=== PATIENT | male | born 1945 | race Caucasian/White ===

== ENCOUNTER → 2024-04-14 08:27 | Outpatient (REF) | payer OTHER, SELFPAY | LOC: RAD 08:27 | PROVIDERS: ATTENDING PHYSICIAN Internal Medicine | DX: M25.552 Pain in left hip (principal) | CPT/HCPCS: 73502 ==

== ENCOUNTER → 2024-05-12 17:24 | Outpatient (REF) | payer OTHER, SELFPAY | LOC: MRI 17:24 | PROVIDERS: ATTENDING PHYSICIAN Orthopaedic Surgery; FAMILY PHYSICIAN Internal Medicine | DX: M16.12 Unilateral primary osteoarthritis, left hip (principal) | CPT/HCPCS: 73721 ==

== ENCOUNTER → 2024-07-07 12:59 | Outpatient (REF) | payer OTHER, SELFPAY | LOC: RCS 12:59 | PROVIDERS: ATTENDING PHYSICIAN Student in an Organized Health Care Education/Training Program; FAMILY PHYSICIAN Internal Medicine | DX: I10 Essential (primary) hypertension (principal) | CPT/HCPCS: 93306 ==

== ENCOUNTER 2024-08-15 13:13 | Outpatient (RCR) | payer OTHER, SELFPAY | END 2024-08-15 23:59 | disposition home or self-care (01) | LOC: RPT 13:13 | PROVIDERS: ATTENDING PHYSICIAN Physician Assistant; FAMILY PHYSICIAN Internal Medicine | DX: Z47.1 Aftercare following joint replacement surgery (principal); Z73.6 Limitation of activities due to disability; R26.2 Difficulty in walking, not elsewhere classified; M62.81 Muscle weakness (generalized); M25.552 Pain in left hip; Z96.642 Presence of left artificial hip joint | CPT/HCPCS: 97110; 97112; 97161 ==

== ENCOUNTER 2024-08-25 10:53 | Outpatient (RCR) | payer OTHER, SELFPAY | END 2024-08-25 23:59 | disposition home or self-care (01) | LOC: RPT 10:53 | PROVIDERS: ATTENDING PHYSICIAN Physician Assistant; FAMILY PHYSICIAN Internal Medicine | DX: Z47.1 Aftercare following joint replacement surgery (principal); R26.2 Difficulty in walking, not elsewhere classified; M62.81 Muscle weakness (generalized); Z73.6 Limitation of activities due to disability; Z96.642 Presence of left artificial hip joint | CPT/HCPCS: 97110; 97112; 97530 ==

== ENCOUNTER 2025-06-03 01:40 | Inpatient (IN) | payer OTHER, SELFPAY ==
[2025-06-02 18:37] VITALS: BP 156/84
--- NOTE | 2025-06-02 22:55 | ED.GENMED ---
History of Present Illness
General
Chief Complaint: Musculo-Skeletal Complaint
Time Seen by Provider: 06/02/25 20:33
History of Present Illness
History of Present Illness:
The patient is an 79-year-old male with history of hypertension, hyperlipidemia, impaired fasting glucose, hypothyroidism, lumbar disc disease, presenting with right arm weakness and a cramping episode. The weakness began approximately three weeks
ago and has been progressively worsening since its onset. The patient reports an inability to fully extend or control his arm. This weakness has been consistent, without associated pain, and primarily affects the right hand and wrist, leading to
difficulty in performing tasks such as grasping. Tonight, while eating dinner, the patient experienced a sudden cramp in his right hand, causing uncontrolled shaking and finger stiffness, lasting over 30 seconds. There was no loss of consciousness,
and the episode resolved spontaneously. The patient reports no neck pain and denies any issues with ambulation or balance. He is right-hand dominant.
The incident occurred during dinner, while the patient was consuming soup, which triggered sudden hand cramping. He noted it as the first such occurrence. No prior history of similar episodes was mentioned. He was evaluated by Dr. Alfonso on May 29
with concern for neuropraxia and is scheduled for EMG, nerve conduction study of right upper extremity June 08 and is scheduled for MRI cervical spine June 12. The patient has been scheduled for an EMG nerve conduction study and MRI of the neck
to further assess for possible nerve compression or other underlying issues.
Patient states he has had no difficulty ambulating, no chest pain or shortness of breath, no dizziness nor lightheadedness. He was working out in the garden today, lifting buckets etc. He has had no episodes of dropping objects but admits that he
has had progressive weakness of his right hand grasp and progressive weakness in right wrist extension over the past 3 weeks.
Past History
Past History
ED Past Medical History: HTN, Hypercholesterolemia, Hypothyroidism and Other (Lumbar disc disease, impaired fasting glucose)
ED Past Surgical History: Orthopedic (Hip replacement)
Social History
Tobacco: Non-smoker
Alcohol: None
Personal:
Living: with family
Employment: Retired
Family History
Family History: Other (Noncontributory)
Phy Exam
Physical Exam
Physical Exam:
GENERAL: 79-year-old gentleman who appears somewhat younger than stated age, bright and alert, pleasant, easily communicative and in no acute distress. and daughter are accompanying.
EYE: pupils equal and reactive. anicteric. No facial asymmetry.
NECK: Supple, nontender, no meningismus, full range of motion without difficulty nor pain, no significant adenopathy.
ENT: oral mucosa is moist. No rhinorrhea.
CARDIAC: Regular rate and rhythm. no murmur.
LUNGS: Clear breath sounds bilaterally, no acute respiratory distress, no wheezes/rales/rhonchi
ABDOMEN: Soft, nondistended, without focal tenderness
NEUROLOGICAL: Alert and oriented x3, there is mild weakness right wrist extension, very mild weakness right hand grasp. Negative drift. Shoulder shrug is equal bilaterally. Sensation grossly intact bilaterally. Gait is austin and steady.
SKIN: Warm and dry, normal color, skin intact. No rash.
MUSCULOSKELETAL: No C/C/E. peripheral pulses are full and equal b/l. No palpable tenderness.
PSYCH: Normal and appropriate interaction.
Course
Orders/Labs/Results
Orders:
Orders
06/02/25 22:30
CT Head W/o Iv Contrast Urgent
Comment:
Reason For Exam: 3 week hx R arm/hand weakness-worsening
06/02/25 23:55
Complete Blood Count/With Diff Urgent
Comprehensive Metabolic Panel Urgent
Abnormal Lab Results
06/02/25
23:55
WBC 13.3 H 10^3/uL
(4.8-10.8)
RBC 3.98 L 10^6/uL
(4.70-6.10)
Hgb 12.1 L g/dL
(13.0-18.0)
Hct 35.0 L %
(39.0-52.0)
Abs Immat Gran (auto) 0.1 H 10^3/uL
(0-0.05)
Absolute Neuts (auto) 8.1 H 10^3/uL
(1.4-6.5)
Absolute Monos (auto) 1.4 H 10^3/uL
(0.1-0.6)
Monocytes % 10.2 H %
(1.7-9.3)
06/02/25 23:55
Vital Signs
Initial and Last Documented VS:
Initial Vital Signs
Temp Pulse Resp BP Pulse Ox
98.6 F 100 16 156/84 97
06/02/25 18:37 06/02/25 18:37 06/02/25 18:37 06/02/25 18:37 06/02/25 18:37
Last Documented Vital Signs
Temp Pulse Resp BP Pulse Ox
98.6 F 100 16 156/84 97
06/02/25 18:37 06/02/25 18:37 06/02/25 18:37 06/02/25 18:37 06/02/25 22:57
MDM/Problems Addressed
Differential Diagnosis Includes:
The Differential Diagnosis includes, in no particular order and is not limited to:
1. Cervical radiculopathy
2. Peripheral neuropathy
3. Carpal tunnel syndrome
4. Brachial plexus injury
5. Stroke
6. Muscular dystrophy
7. Amyotrophic lateral sclerosis (ALS)
8. Multiple sclerosis
9. Myasthenia gravis
10. Essential tremor
MDM/Problems Addressed:
Right upper extremity weakness, progressive over the past 3 weeks. No associated pain.
Episode of right hand/forearm flexion contraction/muscle spasm/cramping tonight lasting approximately 30 seconds.
Concern for peripheral neuropathy versus cervical radiculopathy, other consideration is subacute focal stroke.
No other associated symptoms, no change in medications. No dizziness or lightheadedness. No change in medications. Nothing to suggest electrolyte abnormality. He follows regularly with PCP, cardiology, up-to-date with routine laboratory studies
thus exacerbation of thyroid disorder is unlikely.
Recommend CT of the head.
He is already scheduled for an outpatient EMG as well as MRI in the near future.
It is also reassuring that cramping episode was brief in duration and there has been overall lack of associated neurologic symptoms.
Chronic conditions affecting care: HTN
*Radiology
Radiology exam reviewed: radiology read reviewed
*Pulse Oximetry
SaO2: 97
Oxygen Mode of Delivery: Room air
Patient hypoxic: no
*Critical Care Note
Total Time (30-74mins, 75-104mins- exclusive of procedures): Not Applicable
Update Note
Update Note:
23:48
CAT scan shows moderate-sized area of vasogenic edema in the high left frontal lobe. Suggestion of a 1.2 x 0.8 cm cortical versus extra-axial lesion in this location. There is no mass effect nor midline shift. No intracranial hemorrhage.
Findings however concerning for neoplastic process. Other consideration is infection/cerebritis but overall history is not suggestive of infectious process.
Due to concern for neoplastic process as well as concern for somewhat rapidly progressing symptoms patient will require acute hospitalization for further evaluation.
ED Attending Note
-
Portions of this chart may have been created with voice recognition software.� Occasional wrong word or��sound alike� substitutions may have occurred due to the inherent limitations of voice recognition software.
Discharge Plan
Departure
Patient Disposition: Admit
Date of Disposition: 06/02/25
Time of Disposition: 23:50
Admit to: Med/Surg
Admit to doctor: Morgan
Presentation/result/management discussed w/ accepting MD/DO: Hospitalist
Condition: Serious
Discharge Problem:
Weakness of right upper extremity, vasogenic edema left frontal lobe
Referrals:
Rosa Delgado MD [Family Provider, Internal Medicine]
Interventions
Interventions:
*Risk Screen - Suicide Last Done: 06/02/25 18:37
*General Assessment Last Done: 06/02/25 22:48
*Neglect/Abuse Screening Last Done: 06/02/25 18:37
*ED- Fall Risk Assessment Last Done: 06/02/25 22:48
*ED COVID-19 Vaccine History Last Done: 06/02/25 22:48
ED-Musculoskeletal Assessment Last Done: 06/02/25 22:48
Discharge Date and Time
Print Language: CITIZEN OF [place]
[2025-06-03 00:07] LABS: Hematocrit 35.0 % (39.0-52.0); Hemoglobin 12.1 g/dL (13.0-18.0); Mean Corp Hgb Conc. 34.6 g/dL (33.0-37.0); Mean Corpuscular Volume 87.9 fL (80.0-94.0); Nucleated Red Blood Cells % 0 % (-); Platelet Count 296 10^3/uL (130-400); Red Cell Dist. Width 12.4 % (11.5-14.5)
[2025-06-03 00:28] LABS: ALT (SGPT) 15 U/L (0-50); AST (SGOT) 14 U/L (17-59); Albumin 4.3 g/dl (3.5-5.0); Alkaline Phosphatase 50 U/L (38-126); Blood Urea Nitrogen 29 mg/dl (9-20); Calcium 9.4 mg/dl (8.4-10.2); Carbon Dioxide 22 mmol/L (22-30); Chloride 106 mmol/L (98-107); Glucose 151 mg/dl (70-99); Potassium 4.4 mmol/L (3.5-5.1); Sodium 136 mmol/L (135-145); Total Protein 6.8 g/dl (6.3-8.2); eGFR > 60.00
--- NOTE | 2025-06-03 00:28 | HPS.HSE ---
Family Physician
-
Family Physician: Rosa Delgado
Chief Complaint
-
Right hand weakness
History of Present Illness
This is a 79-year-old male with past medical history significant for hypertension, hyperlipidemia, hypothyroid, GERD/acid reflux presenting to the emergency department to the hospital with 3 weeks of right upper extremity weakness.
Patient reports that about 3 weeks ago he started noticing weakness specifically in the extension of his right hand. He also notes weakness in his fingers on extension. He still able to make a fist. He denies any paresthesias. He denies any
numbness. He has not been having any tingling. He denies any swelling. He denies any injury to the elbows or shoulders or neck. He has not been having any neck stiffness or pain. He denies any headache nausea or vomiting. He denies having any
double vision or blurry vision. He denies any weakness anywhere else. He denies any prior history of CVA.
Over the last few weeks he also reports that he has been having some abdominal symptoms which included some bloating after eating with associated heartburn that radiates to his back. He has been taking famotidine premeals without much improvement.
He denies any melena. He denies having any hematochezia. Patient has no recent travels but he noted that while working in the yard a few weeks ago he had mosquito bite.
In the emergency department he was afebrile, blood pressure was 156/80 with a pulse of 100 and satting 99% on room air.
White count was 13.3 hemoglobin 12.1 plate count of 296. He is electrolytes were all normal. BUN/creatinine were normal. Glucose was normal. LFTs were all within normal limits.
CT of the head was notable for moderate size area of vasogenic edema in the high left frontal lobe with suggestion of 1.2 x 0.8 cm cortical or extra-axial lesion in this location. Concerning for neoplastic process. No significant mass effect or
midline shift. No acute intracranial hemorrhage.
Medical History
Past Medical History
Past Medical History: Reports GERD, HTN and Hypercholesterolemia
Past Surgical History: Reports Orthopedic (Left total knee arthroplasty)
Social History
Tobacco: Former Smoker
Alcohol: Occasional
Drug: None
Personal:
Living: With Family
Employment: Retired
Family History
Family History: Not pertinent
Allergies / Home Medications
Allergies reflects when Allergies were last updated in [employer].
Home Medications with original date entered in [employer]
Allergy/Medication List:
Allergies
Allergy/AdvReac Type Severity Reaction Status Date / Time
No Known Allergies Allergy Unverified 06/02/25 18:37
Home Medications
hydroCHLOROthiazide 25 MG 1 tablet in the morning Orally Once a day for 90 days Aug, Active
Spironolactone 50 MG 1 tablet Orally Once a day for 90 days Jun, Active
Synthroid 75 MCG 1 tablet on an empty stomach in the morning Orally Once a day for 90 days Active
Cardizem CD 360 MG 1 capsule Orally Once a day for 90 days Active
Famotidine 20 MG TAKE 1 TABLET BY MOUTH TWICE A DAY for 90 days Active
Crestor 10 MG take 1 tablet by oral route every day Oral Once a day for 90 days Nov, Active
Nitroglycerin 0.[address] 1 tablet by sublingual route as needed for high blood pressure Sublingual Once a Day for 90 days Active
Multi-Vitamins take 1 tablet by oral route every day with food Oral Active
Celecoxib 100 MG 1 capsule with food Orally Twice a Day for 15 days Jun, Active
Cozaar 50 MG 1 tablet Orally Twice a Day for 90 days Aug, Active
Review of Systems
-
Constitutional: Reports No Symptoms
EENT: Reports No Symptoms
Respiratory: Reports No Symptoms
Cardiac: Reports No Symptoms
Abdomen/GI: Reports Abdominal Pain; Denies Nausea, Vomiting, Diarrhea, Black Stools or Anorexia
: Reports No Symptoms
Musculoskeletal: Reports No Symptoms
Skin: Reports No Symptoms
Neurological: Reports Weakness (Weakness on extension of wrist and fingers of the right upper extremity)
Endocrine: Reports No Symptoms
Hematologic/Lymphatic: Reports No Symptoms
Psych: Reports No Symptoms
Physical Exam
Vital Signs
Vital Signs
Temp Pulse Resp BP Pulse Ox
98.6 F 100 16 156/84 97
06/02/25 18:37 06/02/25 18:37 06/02/25 18:37 06/02/25 18:37 06/02/25 22:57
Physical Exam
General: Well Developed, Well Nourished and No Apparent Distress
HEENT: NormoCephalic, Moist mucous membranes and Atraumatic
Respiratory: Clear
Cardiac: S1/S2 and Regular Rhythm; No Murmur or Rub
GI: Soft, Non Tender, Non Distended and Normal Bowel Sounds; No Organomegaly
Rectal: Deferred by Provider
Musculoskeletal: No Clubbing, No Cyanosis and No Edema
Skin: No Rash
Neuro: AO x 3, Cranial Nerves Intact, No Sensory Deficits and Other (3 out of 5 weakness on extension of the wrist and fingers of the right upper extremity); No Slurred Speech or Facial Droop
Psych: Calm
Laboratory Results
-
06/02/25 23:55
Data Reviewed
-
CT Scan: Report Reviewed by me
Lab Data: Labs Reviewed by me
Old Records: Reviewed
Impression/Plan
-
IMPRESSION:
79-year-old with past medical history of hypertension, hyperlipidemia, hypothyroid presenting with weakness in the right upper extremity especially at the wrist and fingers and found to have left frontal lobe lesion with vasogenic edema concerning
for neoplastic process. No significant mass effect or midline shift. His labs are all within normal limits. He is currently well-appearing and in no acute distress.
PLAN:
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 No prior history of malignancy. Likely explanation for his weakness.
-Admit to [facility]
-Start decadron for mild to moderate symptoms, will ommit loading dose and give 2mg bid
-MRI brain with and without contrast
-Neurology consult
-May need neurosurgery consult following imaging
-Neurochecks every shift
Dyspepsia - Normal lfts, benign abdominal exam, no melena.
- start ppi
- continue famotidine
- antiemetics
- stool occult blood testing
- consider GI consult if + occult, otherwise outpatient dyspepsia w/u
HTN - stable
- continue his cardizem, spironolactone, hctz and losartan
- continue rosuvostatin
DVT PPX - lovenox sq
Code status - Full Code
[2025-06-03] MEDS: DECADRON 2 MG PO ×3 (01:53→21:18)
[2025-06-03 02:30] VITALS: BP 136/70; BMI 26.7
[2025-06-03] MEDS: SYNTHROID 75 MCG PO (05:34)
[2025-06-03 05:52] LABS: Hematocrit 37.8 % (39.0-52.0); Hemoglobin 12.7 g/dL (13.0-18.0); Mean Corp Hgb Conc. 33.6 g/dL (33.0-37.0); Mean Corpuscular Volume 90.9 fL (80.0-94.0); Platelet Count 322 10^3/uL (130-400); Red Cell Dist. Width 12.5 % (11.5-14.5)
[2025-06-03 06:15] LABS: Blood Urea Nitrogen 27 mg/dl (9-20); Calcium 9.5 mg/dl (8.4-10.2); Carbon Dioxide 20 mmol/L (22-30); Chloride 104 mmol/L (98-107); Estimated Creatinine Clearance 50 ml/min; Glucose 167 mg/dl (70-99); Magnesium 2.1 mg/dl (1.6-2.3); Potassium 4.6 mmol/L (3.5-5.1); Sodium 135 mmol/L (135-145); eGFR > 60.00
[2025-06-03 08:29] VITALS: BP 122/59
[2025-06-03] MEDS: CARDIZEM CD 360 MG PO (08:52)
[2025-06-03] MEDS: PROTONIX 40 MG PO (08:52)
[2025-06-03] MEDS: ALDACTONE 50 MG PO (08:53)
[2025-06-03] MEDS: ORETIC 12.5 MG PO (08:54)
[2025-06-03] MEDS: COZAAR 50 MG PO ×2 (08:54→21:24)
--- NOTE | 2025-06-03 09:46 | W.PN.UPDATE ---
Addendum entered and electronically signed by Blu Rivero MD 06/03/25 12:52:
Discussed with neurology, no need for neurosurgery. MRI.
Original Note:
Update Note
Progress Note Update
Admitted past midnight. Nonbillable note
Patient is seen and examined at bedside
General: Well Developed, Well Nourished and No Apparent Distress
HEENT: NormoCephalic, Moist mucous membranes and Atraumatic
Respiratory: Clear
Cardiac: S1/S2 and Regular Rhythm; No Murmur or Rub
GI: Soft, Non Tender, Non Distended and Normal Bowel Sounds
Musculoskeletal: No Edema
Skin: No Rash
Neuro: AO x 3, Cranial Nerves Intact, No Sensory Deficits and Other (4 out of 5 weakness on extension of the wrist and fingers of the right upper extremity); No Slurred Speech or Facial Droop
Psych: Calm
Right upper extremity weakness
CT scan with moderate area of probable vasogenic edema in left frontal lobe due to extra-axial/cortical lesion
MRI pending
Continue with Decadron for now
Neurology evaluation
-Neurology consult
-May need neurosurgery consult following imaging
-cw Neurochecks
Dyspepsia - Normal lfts, benign abdominal exam, no melena.
- start ppi
- continue famotidine
- antiemetics
- consider GI consult if + occult, otherwise outpatient dyspepsia w/u
HTN - stable
- continue his cardizem, spironolactone, hctz and losartan
- continue rosuvostatin
asked RN for med rec; these meds arent listed in his chart
DVT PPX - lovenox sq
Code status - Full Code
[2025-06-03] MEDS: OMNIPAQUE 50 ML PO (12:27)
--- NOTE | 2025-06-03 14:28 | CON.NEURO ---
Neuro Assessment/Plan
Assessment
Head CT imgs rev'd, area of vasogenic edema high left frontal
MRI brain imgs rev'd with patient and family showing multiple ~5 enhancing masses bilateral hemispheres with the vasogenic edema
79 year old man, brain metastasis until proven otherwise
CT chest/abd/pel with IV/PO contrast looking for primary
all questions answered except that we will determine if LP is needed after the CT torso
Consultation
Order
Date of Consultation: 06/03/25
Requesting Provider: Blu Rivero
Reason for Consult: vasogenic edema
Subjective/Objective
Subjective Data
Date of Service: June 03, 2025
from h&p:
This is a 79-year-old male with past medical history significant for hypertension, hyperlipidemia, hypothyroid, GERD/acid reflux presenting to the emergency department to the hospital with 3 weeks of right upper extremity weakness.
Patient reports that about 3 weeks ago he started noticing weakness specifically in the extension of his right hand. He also notes weakness in his fingers on extension. He still able to make a fist. He denies any paresthesias. He denies any
numbness. He has not been having any tingling. He denies any swelling. He denies any injury to the elbows or shoulders or neck. He has not been having any neck stiffness or pain. He denies any headache nausea or vomiting. He denies having any
double vision or blurry vision. He denies any weakness anywhere else. He denies any prior history of CVA.
Objective Data
Vital Signs
Temp Pulse Resp BP Pulse Ox
36.3 C 77 21 122/59 96
06/03/25 08:29 06/03/25 08:29 06/03/25 08:29 06/03/25 08:29 06/03/25 08:29
Lab Results
06/03/25 05:30
06/03/25 05:30
Sodium 135 mmol/L (135-145) 06/03/25 05:30
Potassium 4.6 mmol/L (3.5-5.1) 06/03/25 05:30
BUN 27 mg/dl (9-20) H 06/03/25 05:30
Glucose 167 mg/dl (70-99) H 06/03/25 05:30
Calcium 9.5 mg/dl (8.4-10.2) 06/03/25 05:30
Patient Allergies
No Known Allergies Allergy (Unverified 06/02/25 18:37)
Physical Exam
-
AAOx3, speech clear, language intact
VFF, EOMI, right facial droop
RUE 4/5, LUE and bilat LE 5/5
sensation intact to touch
Medications
-
Active Medications
Generic Name Dose Route Start Last Admin
Trade Name Freq PRN Reason Stop Dose Admin
Acetaminophen 650 mg 06/03/25 03:02
Acetaminophen 325 Mg Tablet PO 07/01/25 03:01
Q4HPRN PRN
mild pain/QUACH/temp> 100.4F
Al Hydrox/Mg Hydrox/Simethicone 30 ml 06/03/25 03:02
Mag/Al/Simethicone Suspension 30 Ml Cup PO 07/01/25 03:01
Q6HPRN PRN
Heartburn
Bisacodyl 10 mg 06/03/25 03:02
Bisacodyl 10 Mg Rectal Suppository RECTAL 07/01/25 03:01
[id number] PRN
constipation
Dexamethasone 2 mg 06/03/25 08:00 06/03/25 08:52
Dexamethasone 2 Mg Tablet PO 07/01/25 07:59 2 mg
Q12 DAVID Administration
Diltiazem HCl 360 mg 06/03/25 08:00 06/03/25 08:52
Diltiazem 180 Mg Extended Release (24 H) Capsule PO 07/01/25 07:59 360 mg
DAILY DAVID Administration
Enoxaparin Sodium 40 mg 06/03/25 18:00
Enoxaparin Sodium 40 Mg/0.4 Ml Syringe SC 07/01/25 17:59
QPM DAVID
Famotidine 20 mg 06/04/25 08:00
Famotidine 20 Mg Tablet PO 07/02/25 07:59
DAILY DAVID
Hydrochlorothiazide 12.5 mg 06/03/25 08:00 06/03/25 08:54
Hydrochlorothiazide 12.5 Mg Tablet PO 07/01/25 07:59 12.5 mg
DAILY DAVID Administration
Levothyroxine Sodium 75 mcg 06/03/25 06:00 06/03/25 05:34
Levothyroxine 75 Mcg Tablet PO 07/01/25 05:59 75 mcg
DAILY @ 0600 DAVID Administration
Losartan Potassium 50 mg 06/03/25 08:00 06/03/25 08:54
Losartan 50 Mg Tablet PO 07/01/25 07:59 50 mg
BID DAVID Administration
Ondansetron HCl 4 mg 06/03/25 03:02
Ondansetron 4 Mg/2 Ml Vial IV 07/01/25 03:01
Q6HPRN PRN
nausea and vomiting
Pantoprazole Sodium 40 mg 06/03/25 08:00 06/03/25 08:52
Pantoprazole 40 Mg Delayed Release Tablet PO 07/01/25 07:59 40 mg
DAILY DAVID Administration
Polyethylene Glycol 17 grams 06/03/25 03:02
Polyethylene Glycol Powder 17 Grams Packet PO 07/01/25 03:01
DAILYPRN PRN
constipation
Rosuvastatin Calcium 10 mg 06/03/25 18:00
Rosuvastatin (Crestor) 10 Mg Tablet PO 07/01/25 17:59
QPM DAVID
Senna/Docusate Sodium 1 tablet 06/03/25 03:02
Docusate W/Senna (Aziza-Colace) Tablet PO 07/01/25 03:01
BIDPRN PRN
constipation
Sodium Chloride 0 flush 06/03/25 04:00
Sodium Chloride 0.9% (Flush) Syringe IV 07/01/25 03:59
PER PROTOCOL DAVID
Spironolactone 50 mg 06/03/25 08:00 06/03/25 08:53
Spironolactone 50 Mg Tablet PO 07/01/25 07:59 50 mg
DAILY DAVID Administration
Home Medications
�Medication �Instructions �Recorded
diltiazem HCl 360 mg 360 mg PO DAILY 06/03/25
capsule,extended release 24 hr
famotidine 20 mg tablet 20 mg DAILY 06/03/25
hydrochlorothiazide 25 mg PO DAILY 06/03/25
levothyroxine 75 mcg PO DAILY 06/03/25
losartan 50 mg tablet 50 mg PO BID 06/03/25
rosuvastatin 10 mg PO HS 06/03/25
spironolactone 50 mg PO DAILY 06/03/25
[2025-06-03 16:14] VITALS: BP 118/61
[2025-06-03] MEDS: CRESTOR 10 MG PO (18:35)
[2025-06-03] MEDS: LOVENOX 40 MG SC (18:35)
[2025-06-03 23:49] VITALS: BP 109/64
[2025-06-04] MEDS: SYNTHROID 75 MCG PO (06:13)
[2025-06-04 07:00] VITALS: BP 133/69
[2025-06-04 07:23] LABS: Hematocrit 36.6 % (39.0-52.0); Hemoglobin 12.4 g/dL (13.0-18.0); Mean Corp Hgb Conc. 33.9 g/dL (33.0-37.0); Mean Corpuscular Volume 89.3 fL (80.0-94.0); Nucleated Red Blood Cells % 0 % (-); Platelet Count 335 10^3/uL (130-400); Red Cell Dist. Width 12.5 % (11.5-14.5)
[2025-06-04 07:47] LABS: Blood Urea Nitrogen 31 mg/dl (9-20); Calcium 9.4 mg/dl (8.4-10.2); Carbon Dioxide 19 mmol/L (22-30); Chloride 104 mmol/L (98-107); Estimated Creatinine Clearance 50 ml/min; Glucose 201 mg/dl (70-99); Potassium 4.9 mmol/L (3.5-5.1); Sodium 135 mmol/L (135-145); eGFR > 60.00
--- NOTE | 2025-06-04 08:58 | CON.ONC ---
Addendum entered and electronically signed by Oumou Nolan MD 06/04/25 17:47:
Consult requested by Dr. Blu Rivero 06/03/25 at 11:41.
Consult performed by Dr. Oumou Beatty on 06/04/25 at 11:30 am.
Reason for consult: lung and brain masses
Original Note:
Impression
Impression
79yoM PMH HTN, HLD, hypothyroidism, GERD presenting with abdominal symptoms 2 months, 3 weeks RUE weakness with an onset of arm spasming. FH cancer. Hx 30 pack years.
Exam positive for mild RUE weakness compared to LUE. Lung sounds clear bilaterally. Neuro exam grossly intact. Imaging positive for multiple lung and brain masses with possibility of small colon mass vs stool. WBC elevated 14.8. Mild normocytic
anemia 12.4. Afebrile vitals stable.
CT C/A/P: Extensive diffuse bilateral pulmonary metastatic disease. There is a dominant mass in the right upper lobe measuring 4.1 cm. Conceivably, this could represent primary neoplasm.
Hilar and mediastinal adenopathy.
2.5 cm mass versus focal stool at the junction of the distal descending colon and proximal sigmoid colon. Recommend correlation with colonoscopy.
Incidental findings include moderately prominent gynecomastia. Renal cysts.
Brain MRI: Several (approximately 4) enhancing intracranial brain masses at the ríos-white matter junctions with associated vasogenic edema, highly suspicious for metastases. No MR evidence for acute infarct or hemorrhage
Sudden arm spasm is concerning for partial seizure with correlated brain masses. Symptoms improved on dexamethasone.
Plan
Plan
#Brain masses
Continue dexamethasone. Monitor neuro symptoms.
[facility] consult for brain mets SRS vs WBT.
#Lung masses
Recommend consult to pulmonology for possible bronchoscopic biopsy. Rule out fungal origin vs malignancy. Improvement of neuro symptoms on dexamethasone points towards malignant origin. Confirm with bx.
Patient History
History of Present Illness
79yoM PMH HTN, HLD, hypothyroidism, GERD presenting with 3 weeks RUE weakness with an onset of arm spasming that prompted presentation. Pt reports abdominal pain and reflux since april with change in taste, reduced appetite, and 10lb weight
loss. Denies blood in stool, change in BM, or emesis. No change in stool caliber. Denies dizziness, blurry vision, headaches. Daughter in room describes complaints of bloating and distention as well.
Today, pt is feeling well with improved r arm weakness and no spasms.
He reports his last colonoscopy was when he was 71 years old. No personal hx cancer. SH positive for remote smoking hx for 30 pack years quit 35 years ago. 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 in room reports possible
exposure to moldy house when helping son on construction project.
FH: Father and brothers of unknown type of cancer. One brother had lung cancer.
Past-Medical/Surgical History
PSH:L hip replacement
Patient Medication
�Medication �Instructions �Recorded �Confirmed �Last Taken �Type
diltiazem HCl 360 mg 360 mg PO DAILY Heart Disease/BP 06/03/25 06/03/25 06/02/25 08:00 History
capsule,extended release 24 hr
famotidine 20 mg tablet 20 mg DAILY Gastrointestinal Issue 06/03/25 06/03/25 06/02/25 08:00 History
hydrochlorothiazide 25 mg PO DAILY Blood Pressure 06/03/25 06/03/25 06/03/25 08:00 History
levothyroxine 75 mcg PO DAILY Thyroid 06/03/25 06/03/25 06/03/25 06:00 History
losartan 50 mg tablet 50 mg PO BID Blood Pressure 06/03/25 06/03/25 06/03/25 08:00 History
rosuvastatin 10 mg PO HS cholesterol 06/03/25 06/03/25 06/01/25 18:00 History
spironolactone 50 mg PO DAILY Fluid Retention/BP 06/03/25 06/03/25 06/02/25 08:00 History
Active Medications
Generic Name Dose Route Start Last Admin
Trade Name Freq PRN Reason Stop Dose Admin
Acetaminophen 650 mg 06/03/25 03:02
Acetaminophen 325 Mg Tablet PO 07/01/25 03:01
Q4HPRN PRN
mild pain/QUACH/temp> 100.4F
Al Hydrox/Mg Hydrox/Simethicone 30 ml 06/03/25 03:02
Mag/Al/Simethicone Suspension 30 Ml Cup PO 07/01/25 03:01
Q6HPRN PRN
Heartburn
Bisacodyl 10 mg 06/03/25 03:02
Bisacodyl 10 Mg Rectal Suppository RECTAL 07/01/25 03:01
[id number] PRN
constipation
Dexamethasone 2 mg 06/03/25 08:00 06/03/25 21:18
Dexamethasone 2 Mg Tablet PO 07/01/25 07:59 2 mg
Q12 DAVID Administration
Diltiazem HCl 360 mg 06/03/25 08:00 06/03/25 08:52
Diltiazem 180 Mg Extended Release (24 H) Capsule PO 07/01/25 07:59 360 mg
DAILY DAVID Administration
Enoxaparin Sodium 40 mg 06/03/25 18:00 06/03/25 18:35
Enoxaparin Sodium 40 Mg/0.4 Ml Syringe SC 07/01/25 17:59 40 mg
QPM DAVID Administration
Famotidine 20 mg 06/04/25 08:00
Famotidine 20 Mg Tablet PO 07/02/25 07:59
DAILY DAVID
Hydrochlorothiazide 12.5 mg 06/03/25 08:00 06/03/25 08:54
Hydrochlorothiazide 12.5 Mg Tablet PO 07/01/25 07:59 12.5 mg
DAILY DAVID Administration
Levothyroxine Sodium 75 mcg 06/03/25 06:00 06/04/25 06:13
Levothyroxine 75 Mcg Tablet PO 07/01/25 05:59 75 mcg
DAILY @ 0600 DAVID Administration
Losartan Potassium 50 mg 06/03/25 08:00 06/03/25 21:24
Losartan 50 Mg Tablet PO 07/01/25 07:59 50 mg
BID DAVID Administration
Ondansetron HCl 4 mg 06/03/25 03:02
Ondansetron 4 Mg/2 Ml Vial IV 07/01/25 03:01
Q6HPRN PRN
nausea and vomiting
Pantoprazole Sodium 40 mg 06/03/25 08:00 06/03/25 08:52
Pantoprazole 40 Mg Delayed Release Tablet PO 07/01/25 07:59 40 mg
DAILY DAVID Administration
Polyethylene Glycol 17 grams 06/03/25 03:02
Polyethylene Glycol Powder 17 Grams Packet PO 07/01/25 03:01
DAILYPRN PRN
constipation
Rosuvastatin Calcium 10 mg 06/03/25 18:00 06/03/25 18:35
Rosuvastatin (Crestor) 10 Mg Tablet PO 07/01/25 17:59 10 mg
QPM DAVID Administration
Senna/Docusate Sodium 1 tablet 06/03/25 03:02
Docusate W/Senna (Aziza-Colace) Tablet PO 07/01/25 03:01
BIDPRN PRN
constipation
Sodium Chloride 0 flush 06/03/25 04:00
Sodium Chloride 0.9% (Flush) Syringe IV 07/01/25 03:59
PER PROTOCOL DAVID
Spironolactone 50 mg 06/03/25 08:00 06/03/25 08:53
Spironolactone 50 Mg Tablet PO 07/01/25 07:59 50 mg
DAILY DAVID Administration
Review of Systems
-
All Other Systems: Reviewed and Negative
Physical Exam
-
General: Well Developed, No Apparent Distress and Comfortable
HEENT: Moist Mucous Membranes
Cardiology: Normal Sinus Rhythm
Pulmonary: Clear
GI: Soft
Musculoskeletal: No Edema
Neurology: Other (R hand strength 4+, equal strength bilateral extremities, romberg negative, PERRL, extraocular movements intact)
Skin: Warm and Dry
Labs
Lab Results
WBC 14.8 10^3/uL (4.8-10.8) H 06/04/25 06:33
RBC 4.10 10^6/uL (4.70-6.10) L 06/04/25 06:33
Hgb 12.4 g/dL (13.0-18.0) L 06/04/25 06:33
Hct 36.6 % (39.0-52.0) L 06/04/25 06:33
MCV 89.3 fL (80.0-94.0) 06/04/25 06:33
MCH 30.2 pg (27.0-31.0) 06/04/25 06:33
MCHC 33.9 g/dL (33.0-37.0) 06/04/25 06:33
RDW 12.5 % (11.5-14.5) 06/04/25 06:33
Plt Count 335 10^3/uL (130-400) 06/04/25 06:33
MPV 10.7 fL (7.4-10.4) H 06/04/25 06:33
Abs Immat Gran (auto) 0.1 10^3/uL (0-0.05) H 06/04/25 06:33
Absolute Neuts (auto) 12.1 10^3/uL (1.4-6.5) H 06/04/25 06:33
Absolute Lymphs (auto) 2.3 10^3/uL (1.2-3.4) 06/04/25 06:33
Absolute Monos (auto) 0.3 10^3/uL (0.1-0.6) 06/04/25 06:33
Absolute Eos (auto) 0.0 10^3/uL (0-0.7) 06/04/25 06:33
Absolute Basos (auto) 0.0 10^3/uL (0-0.2) 06/04/25 06:33
Immature Gran % 0.9 % (0-0.5) H 06/04/25 06:33
Neutrophils % 81.6 % (42.2-75.2) H 06/04/25 06:33
Lymphocytes % 15.3 % (20.5-51.1) L 06/04/25 06:33
Monocytes % 2.1 % (1.7-9.3) 06/04/25 06:33
Eosinophils % 0.0 % (0-6) 06/04/25 06:33
Basophils % 0.1 % (0-2) 06/04/25 06:33
Creatinine 1.1 mg/dL (0.7-1.3) 06/04/25 06:33
Vital Signs
Vital Signs
Temp Pulse Resp BP Pulse Ox
98.1 F 76 19 133/69 98
06/04/25 07:00 06/04/25 07:00 06/04/25 07:00 06/04/25 07:00 06/04/25 07:00
[2025-06-04] MEDS: PEPCID 20 MG PO (09:28)
[2025-06-04] MEDS: CARDIZEM CD 360 MG PO (09:28)
[2025-06-04] MEDS: ALDACTONE 50 MG PO (09:28)
[2025-06-04] MEDS: DECADRON 2 MG PO ×2 (09:29→22:31)
[2025-06-04] MEDS: PROTONIX 40 MG PO (09:29)
[2025-06-04] MEDS: ORETIC 12.5 MG PO (09:29)
[2025-06-04] MEDS: COZAAR 50 MG PO ×2 (09:29→22:31)
--- NOTE | 2025-06-04 11:35 | W.PN.HOSP.TC ---
Today's Communication/Plan
-
see PN
Assessment / Plan
Assessment / Plan
79yo M with PMHX of hypothyroidism,HTN, HLD came with weakness and spasm of R hand, found Several (approximately 4) enhancing intracranial brain masses at the ríos-white matter junctions with associated vasogenic edema, highly suspicious for
metastases and Extensive diffuse bilateral pulmonary metastatic disease and 2.5 cm mass versus focal stool at the junction of the distal descending colon and proximal sigmoid
A/P:
#Brain mets
#Lung mets
#distal descending colonic mass
Oncologist: get pulm for biopsy
Neurologist and NEuroSx: cont KEppra, dexamethasone, get radiation oncology cosnult
Neurochecks
#Leukocytosis
most liekly 2/2 steroids
#essential HTN
#Hypothyroidism
cont home meds
DVT ppx lovenox
Full code
I have spent at least 59min reviewing chart, test results, communication with consultants, family and providing direct patient care
Anticipated Discharge: 24 - 48 hours
Subjective/Interval History
-
Date of Service: June 04, 2025
Objective Data
-
Labs:
Laboratory Results
06/04/25
06:33
WBC 14.8 H
Hgb 12.4 L
Hct 36.6 L
Plt Count 335
Sodium 135
Potassium 4.9
Chloride 104
Carbon Dioxide 19 L
BUN 31 H
Creatinine 1.1
Glucose 201 H
Calcium 9.4
Vital Signs:
Vital Signs
Temp Pulse Resp BP Pulse Ox
98.1 F 67 19 130/72 98
06/04/25 07:00 06/04/25 09:28 06/04/25 07:00 06/04/25 09:28 06/04/25 07:00
Review of Systems
-
History Source: Patient
All other systems: Reviewed and negative
Physical Exam
-
General: Comfortable
HEENT: Normocephalic
Neuro: Awake, Alert, Oriented, AO x 3 and No Motor Deficits
Psych: Calm
--- NOTE | 2025-06-04 11:40 | CON.PUL ---
Consultation
Consultation Request
Date/Time Consultation Requested: 06/04/2025-11 45 AM
Date/Time Consultation Performed: 06/04/2020 5-11 45 AM
Requesting Provider: Hospitalist
Performing Provider: Dr. Espinosa
Reason for Consultation: Lung mass
Medical History
-
Chief Complaint: Lung masses
History of Present Illness:
79-year-old former smoking male with a history of hypertension, hyperlipidemia, GERD presented with right upper extremity weakness and found to have suspected metastatic malignancy-pulmonary consulted for lung biopsy-bronchoscopic versus needle
biopsy 06/04/2025.. The patient denies any shortness of breath at rest, chest pain, chest tightness, productive cough, chest congestion, abdominal pain, nausea, leg swelling or increased weakness.
Past Medical History
Past Medical History: None (Hypertension. Hyperlipidemia. GERD. Left knee arthroplasty.)
Social History
Tobacco: Former Smoker
Alcohol: Occasional
Drug: None
Personal:
Living: With Family
Occupational Exposures: No known asbestos exposure
Environmental Exposures: No known tuberculosis exposure
Family History
Family History: Reviewed & Not Pertinent ( brother with lung cancer)
Allergies / Home Medications
Allergies
Allergy/AdvReac Type Severity Reaction Status Date / Time
No Known Allergies Allergy Unverified 06/02/25 18:37
Home Medications
�Medication �Instructions �Recorded �Confirmed �Last Taken �Type
diltiazem HCl 360 mg 360 mg PO DAILY Heart Disease/BP 06/03/25 06/03/25 06/02/25 08:00 History
capsule,extended release 24 hr
famotidine 20 mg tablet 20 mg DAILY Gastrointestinal Issue 06/03/25 06/03/25 06/02/25 08:00 History
hydrochlorothiazide 25 mg PO DAILY Blood Pressure 06/03/25 06/03/25 06/03/25 08:00 History
levothyroxine 75 mcg PO DAILY Thyroid 06/03/25 06/03/25 06/03/25 06:00 History
losartan 50 mg tablet 50 mg PO BID Blood Pressure 06/03/25 06/03/25 06/03/25 08:00 History
rosuvastatin 10 mg PO HS cholesterol 06/03/25 06/03/25 06/01/25 18:00 History
spironolactone 50 mg PO DAILY Fluid Retention/BP 06/03/25 06/03/25 06/02/25 08:00 History
Review of Systems
-
Unable to Obtain full review of systems at this time due to: Other ( per HPI)
Vitals / Labs / Diagnostic Testing
Vital Signs
Temp Pulse Resp BP Pulse Ox
98.1 F 67 19 130/72 98
06/04/25 07:00 06/04/25 09:28 06/04/25 07:00 06/04/25 09:28 06/04/25 07:00
Lab Data
06/04/25 06:33
06/04/25 06:33
Diagnostic Testing:
Physical Exam
-
Exam:
well-nourished and well-developed in no apparent distress
HEENT-atraumatic, normocephalic
Neck-supple, no JVD, no bruit
Heart-regular rate and rhythm-no murmurs, rubs or gallops
Chest-clear to auscultation, no wheezes, crackles
Back-no tenderness
Abdomen-soft, nontender, nondistended, no hepatosplenomegaly
Extremities-no cyanosis, clubbing, edema and good peripheral pulses
Integument-intact, no rashes, lesions or ecchymosis
Neurology-alert and oriented, nonfocal motor and sensory exam
Assessment
-
79-year-old former smoking male with a history of hypertension, hyperlipidemia, GERD presented with right upper extremity weakness and found to have suspected metastatic malignancy-pulmonary consulted for lung biopsy-bronchoscopic versus needle
biopsy 06/04/2025.
Suspected metastatic cancer-brain mets, lung mets, distal descending colonic mass
Leukocytosis
Mild normocytic anemia-hemoglobin 12.4
Hyperglycemia
Conditions present prior to admission:
Hypertension.
Hyperlipidemia.
Hypothyroid
GERD.
Former smoker
Left knee arthroplasty.
Plan
Respiratory status is currently stable-based on symptoms and radiographic review he likely has metastatic cancer
CT chest personally reviewed-numerous probable metastatic lesions-bronchoscopically likely amenable, however, multiple peripheral lesions that could be needle biopsied with probable more rapid diagnosis.
Supplemental oxygen if needed.
Nebulizers if needed-currently not bronchospastic.
Multiple peripheral lesions there likely CT needle amenable and would recommend IR biopsy for sputum diagnosis and subsequent treatment
Benefits and risks of bronchoscopic as well as CT needle biopsy were reviewed with patient, , and [id number] at length.
Interventional radiology Consulted by Dr. Espinosa 06/04/25
Dr. Espinosa, reviewed with Dr. Beatty from oncology
DVT prophylaxis recommended.
Nutrition
Early mobilization
Diagnostic data:
Chest x-ray 09/13/2008-NAD
CT abdomen and pelvis/05/26-2 mm obstructing proximal left ureteral calculus, scattered hepatic calcifications suggesting granulomatous disease, 3 mm basilar right middle lobe nodule
CT head 06/02/2025-moderate area of probable vasogenic edema in the left frontal lobe due to cortical lesion
CT chest abdomen and pelvis 06/03/2025-numerous bilateral upper and lower lobe pulmonary nodules consistent with metastatic disease the largest measuring 4 cm, bilateral hilar adenopathy, right paratracheal adenopathy, 2.5 cm mass versus focal stool
junction distal descending colon and proximal sigmoid colon
MRI brain 06/03/25-1.6 cm homogeneous enhancing mass high left frontal lobe ríos-white matter junction surrounding vasogenic edema, no hemorrhage, additional 9 mm enhancing mass high posterior left parietal lobe, additional 8 mm rim-enhancing mass in
the right occipital lobe as well as a 5 mm rim-enhancing right temporoparietal lobe mass
Data Reviewed
-
EKG: Report reviewed by me
Radiology: Report reviewed by me
CT Scan: Image personally visualized and interpreted and Report reviewed by me
MRI: Image personally visualized and interpreted and Report reviewed by me
Medical Tests (Nuc Med, Echo etc): Report reviewed by me
Labs: Labs reviewed by me
Old Records: Reviewed
Total Time Spent with Patient (in minutes): 75
--- NOTE | 2025-06-04 12:10 | CM ---
Patient with physician. Initial assessment completed with and Giovana. Patient lives with , son, Giovana and 2 grandchildren (16-19 y/o) in a 2 story home plus partial basement, B/B on 1st, 5 steps to enter. [employer] patient was independent in
ambulation and ADL's, drives. No DME. No in-home services. No HC-POA. PCP is Dr. Rosa Delgado and Pharmacy is [facility] in [place]. Discharge POC: Anticipate home with no needs vs home with HH.
[2025-06-04 15:00] VITALS: BP 103/50
[2025-06-04] MEDS: LOVENOX 40 MG SC (17:43)
[2025-06-04] MEDS: CRESTOR 10 MG PO (17:43)
[2025-06-04 23:00] VITALS: BP 113/56
[2025-06-05] MEDS: SYNTHROID 75 MCG PO (05:34)
[2025-06-05 07:00] VITALS: BP 113/52
[2025-06-05] MEDS: PEPCID 20 MG PO (08:19)
[2025-06-05] MEDS: ALDACTONE 50 MG PO (08:19)
[2025-06-05] MEDS: PROTONIX 40 MG PO (08:20)
[2025-06-05] MEDS: DECADRON 2 MG PO ×2 (08:20→20:41)
[2025-06-05] MEDS: CARDIZEM CD 360 MG PO (08:20)
[2025-06-05] MEDS: COZAAR 50 MG PO ×2 (08:20→20:41)
[2025-06-05] MEDS: ORETIC 12.5 MG PO (08:20)
--- NOTE | 2025-06-05 08:39 | W.PN.ONC ---
Today's Communication / Plan
-
Plan reviewed with attending.
Impression
Impression
79yoM PMH HTN, HLD, hypothyroidism, GERD presenting with abdominal symptoms 2 months, 3 weeks RUE weakness with an onset of arm spasming. FH cancer. Hx 30 pack years.
Exam positive for mild RUE weakness compared to LUE. Lung sounds clear bilaterally. Neuro exam grossly intact. Imaging positive for multiple lung and brain masses with possibility of small colon mass vs stool. WBC elevated 14.8. Mild normocytic
anemia 12.4. Afebrile vitals stable.
CT C/A/P: Extensive diffuse bilateral pulmonary metastatic disease. There is a dominant mass in the right upper lobe measuring 4.1 cm. Conceivably, this could represent primary neoplasm.
Hilar and mediastinal adenopathy.
2.5 cm mass versus focal stool at the junction of the distal descending colon and proximal sigmoid colon. Recommend correlation with colonoscopy.
Incidental findings include moderately prominent gynecomastia. Renal cysts.
Brain MRI: Several (approximately 4) enhancing intracranial brain masses at the ríos-white matter junctions with associated vasogenic edema, highly suspicious for metastases. No MR evidence for acute infarct or hemorrhage
Sudden arm spasm is concerning for partial seizure with correlated brain masses. Symptoms improved on dexamethasone.
Plan
Plan
#Brain masses
Continue dexamethasone. Monitor neuro symptoms. Keppra per neuro recs.
RadOnc aware
#Lung masses
Biopsy planned for tomorrow with IR. Improvement of neuro symptoms on dexamethasone points towards malignant origin. Confirm with bx.
Follow up heme/onc outpt.
Subjective/Objective
Subjective/Objective
No acute overnight events. Pt reports resolving arm weakness.
PE:
Pulm: clear bilaterally
Cardiac: RRR
Extremities: no edema, strength R<L UE, ambulating
Vital Signs:
Vital Signs
Temp Pulse Resp BP Pulse Ox
97.8 F 62 16 113/52 96
06/05/25 07:00 06/05/25 07:00 06/05/25 07:00 06/05/25 07:00 06/05/25 07:00
Lab Results:
Laboratory Data
WBC 14.8 10^3/uL (4.8-10.8) H 06/04/25 06:33
Hgb 12.4 g/dL (13.0-18.0) L 06/04/25 06:33
Plt Count 335 10^3/uL (130-400) 06/04/25 06:33
eGFR > 60.00 06/04/25 06:33
--- NOTE | 2025-06-05 10:26 | W.PN.HOSP.TC ---
Addendum entered and electronically signed by Gallito Snyder MD 06/05/25 11:44:
No Keppra for ppx as no seizures reported and its no indicated as per Up-To-Date and no AED mentioned in the neurology note
Original Note:
Today's Communication/Plan
-
biopsy and D/C for outpatiewnt mgmt
Assessment / Plan
Assessment / Plan
79yo M with PMHX of hypothyroidism,HTN, HLD came with weakness and spasm of R hand, found Several (approximately 4) enhancing intracranial brain masses at the ríos-white matter junctions with associated vasogenic edema, highly suspicious for
metastases and Extensive diffuse bilateral pulmonary metastatic disease and 2.5 cm mass versus focal stool at the junction of the distal descending colon and proximal sigmoid
A/P:
#Brain mets
#Lung mets
#distal descending colonic mass
Oncologist follows
Pulm consult advised [facility] for biopsy - scheduled for 06/06/25
Neurologist and NEuroSx: cont KEppra, dexamethasone, radiation oncology will plan on management upon tissue diagnosis
Neurochecks
#Leukocytosis
most likely 2/2 steroids
#essential HTN
#Hypothyroidism
cont home meds
DVT ppx lovenox
Full code
I have spent at least 35min reviewing chart, test results, communication with consultants, family and providing direct patient care
Anticipated Discharge: Within 24 hours
Subjective/Interval History
-
Date of Service: June 05, 2025
Objective Data
-
Vital Signs:
Vital Signs
Temp Pulse Resp BP Pulse Ox
97.8 F 62 16 113/52 96
06/05/25 07:00 06/05/25 07:00 06/05/25 07:00 06/05/25 07:00 06/05/25 07:00
I&O
06/04/25 06/05/25 06/06/25
06:59 06:59 06:59
Intake Total 1919
Balance 1919
Review of Systems
-
History Source: Patient
All other systems: Reviewed and negative
Physical Exam
-
General: No Apparent Distress
Neuro: Awake, Alert, Oriented and AO x 3
Psych: Calm
--- NOTE | 2025-06-05 10:39 | W.PN.PUL.V3 ---
Today's Communication / Plan
-
biopsy 06/06/25-hold Lovenox tonight and resume after procedure.
Nothing by mouth after midnight
Assessment
-
79-year-old former smoking male with a history of hypertension, hyperlipidemia, GERD presented with right upper extremity weakness and found to have suspected metastatic malignancy-pulmonary consulted for lung biopsy-bronchoscopic versus needle
biopsy 06/04/2025.
Suspected metastatic cancer-brain mets, lung mets, distal descending colonic mass
Leukocytosis
Mild normocytic anemia-hemoglobin 12.4
Hyperglycemia
Conditions present prior to admission:
Hypertension.
Hyperlipidemia.
Hypothyroid
GERD.
Former smoker
Left knee arthroplasty.
Plan
Respiratory status is currently stable-based on symptoms and radiographic review he likely has metastatic cancer
CT chest personally reviewed-numerous probable metastatic lesions-bronchoscopically likely amenable, however, multiple peripheral lesions that could be needle biopsied with probable more rapid diagnosis.
Supplemental oxygen if needed-currently on room air
Nebulizers if needed-currently not bronchospastic.
Multiple peripheral lesions there likely CT needle amenable and would recommend IR biopsy for more rapid diagnosis and subsequent treatment
Benefits and risks of bronchoscopic as well as CT needle biopsy were reviewed with patient, , and [id number] at length.
Interventional radiology consulted by Dr. Espinosa 06/04/25-biopsy tentatively scheduled for 06/06/25.
Patient will be NPO after midnight and Lovenox will be held
Dr. Espinosa, reviewed with Dr. Beatty from oncology On 06/04/25
DVT prophylaxis recommended.
Nutrition
Early mobilization
Diagnostic data:
Chest x-ray 09/13/2008-NAD
CT abdomen and pelvis/05/26-2 mm obstructing proximal left ureteral calculus, scattered hepatic calcifications suggesting granulomatous disease, 3 mm basilar right middle lobe nodule
CT head 06/02/2025-moderate area of probable vasogenic edema in the left frontal lobe due to cortical lesion
CT chest abdomen and pelvis 06/03/2025-numerous bilateral upper and lower lobe pulmonary nodules consistent with metastatic disease the largest measuring 4 cm, bilateral hilar adenopathy, right paratracheal adenopathy, 2.5 cm mass versus focal stool
junction distal descending colon and proximal sigmoid colon
MRI brain 06/03/25-1.6 cm homogeneous enhancing mass high left frontal lobe ríos-white matter junction surrounding vasogenic edema, no hemorrhage, additional 9 mm enhancing mass high posterior left parietal lobe, additional 8 mm rim-enhancing mass in
the right occipital lobe as well as a 5 mm rim-enhancing right temporoparietal lobe mass
Subjective Data
-
Date of Service:
Date of Service: June 05, 2025
Chief Complaint: Pulmonary Follow Up and Dyspnea Follow Up
Subjective:
Right arm strength improved, no complaints shortness of breath at rest, chest pain, pleurisy
Review of Systems
General: Other (per HPI)
Objective Data
Data Reviewed
Vital Signs / I&O:
Vital Signs
Temp Pulse Resp BP Pulse Ox
97.8 F 62 16 113/52 96
06/05/25 07:00 06/05/25 07:00 06/05/25 07:00 06/05/25 07:00 06/05/25 07:00
Intake and Output
06/04/25 06/05/25 06/06/25
06:59 06:59 06:59
Intake Total 1919
Balance 1919
SaO2: 96
Physical Exam
General: Respiratory Distress (n) and Comfortable
HEENT: Normocephalic, Anicteric and Moist Mucous Membranes
Cardiovascular: Regular Rhythm and Murmur
Respiratory: Wheeze (n), Crackles (n), Rhonchi (n), Non-Labored Respirations and Accessory Resp Muscle Use (n)
GI: Soft, Non Distended and Non Tender
Neurology: Awake, Alert and No Motor Deficits
Skin: Warm, Good Color, Cyanosis, Jaundice (n) and Rash (n)
Labs/Micro/Reports
Lab Data
06/04/25 06:33
06/04/25 06:33
[2025-06-05 15:00] VITALS: BP 121/61
[2025-06-05] MEDS: CRESTOR 10 MG PO (17:50)
[2025-06-05] MEDS: NON-FORMULARY ITEM 1 DROP OPHTH (20:41)
[2025-06-05 23:57] VITALS: BP 102/50
[2025-06-06] VITALS (7 sets, daily range): BP systolic 62–129; BP diastolic 52–65
--- NOTE | 2025-06-06 03:13 | DOWNTIME ---
There was a [employer] Downtime on 06/06/2025 from 0100 to 06/06/2025 at 0235. Downtime documentation of patient's care, including medication administrations, has been reconciled in the electronic record per guidelines. Refer to the
patient's paper chart under the miscellaneous tab to see printed paper medication records and downtime forms.
--- NOTE | 2025-06-06 04:53 | PTCARENOTE ---
Pt OOB --> BR. Maintained NPO for biopsy. Assesment unchanged from previous. Offers no complaints. Call blanca w/in reach, able to make needs known.
[2025-06-06] MEDS: SYNTHROID 75 MCG PO (06:39)
[2025-06-06] MEDS: CARDIZEM CD 360 MG PO (08:01)
[2025-06-06] MEDS: COZAAR 50 MG PO (08:03)
[2025-06-06] MEDS: DECADRON 2 MG PO (08:03)
[2025-06-06] MEDS: PEPCID 20 MG PO (08:03)
[2025-06-06] MEDS: ORETIC 12.5 MG PO (08:03)
[2025-06-06] MEDS: PROTONIX 40 MG PO (08:03)
[2025-06-06] MEDS: ALDACTONE 50 MG PO (08:04)
[2025-06-06 08:20] LABS: INR 1.09; PT 14.6 Sec (11.4-14.6)
--- NOTE | 2025-06-06 08:47 | W.PN.HOSP.TC ---
Today's Communication/Plan
-
for biopsy and later -DC
Assessment / Plan
Assessment / Plan
79yo M with PMHX of hypothyroidism,HTN, HLD came with weakness and spasm of R hand, found Several (approximately 4) enhancing intracranial brain masses at the ríos-white matter junctions with associated vasogenic edema, highly suspicious for
metastases and Extensive diffuse bilateral pulmonary metastatic disease and 2.5 cm mass versus focal stool at the junction of the distal descending colon and proximal sigmoid. Planned for biopsy by [facility] on 06/06/25 after which can be d/c as Oncology
arranged radiation oncology in 1 week and outpatient follow up.
A/P:
#Brain mets
#Lung mets
#distal descending colonic mass
Oncologist follows
Pulm consult advised [facility] for biopsy - scheduled for 06/06/25
Neurologist and NEuroSx: cont KEppra, dexamethasone, radiation oncology will plan on management upon tissue diagnosis
Neurochecks
#Leukocytosis
most likely 2/2 steroids
#essential HTN
#Hypothyroidism
cont home meds
DVT ppx lovenox
Full code
I have spent at least 35min reviewing chart, test results, communication with consultants, family and providing direct patient care
Anticipated Discharge: Within 24 hours
Subjective/Interval History
-
Date of Service: June 06, 2025
Objective Data
-
Labs:
Laboratory Results
06/06/25
07:49
PT 14.6
INR 1.09
Vital Signs:
Vital Signs
Temp Pulse Resp BP Pulse Ox
97.6 F 58 18 120/65 95
06/06/25 07:00 06/06/25 07:00 06/06/25 07:00 06/06/25 07:00 06/06/25 07:00
I&O
06/05/25 06/06/25 06/07/25
06:59 06:59 06:59
Intake Total 1919 700 / 700
Balance 1919 700
Review of Systems
-
History Source: Patient
All other systems: Reviewed and negative
Physical Exam
-
General: No Apparent Distress
Skin: Warm
Neuro: Awake, Alert, Oriented and No Motor Deficits
Psych: Calm
--- NOTE | 2025-06-06 10:25 | W.PN.PUL.V3 ---
Today's Communication / Plan
-
stable for biopsy.
Reviewed with at length
Assessment
-
79-year-old former smoking male with a history of hypertension, hyperlipidemia, GERD presented with right upper extremity weakness and found to have suspected metastatic malignancy-pulmonary consulted for lung biopsy-bronchoscopic versus needle
biopsy 06/04/2025.
Suspected metastatic cancer-brain mets, lung mets, distal descending colonic mass
Status post CT needle biopsy right upper lobe mass 06/06/25-results pending
Leukocytosis
Mild normocytic anemia-hemoglobin 12.4
Hyperglycemia
Conditions present prior to admission:
Hypertension.
Hyperlipidemia.
Hypothyroid
GERD.
Former smoker
Left knee arthroplasty.
Plan
Respiratory status is currently stable-based on symptoms and radiographic review he likely has metastatic cancer
CT chest personally reviewed-numerous probable metastatic lesions-bronchoscopically likely amenable, however, multiple peripheral lesions that could be needle biopsied with probable more rapid diagnosis.
Supplemental oxygen if needed-currently on room air
Nebulizers if needed-currently not bronchospastic.
Multiple peripheral lesions there likely CT needle amenable and Recommended IR biopsy for more rapid diagnosis and subsequent treatment
Benefits and risks of bronchoscopic as well as CT needle biopsy were reviewed with patient, , and [id number] at length.
Interventional radiology consulted by Dr. Espinosa 06/04/25-biopsy- scheduled for 06/06/25.
Dr. Espinosa, reviewed with Dr. Beatty from oncology On 06/04/25
DVT prophylaxis recommended.
Nutrition
Early mobilization
Diagnostic data:
Chest x-ray 09/13/2008-NAD
CT abdomen and pelvis/05/26-2 mm obstructing proximal left ureteral calculus, scattered hepatic calcifications suggesting granulomatous disease, 3 mm basilar right middle lobe nodule
CT head 06/02/2025-moderate area of probable vasogenic edema in the left frontal lobe due to cortical lesion
CT chest abdomen and pelvis 06/03/2025-numerous bilateral upper and lower lobe pulmonary nodules consistent with metastatic disease the largest measuring 4 cm, bilateral hilar adenopathy, right paratracheal adenopathy, 2.5 cm mass versus focal stool
junction distal descending colon and proximal sigmoid colon
MRI brain 06/03/25-1.6 cm homogeneous enhancing mass high left frontal lobe ríos-white matter junction surrounding vasogenic edema, no hemorrhage, additional 9 mm enhancing mass high posterior left parietal lobe, additional 8 mm rim-enhancing mass in
the right occipital lobe as well as a 5 mm rim-enhancing right temporoparietal lobe mass
Subjective Data
-
Date of Service:
Date of Service: June 06, 2025
Chief Complaint: Pulmonary Follow Up and Dyspnea Follow Up
Subjective:
Strength improved in the right hand, no complaints shortness of breath, chest pain, chest tightness, productive cough, or abdominal pain
Review of Systems
General: Other (per HPI)
Objective Data
Data Reviewed
Vital Signs / I&O:
Vital Signs
Temp Pulse Resp BP Pulse Ox
97.6 F 58 18 120/65 95
06/06/25 07:00 06/06/25 07:00 06/06/25 07:00 06/06/25 07:00 06/06/25 07:00
Intake and Output
06/05/25 06/06/25 06/07/25
06:59 06:59 06:59
Intake Total 1919 700 / 700
Balance 1919 700 / 700
SaO2: 95
Physical Exam
General: Respiratory Distress (n) and Comfortable
HEENT: Normocephalic, Anicteric and Moist Mucous Membranes
Cardiovascular: Regular Rhythm and Murmur
Respiratory: Wheeze (n), Crackles (n), Rhonchi (n), Non-Labored Respirations and Accessory Resp Muscle Use (n)
GI: Soft, Non Distended and Non Tender
Neurology: Awake, Alert and No Motor Deficits
Skin: Warm, Good Color, Cyanosis, Jaundice (n) and Rash (n)
Labs/Micro/Reports
Lab Data
06/04/25 06:33
06/04/25 06:33
Laboratory Results
06/06/25
07:49
PT 14.6
INR 1.09
--- NOTE | 2025-06-06 13:19 | W.DCSUMMARY ---
Discharge Summary
Discharge Data
Date of Admission: 06/03/25
Date of Discharge: 06/06/25
-
Pending Results: No
Hospital Course
79yo M with PMHX of hypothyroidism,HTN, HLD came with weakness and spasm of R hand, found Several (approximately 4) enhancing intracranial brain masses at the ríos-white matter junctions with associated vasogenic edema, highly suspicious for
metastases and Extensive diffuse bilateral pulmonary metastatic disease and 2.5 cm mass versus focal stool at the junction of the distal descending colon and proximal sigmoid. Planned for biopsy by [facility] on 06/06/25 after which can be d/c as Oncology
arranged radiation oncology in 1 week and outpatient follow up. Serial chest XR showed no post-procedural complications such as pneumothorax/hemothorax
Neurological symptoms completely resolved on the day of discharge, probably 2/2 steroids, that patient will continue on. Keppra not indicated and was not recommended by Neurologist with no Hx of seizures
I have spent at least 36min reviewing chart, test results, communication with consultants, family and providing direct patient care
Patient was managed for:
#Brain mets
#Lung mets
#distal descending colonic mass
#Leukocytosis
#essential HTN
#Hypothyroidism
Discharge Plan
-
Patient Disposition: Home (Routine Discharge)
Discharge Diagnosis/Procedures: metastatic cancer
Diet: Regular
Activity: As tolerated
Driving Restrictions: No driving
Referrals:
Allan Diana DO [Active, Hematology / Oncology] - in one to two weeks
Rosa Delgado MD [Family Provider, Internal Medicine]
Prescriptions:
New
dexamethasone 2 mg Tablet
2 mg PO Q12 Qty: 30 0RF
pantoprazole 40 mg Tablet,Delayed Release (Dr/Ec)
40 mg PO DAILY Qty: 30 0RF
Continued
diltiazem HCl 360 mg capsule,extended release 24hr
360 mg PO DAILY
famotidine 20 mg tablet
20 mg DAILY
losartan 50 mg Tablet
50 mg PO BID
hydrochlorothiazide
25 mg PO DAILY
rosuvastatin
10 mg PO HS
spironolactone
50 mg PO DAILY
levothyroxine
75 mcg PO DAILY
travoprost 0.004 % Drops
1 drp RIGHT EYE Q48H
Discharge Orders:
Discharge Patient (As Directed); Ordered 06/06/25
Ordered By: Gallito Snyder
Discharge Date and Time
Print Language: HONDURAN
[2025-06-06 13:28] LABS: Glucose - Point of Care 211 mg/dl (70-99)
--- NOTE | 2025-06-06 15:27 | CM ---
Spoke with patient and family in room post Biopsy RLL.
Family said they are waiting to speak with MD.
Offered VN he declined need.
Family will drive him home at discharge.
IMM reviewed signed on chart.
PLAN Home no needs
== END 2025-06-06 16:45 | disposition home or self-care (01) | DRG 54 ==
LOC: 3 WEST ACU 01:40
PROVIDERS: Internal Medicine; Radiology Vascular & Interventional Radiology; ADMITTING PHYSICIAN Internal Medicine; ATTENDING PHYSICIAN Internal Medicine; CONSULT PHYSICIAN Internal Medicine Critical Care Medicine; CONSULT PHYSICIAN Psychiatry & Neurology Clinical Neurophysiology; EMERGENCY PHYSICIAN Emergency Medicine; FAMILY PHYSICIAN Internal Medicine; OTHER PHYSICIAN Internal Medicine Hematology & Oncology
PROC: 0BBC3ZX Excision of Right Upper Lung Lobe, Percutaneous Approach, Diagnostic (ICD-10-PCS; 2025-06-06)
DX: C79.31 Secondary malignant neoplasm of brain (principal); G93.6 Cerebral edema; C78.01 Secondary malignant neoplasm of right lung; E78.00 Pure hypercholesterolemia, unspecified; E03.9 Hypothyroidism, unspecified; I10 Essential (primary) hypertension; K63.89 Other specified diseases of intestine; K21.9 Gastro-esophageal reflux disease without esophagitis; R10.13 Epigastric pain; R91.1 Solitary pulmonary nodule; D63.0 Anemia in neoplastic disease; R73.9 Hyperglycemia, unspecified; C80.1 Malignant (primary) neoplasm, unspecified; Z79.899 Other long term (current) drug therapy; Z87.891 Personal history of nicotine dependence
CPT/HCPCS: 32408; 70450; 70553; 71045; 71046; 71260; 74177; 80048; 80053; 81459; 82962; 83735; 85025; 85027; 85610; 88305; 88333; 88341; 88342; 99152; 99153; 99285; A9575; C2613; Q9967

== ENCOUNTER → 2025-06-08 08:51 | Outpatient (REF) | payer OTHER, SELFPAY | LOC: RCS 08:51 | PROVIDERS: ATTENDING PHYSICIAN Nurse Practitioner; FAMILY PHYSICIAN Internal Medicine | DX: I77.810 Thoracic aortic ectasia (principal); R06.02 Shortness of breath | CPT/HCPCS: 93306 ==

== ENCOUNTER 2025-06-13 16:58 | Emergency (ER) | payer OTHER, SELFPAY ==
[2025-06-13 17:10] VITALS: BP 130/65
[2025-06-13 17:25] LABS: Glucose - Point of Care 319 mg/dl (70-99)
[2025-06-13 18:10] LABS: ALT (SGPT) 24 U/L (0-50); AST (SGOT) 14 U/L (17-59); Albumin 4.1 g/dl (3.5-5.0); Alkaline Phosphatase 78 U/L (38-126); Blood Urea Nitrogen 59 mg/dl (9-20); Calcium 9.5 mg/dl (8.4-10.2); Carbon Dioxide 17 mmol/L (22-30); Chloride 98 mmol/L (98-107); Glucose 307 mg/dl (70-99); Potassium 5.9 mmol/L (3.5-5.1); Sodium 125 mmol/L (135-145); Total Protein 6.7 g/dl (6.3-8.2); eGFR 55.53
[2025-06-13 18:18] LABS: Hematocrit 38.7 % (39.0-52.0); Hemoglobin 13.4 g/dL (13.0-18.0); Mean Corp Hgb Conc. 34.6 g/dL (33.0-37.0); Mean Corpuscular Volume 87.0 fL (80.0-94.0); Platelet Count 341 10^3/uL (130-400); Red Cell Dist. Width 12.3 % (11.5-14.5)
[2025-06-13 18:54] LABS: Nucleated Red Blood Cells % 0 % (-)
--- NOTE | 2025-06-13 19:42 | ED.GENMED ---
History of Present Illness
General
Chief Complaint: Abnormal Lab Value
Time Seen by Provider: 06/13/25 19:19
History of Present Illness
History of Present Illness:
79-year-old male with history of brain metastasis, hypertension and hyperlipidemia presents to the emergency department for evaluation of abnormal labs and a reportedly abnormal EKG. He was at a neurosurgical office visit today where he was noted
to have elevated glucose and low sodium. Of note he is on steroids currently due to recent diagnosed brain metastases and is scheduled for gamma knife surgery on June 19. He also notes that he has been constipated and eating large amounts of
dried prunes recently. He does report polyuria and polydipsia but denies any abdominal pain, nausea, or vomiting. No prior history of diabetes but does note he has had a history of steroid-induced hyperglycemia in the past. Currently on 2mg BID
decadron
Past History
Past History
ED Past Medical History: HTN, Hypercholesterolemia, Hypothyroidism and Other (Lumbar disc disease, impaired fasting glucose)
ED Past Surgical History: Orthopedic (Hip replacement)
Social History
Tobacco: Non-smoker
Alcohol: None
Personal:
Living: with family
Employment: Retired
Family History
Family History: Other (Noncontributory)
Review of Systems
Review of Systems
Allergies reviewed?: Yes
All Other Systems: ROS reviewed and negative except as documented in HPI and ROS
Phy Exam
Physical Exam
Physical Exam:
GEN: Well appearing, NAD, WDWN
HEENT: Oral mucosa moist, no scleral icterus
Cardiac: Regular rate
Lung: No respiratory distress, no tachypnea
MSK: No gross deformity or injuries
Skin: Good color, no pallor or jaundice, no rashes
Neuro: AO x3, moves all extremities freely
Psych: Calm, cooperative
Course
Orders/Labs/Results
Orders:
Orders
06/13/25 17:16
Electrocardiogram (*1) Urgent
Reason for Study: Abnormal EKG
EKG- Treatment ONCE
06/13/25 17:22
Complete Blood Count/With Diff Urgent
Comprehensive Metabolic Panel Urgent
Magnesium Urgent
Comment: ADD ON
Serum Osmolality Urgent
Comment: ADD ON
06/13/25 19:29
Add On- LAB Urgent
Tests Added?: serum osmolality, magnesium
06/13/25 19:39
0.9% Sodium Chloride 1000 ml [Nss] 1,000 ml IV BOLUS
06/13/25 19:54
Acetone [B-Hydroxybutyrate] Urgent
Venous Blood Gas Urgent
%Oxygen/Room Air: 97
06/13/25 21:10
Urinalysis Reflex To Culture Urgent
Date Specimen was Collected: 06/13/25
Time Specimen was Collected: 20:16
06/13/25 21:39
Bedside Glucose- Treatment ONCE
0.9% Sodium Chloride 1000 ml [Nss] 1,000 ml IV BOLUS
Insulin Aspart [NOVOLOG vial] 5 units SC NOW STA
Sodium Zirconium Cyclosilicate [Lokelma] 10 gram PO NOW STA
Abnormal Lab Results
06/13/25 06/13/25 06/13/25
17:22 17:24 19:54
WBC 29.3 H 10^3/uL
(4.8-10.8)
RBC 4.45 L 10^6/uL
(4.70-6.10)
Hct 38.7 L %
(39.0-52.0)
MPV 11.3 H fL
(7.4-10.4)
Abs Immat Gran (auto) 1.3 H 10^3/uL
(0-0.05)
Absolute Neuts (auto) 23.1 H 10^3/uL
(1.4-6.5)
Absolute Monos (auto) 2.0 H 10^3/uL
(0.1-0.6)
Immature Gran % 4.4 H %
(0-0.5)
Neutrophils % 78.8 H %
(42.2-75.2)
Lymphocytes % 9.5 L %
(20.5-51.1)
VBG pCO2 29 L mmHg
(35-48)
VBG pO2 93 H mmHg
(30-50)
VBG HCO3 16.0 L mmol/L
(22-27)
Sodium 125 L mmol/L
(135-145)
Potassium 5.9 H mmol/L
(3.5-5.1)
Carbon Dioxide 17 L mmol/L
(22-30)
BUN 59 H mg/dl
(-20)
Glucose 307 H mg/dl
(-99)
AST 14 L U/L
(17-59)
Urine Glucose
POC Glucose 319 H mg/dl
(70-99)
06/13/25 06/13/25 06/13/25
21:10 21:50 22:58
WBC
RBC
Hct
MPV
Abs Immat Gran (auto)
Absolute Neuts (auto)
Absolute Monos (auto)
Immature Gran %
Neutrophils %
Lymphocytes %
VBG pCO2
VBG pO2
VBG HCO3
Sodium
Potassium
Carbon Dioxide
BUN
Glucose
AST
Urine Glucose 2+ A
(Negative)
POC Glucose 249 H mg/dl 234 H mg/dl
(70-99) (70-99)
06/13/25 17:22
06/13/25 17:22
Vital Signs
Initial and Last Documented VS:
Initial Vital Signs
Temp Pulse Resp BP Pulse Ox
97.5 F 72 18 130/65 97
06/13/25 17:10 06/13/25 17:10 06/13/25 17:10 06/13/25 17:10 06/13/25 17:10
Last Documented Vital Signs
Temp Pulse Resp BP Pulse Ox
97.5 F 60 17 127/65 98
06/13/25 17:10 06/13/25 22:30 06/13/25 22:30 06/13/25 22:00 06/13/25 22:30
MDM/Problems Addressed
MDM/Problems Addressed:
Patient is hyperglycemic with mild pseudohyponatremia however no evidence for DKA. He is clinically well-appearing and does not desire to be admitted to the hospital. Treated with IV fluids, initially plan to give insulin however fluids caused a
significant improvement in his blood sugar alone. He was given Lokelma for his elevated potassium but I suspect hydration will improve this as well. Will hold his losartan to avoid further hyperkalemia. Outpatient BMP order written for Wednesday, he
will follow-up with his primary care physician tomorrow as well as oncology on Wednesday
*Pulse Oximetry
SaO2: 97
Oxygen Mode of Delivery: Room air
Patient hypoxic: no
*Critical Care Note
Total Time (30-74mins, 75-104mins- exclusive of procedures): Not Applicable
ED Attending Note
-
Portions of this chart may have been created with voice recognition software.� Occasional wrong word or��sound alike� substitutions may have occurred due to the inherent limitations of voice recognition software.
Discharge Plan
Departure
Patient Disposition: Home (Routine Discharge)
Date of Disposition: 06/13/25
Time of Disposition: 22:46
Patient with high blood pressure during this ER visit?: No
Discharge Problem:
Steroid-induced hyperglycemia, Acute hyperkalemia
Instructions: Hyperkalemia (DC)
Prescriptions:
No Action
diltiazem HCl 360 mg capsule,extended release 24hr
360 mg PO DAILY
famotidine 20 mg tablet
20 mg DAILY
losartan 50 mg Tablet
50 mg PO BID
hydrochlorothiazide
25 mg PO DAILY
rosuvastatin
10 mg PO HS
spironolactone
50 mg PO DAILY
levothyroxine
75 mcg PO DAILY
travoprost 0.004 % Drops
1 drp RIGHT EYE Q48H
dexamethasone 2 mg Tablet
2 mg PO Q12 Qty: 30 0RF
pantoprazole 40 mg Tablet,Delayed Release (Dr/Ec)
40 mg PO DAILY Qty: 30 0RF
Referrals:
Rosa Delgado MD [Family Provider, Internal Medicine]
Activity Restrictions/Additional Instructions:
Decrease your steroid dosage to 1 mg twice daily for 2 mg once daily
Do not take your losartan tonight or tomorrow morning, you may resume tomorrow night
Have your blood work rechecked on Wednesday to reassess your potassium level and sugar
Ask your primary care physician to check your sugar by fingerstick in the office tomorrow
Follow-up with your primary care physician and oncologist as planned
If you are feeling warm neurologic symptoms such as extremity weakness getting worse with the reduced steroids contact your neurosurgeon as soon as possible
Interventions
Interventions:
*Risk Screen - Suicide Last Done: 06/13/25 17:16
*General Assessment Last Done: 06/13/25 17:16
*Neglect/Abuse Screening Last Done: 06/13/25 17:16
*ED- Fall Risk Assessment Last Done: 06/13/25 20:03
*ED COVID-19 Vaccine History Last Done: 06/13/25 17:16
Discharge Date and Time
Print Language: GREENLANDIC
[2025-06-13 19:56] VITALS: BP 127/104
[2025-06-13] MEDS: NSS 1000 IV ×2 (19:57→21:55)
[2025-06-13 20:00] VITALS: BP 134/68
[2025-06-13 20:04] LABS: Venous Blood Gas B.E. -8.2 mmol/L (-4 to +4); Venous Blood Gas O2 Sat % 98.6 %
[2025-06-13 20:07] LABS: Magnesium 2.0 mg/dl (1.6-2.3)
[2025-06-13 21:10] VITALS: BP 124/60
[2025-06-13 21:23] LABS: Urine Character Clear (Clear)
[2025-06-13 21:51] LABS: Glucose - Point of Care 249 mg/dl (70-99)
[2025-06-13] MEDS: LOKELMA 10 GRAM PO (21:55)
[2025-06-13 22:00] VITALS: BP 127/65
[2025-06-13 23:00] LABS: Glucose - Point of Care 234 mg/dl (70-99)
== END 2025-06-13 23:15 | disposition home or self-care (01) ==
LOC: EMR 16:58
PROVIDERS: Emergency Medicine; Physician Assistant; EMERGENCY PHYSICIAN Student in an Organized Health Care Education/Training Program; FAMILY PHYSICIAN Internal Medicine
DX: R73.9 Hyperglycemia, unspecified (principal); T38.0X5A Adverse effect of glucocorticoids and synthetic analogues, initial encounter; E87.5 Hyperkalemia; C79.31 Secondary malignant neoplasm of brain; I10 Essential (primary) hypertension; E78.00 Pure hypercholesterolemia, unspecified; E03.9 Hypothyroidism, unspecified; M51.369 Other intervertebral disc degeneration, lumbar region without mention of lumbar back pain or lower extremity pain; Z96.649 Presence of unspecified artificial hip joint
CPT/HCPCS: 99284; 96360; 96361; 80053; 81003; 82010; 82805; 82962; 83735; 83930; 85025; 93005

== ENCOUNTER → 2025-06-15 09:08 | Outpatient (REF) | payer OTHER, SELFPAY ==
[2025-06-15 09:57] LABS: Hematocrit 41.9 % (39.0-52.0); Hemoglobin 14.1 g/dL (13.0-18.0); Mean Corp Hgb Conc. 33.7 g/dL (33.0-37.0); Mean Corpuscular Volume 88.6 fL (80.0-94.0); Nucleated Red Blood Cells % 0 % (-); Platelet Count 304 10^3/uL (130-400); Red Cell Dist. Width 12.5 % (11.5-14.5)
[2025-06-15 10:29] LABS: ALT (SGPT) 29 U/L (0-50); AST (SGOT) 15 U/L (17-59); Albumin 4.3 g/dl (3.5-5.0); Alkaline Phosphatase 54 U/L (38-126); Blood Urea Nitrogen 42 mg/dl (9-20); Calcium 9.6 mg/dl (8.4-10.2); Carbon Dioxide 23 mmol/L (22-30); Chloride 98 mmol/L (98-107); Glucose 184 mg/dl (70-99); Potassium 5.5 mmol/L (3.5-5.1); Sodium 130 mmol/L (135-145); Total Protein 6.8 g/dl (6.3-8.2); eGFR > 60.00
[2025-06-15 11:01] LABS: TSH 3.28 uIU/ml (0.47-4.68)
== END ==
LOC: REG 09:08
PROVIDERS: FAMILY PHYSICIAN Internal Medicine; OTHER PHYSICIAN Internal Medicine Hematology & Oncology
DX: D72.820 Lymphocytosis (symptomatic) (principal); D72.829 Elevated white blood cell count, unspecified; C79.31 Secondary malignant neoplasm of brain; C34.11 Malignant neoplasm of upper lobe, right bronchus or lung
CPT/HCPCS: 36415; 80053; 84443; 85025

== ENCOUNTER 2025-07-03 17:03 | Emergency (ER) | payer OTHER, SELFPAY ==
[2025-07-03 17:17] VITALS: BP 113/65
[2025-07-03 17:46] LABS: Hematocrit 34.7 % (39.0-52.0); Hemoglobin 12.1 g/dL (13.0-18.0); Mean Corp Hgb Conc. 34.9 g/dL (33.0-37.0); Mean Corpuscular Volume 85.3 fL (80.0-94.0); Nucleated Red Blood Cells % 0 % (-); Platelet Count 201 10^3/uL (130-400); Red Cell Dist. Width 13.7 % (11.5-14.5)
[2025-07-03 17:55] LABS: ALT (SGPT) 26 U/L (0-50); AST (SGOT) 16 U/L (17-59); Albumin 3.7 g/dl (3.5-5.0); Alkaline Phosphatase 60 U/L (38-126); Blood Urea Nitrogen 40 mg/dl (9-20); Calcium 9.3 mg/dl (8.4-10.2); Carbon Dioxide 16 mmol/L (22-30); Glucose 232 mg/dl (70-99); Total Protein 6.1 g/dl (6.3-8.2); eGFR > 60.00
[2025-07-03 18:11] LABS: Chloride 101 mmol/L (98-107); Potassium 4.5 mmol/L (3.5-5.1); Sodium 127 mmol/L (135-145)
[2025-07-03 19:08] VITALS: BP 115/69
--- NOTE | 2025-07-03 19:14 | ED.GENMED ---
History of Present Illness
General
Chief Complaint: Fever
Source: patient and family
Exam Limitations: none
Time Seen by Provider: 07/03/25 19:03
Nursing documentation reviewed up to this point in time: agreed with
History of Present Illness
History of Present Illness:
Note:
CHIEF COMPLAINT(S)
Fever and cough.
HISTORY OF PRESENT ILLNESS
The patient is an 80-year-old male with a history of lung cancer, presenting with a fever and cough. The fever onset was at 3 PM, with a temperature reaching 102�F. The patient is not currently undergoing chemotherapy but was recently on steroids as
part of a treatment regimen started last . The patient reported a significant history of lung cancer diagnosed in May after experiencing weakness in the right arm over a three-week period. Crackles were noted on auscultation of the left
lung, raising concerns about possible pneumonia. The patient is awaiting further diagnostic imaging to determine the cause of the symptoms.
PAST MEDICAL AND SURGICAL HISTORY
The patient has a known history of lung cancer.
CHRONIC MEDICAL CONDITIONS SIGNIFICANTLY AFFECTING CARE
Lung cancer, currently managed with a recent steroid regimen.
REVIEW OF SYSTEMS
- Respiratory: Cough, crackles observed on the left side of the chest.
- General: Fever with a temperature recorded at 102�F.
PHYSICAL EXAM
General: Alert, no acute distress.
Skin: Warm, dry.
Head: Normocephalic, atraumatic.
Neck: Supple, trachea midline.
Eye, Ears, Nose, Mouth, and Throat: Oral mucosa moist.
Cardiovascular: Normal peripheral perfusion, no edema.
Respiratory: Crackles observed on the left side.
Gastrointestinal: Abdomen nondistended.
Back: Normal range of motion, normal alignment.
Musculoskeletal: Normal range of motion, normal strength.
Neurological: Alert and oriented to person, place, time, and situation, no focal neurological deficit observed.
Psychiatric: Cooperative, appropriate mood & affect.
PLAN
- Perform a chest X-ray to assess possible pneumonia.
- Swabs for COVID-19 and influenza due to their commonality with such symptoms.
- Monitor the patient�s temperature and continue to assess comfort.
DIFFERENTIAL DIAGNOSIS
The Differential Diagnosis includes, in no particular order and is not limited to:
1. Pneumonia
2. Chronic Obstructive Pulmonary Disease exacerbation
3. Acute bronchitis
4. Pulmonary embolism
5. COVID-19 infection
6. Influenza
7. Acute respiratory distress syndrome
8. Lung cancer progression or metastasis
9. Foreign body aspiration
10. Congestive heart failure
SUMMARY OF ENCOUNTER
The patient, an 80-year-old male with a history of lung cancer, presented to the emergency department with complaints of fever and cough. The patient exhibited crackles on the left lung during auscultation, and a chest X-ray was performed to rule
out pneumonia. Swabs for COVID-19 and influenza were considered. The patient was assessed to ensure no presence of pneumonia, and symptoms confirmed bronchitis. Given the stable condition and self-administering of medication, the patient was deemed
stable for discharge.
DISPOSITION
Discharge
PLAN
- Discharge with family court counsellor to follow up with oncology and primary care for ongoing care and management.
- Return precautions were provided to the patient.
- No antibiotics were indicated due to the current presentation and assessment.
INDEPENDENT REVIEW OF LABS AND INTERPRETATION OF TESTS
- My independent interpretation of the chest x-ray shows no signs of pneumonia, consistent with the patients clinical presentation.
PATIENT EDUCATION AND COUNSELING
- The patient was educated on managing symptoms and advised regarding the significance of follow-ups with his primary care physician and oncology. Emphasis was placed on understanding return precautions.
FOLLOW-UP INSTRUCTIONS
- The patient was advised to follow up with oncology and primary care for continued management of his lung cancer and associated symptoms.
MEDICAL DECISION MAKING
- Complexity of Data Reviewed: Chronic conditions affecting care, including lung cancer.
- Differential Diagnosis: Pneumonia, Chronic Obstructive Pulmonary Disease exacerbation, Acute bronchitis, Pulmonary embolism, COVID-19 infection, Influenza, Acute respiratory distress syndrome, Lung cancer progression or metastasis, Foreign body
aspiration, Congestive heart failure.
- Data:
- Category 1: Testing indicated that the chest X-ray was performed and returned no signs of pneumonia.
- Category 3: Discussion with the patient regarding discharge and need for follow-up care.
- Risk:
- Prescription medication was not prescribed as no antibiotics were deemed necessary.
- Consideration of Admission/Observation: Escalation of care, including admission/observation, was considered given the complexity and risk of the patients presenting complaint, exam findings, and their underlying comorbidities. However, ultimately,
I felt the patient was safe for outpatient management with close follow-up. Reasoning: Work-up was reassuring and did not reveal any acute life/organ-threatening processes, symptoms well-controlled upon reevaluation, and the patient was agreeable
with discharge and reliable for follow-up.
DIAGNOSIS
- Bronchitis (ICD-10 J20.9)
- Fever (ICD-10 R50.9)
- Cough (ICD-10 R05)
- Lung Cancer (ICD-10 C34.90)
Past History
Past History
ED Past Medical History: HTN, Hypercholesterolemia, Hypothyroidism and Other (Lumbar disc disease, impaired fasting glucose)
ED Past Surgical History: Orthopedic (Hip replacement)
Social History
Tobacco: Non-smoker
Alcohol: None
Personal:
Living: with family
Employment: Retired
Family History
Family History: Other (Noncontributory)
Phy Exam
Physical Exam
Physical Exam:
.
Sepsis
Sepsis Screening
Sepsis Assessment: Sepsis Ruled Out
Sepsis Screen
Sepsis Screen: Sepsis Ruled Out
Date: 07/04/25
Time: 03:17
Course
Orders/Labs/Results
Orders:
Orders
07/03/25 17:23
Electrocardiogram (*1) Urgent
Reason for Study: Tachycardia
EKG- Treatment ONCE
07/03/25 17:25
CMP [Comprehensive Metabolic Panel] Urgent
Complete Blood Count/With Diff Urgent
07/03/25 19:13
CR Chest - 2 Views Urgent
Comment:
Reason For Exam: fever, cough
Abnormal Lab Results
07/03/25
17:25
WBC 12.8 H 10^3/uL
(4.8-10.8)
RBC 4.07 L 10^6/uL
(4.70-6.10)
Hgb 12.1 L g/dL
(13.0-18.0)
Hct 34.7 L %
(39.0-52.0)
Abs Immat Gran (auto) 0.1 H 10^3/uL
(0-0.05)
Absolute Neuts (auto) 9.1 H 10^3/uL
(1.4-6.5)
Absolute Monos (auto) 0.9 H 10^3/uL
(0.1-0.6)
Immature Gran % 1.1 H %
(0-0.5)
Lymphocytes % 17.8 L %
(20.5-51.1)
Sodium 127 L mmol/L
(135-145)
Carbon Dioxide 16 L mmol/L
(22-30)
BUN 40 H mg/dl
(9-20)
Glucose 232 H mg/dl
(70-99)
AST 16 L U/L
(17-59)
Total Protein 6.1 L g/dl
(6.3-8.2)
07/03/25 17:25
07/03/25 17:25
Vital Signs
Initial and Last Documented VS:
Initial Vital Signs
Temp Pulse Resp BP Pulse Ox
98.7 F 115 20 113/65 96
07/03/25 17:17 07/03/25 17:17 07/03/25 17:17 07/03/25 17:17 07/03/25 17:17
Last Documented Vital Signs
Temp Pulse Resp BP Pulse Ox
98.5 F 77 28 115/65 93
07/03/25 21:52 07/03/25 21:52 07/03/25 21:52 07/03/25 21:52 07/03/25 21:52
*Pulse Oximetry
SaO2: 96
Oxygen Mode of Delivery: Room air
Patient hypoxic: no
*Critical Care Note
Total Time (30-74mins, 75-104mins- exclusive of procedures): Not Applicable
ED Attending Note
-
Portions of this chart may have been created with voice recognition software.� Occasional wrong word or��sound alike� substitutions may have occurred due to the inherent limitations of voice recognition software.
Discharge Plan
Departure
Patient Disposition: Home (Routine Discharge)
Date of Disposition: 07/03/25
Time of Disposition: 21:34
Patient with high blood pressure during this ER visit?: Yes
Condition: Good
Discharge Problem:
Acute bronchitis, Fever
Instructions: Fever, Adult (DC), Bronchitis in adults - ED (DC), BLOOD PRESSURE
Prescriptions:
No Action
diltiazem HCl 360 mg capsule,extended release 24hr
360 mg PO DAILY
famotidine 20 mg tablet
20 mg DAILY
losartan 50 mg Tablet
50 mg PO BID
hydrochlorothiazide
25 mg PO DAILY
rosuvastatin
10 mg PO HS
spironolactone
50 mg PO DAILY
levothyroxine
75 mcg PO DAILY
travoprost 0.004 % Drops
1 drp RIGHT EYE Q48H
dexamethasone 2 mg Tablet
2 mg PO Q12 Qty: 30 0RF
pantoprazole 40 mg Tablet,Delayed Release (Dr/Ec)
40 mg PO DAILY Qty: 30 0RF
Referrals:
Rosa Delgado MD [Family Provider, Internal Medicine]
Interventions
Interventions:
*Risk Screen - Suicide Last Done: 07/03/25 20:51
*General Assessment Last Done: 07/03/25 20:52
*Neglect/Abuse Screening Last Done: 07/03/25 20:51
*ED- Fall Risk Assessment Last Done: 07/03/25 20:51
*ED COVID-19 Vaccine History Last Done: 07/03/25 20:51
*Nursing Disposition Last Done: 07/03/25 21:52
ED- Neurological Assessment Last Done: 07/03/25 20:02
ED-Skin Assessment Last Done: 07/03/25 20:02
Discharge Date and Time
Discharge Date/Time: 07/03/25 21:53
Print Language: PASHTO
[2025-07-03 21:51] VITALS: BP 115/65
[2025-07-03 21:52] VITALS: BP 115/65
== END 2025-07-03 21:53 | disposition home or self-care (01) ==
LOC: EMR 17:03
PROVIDERS: Physician Assistant Medical; EMERGENCY PHYSICIAN Emergency Medicine; FAMILY PHYSICIAN Internal Medicine
DX: J20.9 Acute bronchitis, unspecified (principal); C34.90 Malignant neoplasm of unspecified part of unspecified bronchus or lung; E78.00 Pure hypercholesterolemia, unspecified; I10 Essential (primary) hypertension; E03.9 Hypothyroidism, unspecified
CPT/HCPCS: 99285; 71046; 80053; 85025; 93005

== ENCOUNTER → 2025-07-05 08:50 | Outpatient (REF) | payer OTHER, SELFPAY ==
[2025-07-05 08:41] LABS: Glucose 151 mg/dl (70-99)
[2025-07-05 20:52] LABS: ALT (SGPT) 26 U/L (0-50); AST (SGOT) 19 U/L (17-59); Albumin 3.5 g/dl (3.5-5.0); Alkaline Phosphatase 49 U/L (38-126); Blood Urea Nitrogen 35 mg/dl (9-20); Calcium 8.9 mg/dl (8.4-10.2); Carbon Dioxide 17 mmol/L (22-30); Chloride 102 mmol/L (98-107); Glucose 153 mg/dl (70-99); Potassium 4.3 mmol/L (3.5-5.1); Sodium 128 mmol/L (135-145); Total Protein 5.9 g/dl (6.3-8.2); eGFR > 60.00
[2025-07-05 21:09] LABS: Free T3 2.64 pg/ml (2.77-5.27)
[2025-07-05 21:23] LABS: TSH 4.96 uIU/ml (0.47-4.68)
== END ==
LOC: PET 08:50
PROVIDERS: ATTENDING PHYSICIAN Internal Medicine Hematology & Oncology; FAMILY PHYSICIAN Internal Medicine
DX: C34.11 Malignant neoplasm of upper lobe, right bronchus or lung (principal); D72.820 Lymphocytosis (symptomatic); D72.829 Elevated white blood cell count, unspecified; C79.31 Secondary malignant neoplasm of brain
CPT/HCPCS: 36415; 78815; 80053; 82947; 84439; 84443; 84481; 85025; A9552

== ENCOUNTER 2025-07-05 21:17 | Inpatient (IN) | payer OTHER, SELFPAY ==
[2025-07-05] VITALS (9 sets, daily range): BP systolic 94–124; BP diastolic 54–62; BMI 27.2; BMI 27.1
--- NOTE | 2025-07-05 16:31 | PTCARENOTE ---
patients daughter reports [employer], patient had an episode where he stopped responding and his eyes rolled backwards, his daughter and then threw water on him and he returned back to normal mentation. daughter then called 911. daughter states today
patient has been 'sleepier' than usual.
[2025-07-05 16:49] LABS: Hematocrit 32.8 % (39.0-52.0); Hemoglobin 11.3 g/dL (13.0-18.0); Mean Corp Hgb Conc. 34.5 g/dL (33.0-37.0); Mean Corpuscular Volume 86.5 fL (80.0-94.0); Nucleated Red Blood Cells % 0 % (-); Platelet Count 203 10^3/uL (130-400); Red Cell Dist. Width 14.1 % (11.5-14.5)
[2025-07-05 17:02] LABS: ALT (SGPT) 27 U/L (0-50); AST (SGOT) 22 U/L (17-59); Albumin 3.2 g/dl (3.5-5.0); Alkaline Phosphatase 46 U/L (38-126); Blood Urea Nitrogen 41 mg/dl (9-20); Calcium 8.5 mg/dl (8.4-10.2); Carbon Dioxide 18 mmol/L (22-30); Chloride 103 mmol/L (98-107); Estimated Creatinine Clearance 40 ml/min; Glucose 162 mg/dl (70-99); Potassium 4.3 mmol/L (3.5-5.1); Sodium 129 mmol/L (135-145); Total Protein 5.6 g/dl (6.3-8.2); eGFR 55.19
[2025-07-05 17:29] LABS: COVID-19 Antigen Negative (Negative)
[2025-07-05 17:41] LABS: Troponin I 0.036 ng/ml
--- NOTE | 2025-07-05 18:57 | ED.GENMED ---
History of Present Illness
General
Chief Complaint: Breathing Problem
Source: patient and family
Time Seen by Provider: 07/05/25 16:24
History of Present Illness
History of Present Illness:
Note:
CHIEF COMPLAINT(S)
- Shortness of breath and chills.
HISTORY OF PRESENT ILLNESS
The patient is an 80-year-old male with a history of lung cancer metastatic to the brain, who presented for a Positron Emission Tomography (PET) scan. His symptoms began in the morning with feelings of weakness, and he has been experiencing ongoing
general weakness due to lung cancer and related treatments. The patient recently underwent Gamma Knife radiosurgery on June 19 for brain metastases and had discontinued steroid therapy post-treatment.
Upon returning home post-PET scan, family members observed that the patient appeared disoriented and weak. He exhibited episodes of oxygen desaturation, initially dropping as low as 82%, and improving to low 90s% with incentive spirometry and
ambulation but subsequently dropping again. Blood pressure readings were low, reported in the 80s/50s mmHg range, managed transiently by consumption of salty fluids. The patient also reported chills and an elevated temperature prior to the visit;
management at home included a heating pad and warm clothing. Cough has persisted since discontinuation of steroids and is observed to be gradually worsening.
A chest X-ray was performed during an emergency visit two days prior due to similar symptoms, excluding acute processes like pneumonia then, but noted crackles were present upon auscultation. Despite recent interventions, the patient continues to
report tiredness and weakness and family reports hearing wheezing sounds at night while he is asleep. The patient is scheduled for immunotherapy on the upcoming Wednesday.
Additional historians
and daughter at bedside. Daughter states that he did not seem well this morning and oxygen dropped even more significantly later. states that she was up most of the night listening to him breathe heavily.
REVIEW OF SYSTEMS
- Respiratory: Shortness of breath, cough, wheezing, crackles heard by family.
- Cardiovascular: Low blood pressure as described.
- Constitutional: Generalized weakness, chills, feeling hot, and episodic desaturation.
- Neurological: Post-brain metastases, recent gamma knife procedure.
PHYSICAL EXAM
General: Alert but fatigued, no acute distress.
Skin: Warm, no diaphoresis noted at the time.
Head: Normocephalic, atraumatic.
Neck: Supple, trachea midline.
Eye, Ears, Nose, Mouth, and Throat: Oral mucosa moist.
Cardiovascular: Heart regular. No edema in lower extremities.
Respiratory: Crackles present bilaterally, mild tachypnea noted. Oxygen saturation 93% on 4 liters of oxygen, decreases to 87% on room air.
Gastrointestinal: Abdomen non-distended.
Back: Normal range of motion, Normal alignment.
Musculoskeletal: Normal ROM, normal strength.
Neurological: Alert and oriented to person, place, time, and situation.
Psychiatric: Cooperative, appropriate mood & affect.
PROBLEM LIST
- Lung cancer with brain metastasis.
- Dyspnea with oxygen desaturation.
- Low blood pressure.
- Persistent cough with crackles.
PLAN
1. Admit for overnight observation to stabilize oxygen levels and evaluate contributing factors before proceeding with scheduled immunotherapy.
2. Order chest imaging to assess for pneumonia, infection, and other possible thoracic complications.
3. Obtain laboratory studies to evaluate for signs of infection or other metabolic derangements.
4. Consider possible administration of fluids and additional oxygen support as needed.
5. Follow up on potential immunotherapy plan based on stabilization outcomes.
6. Immediate consultation with oncology team post-imaging results and lab reports.
DIFFERENTIAL DIAGNOSIS
The Differential Diagnosis includes, in no particular order and is not limited to:
- Pneumonia
- Pulmonary embolism
- Heart failure exacerbation
- Advanced cancer-related symptoms
- Chronic obstructive pulmonary disease exacerbation
- Anxiety-induced dyspnea
- Metabolic imbalance
- Dehydration-related hypotension
- Infection of unknown etiology
- Medication side effects
EKG
My independent EKG interpretation is:
- Time of EKG: Not specified
- Rhythm: Normal sinus rhythm
- Heart Rate: Not specified
- MI Interval: First-degree AV block
- QRS Duration: Not specified
- QT Interval: Not specified
- [place]: Normal axis
- Abnormalities: No significant ST segment or T wave changes observed
- Other: None specified other than first-degree AV block
Disposition:
SUMMARY OF ENCOUNTER
The patient is an 80-year-old male with a known history of lung cancer metastatic to the brain, who presented to the emergency department with hypoxia and was noted to be significantly desaturated with oxygen levels dropping to around 80% on room
air. Upon arrival, he required supplemental oxygen at 4 liters per minute. A CT pulmonary angiogram was performed and excluded pulmonary embolism, but showed ground-glass opacities and septal thickening, raising concerns about lymphangitic
carcinomatosis and the possibility of atypical pneumonia. His clinical presentation, along with elevated oxygen requirements, was considered concerning enough to warrant hospitalization for further monitoring and management. Laboratory tests showed
a white blood cell count of 11,000/�L, hemoglobin of 11.3 g/dL, BUN and creatinine at 41 mg/dL and 1.3 mg/dL respectively, mild hyponatremia at 129 mmol/L, and a mildly elevated troponin level at 0.036 ng/mL, likely due to hypoxia-induced demand
rather than an acute coronary event.
DISPOSITION
Admit.
ASSESSMENT
The patient is likely experiencing severe respiratory compromise related to either metastatic disease progression or possible atypical pneumonia, necessitating close inpatient observation and management.
PLAN
1. Admit to hospital for further evaluation and monitoring, particularly of respiratory status and potential infectious processes.
2. Initiate empirical antibiotic therapy given the potential for atypical pneumonia.
3. Monitor and support oxygenation, adjusting supplemental oxygen as necessary.
4. Consider further oncologic evaluation and management in the context of suspected lymphangitic carcinomatosis.
5. Continue to evaluate lab findings and manage electrolyte imbalances, including addressing hyponatremia and ensuring adequate renal function.
INDEPENDENT REVIEW OF LABS AND INTERPRETATION OF TESTS
- My independent review of the CBC indicates leukocytosis with a white blood cell count of 11,000/�L and mild anemia with hemoglobin of 11.3 g/dL.
- My independent review of the metabolic panel reveals mild hyponatremia at 129 mmol/L and potential renal insufficiency with BUN and creatinine levels at 41 mg/dL and 1.3 mg/dL, respectively.
- My independent review of troponin shows a mild elevation at 0.036 ng/mL, suggesting demand ischemia due to hypoxia rather than an acute coronary syndrome.
MEDICATION RECONCILIATION
Empirical antibiotic therapy initiated (specific medications not listed, please verify). Supplemental oxygen therapy continued at 4 liters per minute.
MEDICAL DECISION MAKING
- Number and Complexity of Problems Addressed: Chronic conditions affecting care include lung cancer with brain metastasis, and complex presentation likely related to lymphangitic carcinomatosis or atypical pneumonia.
- Data:
- Category 1:
- My independent interpretation of the CT pulmonary angiogram excluded pulmonary embolism but suggested findings consistent with lymphangitic carcinomatosis.
- Category 3:
- Discussion of management occurred with the oncology and internal medicine teams regarding further evaluation and treatment options.
- Risk: Admission required due to high risk of complications related to respiratory compromise and potential underlying metastatic disease progression.
DIAGNOSIS
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
- Atypical pneumonia, possible (ICD-10: J18.9)
- Respiratory failure due to hypoxia (ICD-10: J96.01)
Past History
Past History
ED Past Medical History: HTN, Hypercholesterolemia, Hypothyroidism and Other (Lumbar disc disease, impaired fasting glucose)
ED Past Surgical History: Orthopedic (Hip replacement)
Social History
Tobacco: Non-smoker
Alcohol: None
Personal:
Living: with family
Employment: Retired
Family History
Family History: Other (Noncontributory)
Phy Exam
Physical Exam
Physical Exam:
.
Scores
Heart Failure Risk
Heart Failure Risk Score: Not Applicable
Course
Orders/Labs/Results
Orders:
Orders
07/05/25 16:34
EKG [Electrocardiogram (*1)] Urgent
Reason for Study: Syncope
07/05/25 16:35
EKG- Treatment ONCE
07/05/25 16:36
Complete Blood Count/With Diff Urgent
Comprehensive Metabolic Panel Urgent
07/05/25 16:44
Urinalysis Reflex To Culture Urgent
07/05/25 16:47
CR Chest - 2 Views Urgent
Comment:
Reason For Exam: sob, weakness
07/05/25 16:59
COVID-19 Antigen Urgent
Source: Nasal Swab
Troponin I Urgent
Blood Culture Q30M
JOE Source: Blood/Venous
Specimen Description:
Blood Culture Q30M
JOE Source: Blood/Venous
Specimen Description:
Influenza A+B Rapid Molecular Urgent
JOE Source: Nasal Swab
Specimen Description:
07/05/25 17:51
CT Chest PE Study Urgent
Comment:
Reason For Exam: sob, hypoxia
07/05/25 18:57
Dexamethasone Sod Phosphate [Decadron] 10 mg IV NOW STA
Piperacillin/Tazo 3.375 Gram [Zosyn] 3.375 gram in 50 ml IV NOW
07/05/25 19:26
Lactic Acid Q4H
Comment: CANCEL 2nd LACTIC ACID IF 1st LACTIC ACID IS LESS THAN 2
Abnormal Lab Results
07/05/25 07/05/25
16:36 16:59
WBC 11.1 H 10^3/uL
(4.8-10.8)
RBC 3.79 L 10^6/uL
(4.70-6.10)
Hgb 11.3 L g/dL
(13.0-18.0)
Hct 32.8 L %
(39.0-52.0)
Abs Immat Gran (auto) 0.2 H 10^3/uL
(0-0.05)
Absolute Neuts (auto) 8.8 H 10^3/uL
(1.4-6.5)
Immature Gran % 1.5 H %
(0-0.5)
Neutrophils % 79.3 H %
(42.2-75.2)
Lymphocytes % 11.4 L %
(20.5-51.1)
Sodium 129 L mmol/L
(135-145)
Carbon Dioxide 18 L mmol/L
(22-30)
BUN 41 H mg/dl
(9-20)
Glucose 162 H mg/dl
(70-99)
Troponin I 0.036 H* ng/ml
Total Protein 5.6 L g/dl
(6.3-8.2)
Albumin 3.2 L g/dl
(3.5-5.0)
07/05/25 16:36
07/05/25 16:36
Vital Signs
Initial and Last Documented VS:
Initial Vital Signs
Temp Pulse Resp BP Pulse Ox
98.6 F 77 25 94/62 93
07/05/25 16:19 07/05/25 16:19 07/05/25 16:19 07/05/25 16:19 07/05/25 16:19
Last Documented Vital Signs
Temp Pulse Resp BP Pulse Ox
97.8 F 76 28 98/54 94
07/05/25 19:27 07/05/25 19:27 07/05/25 19:27 07/05/25 19:27 07/05/25 19:27
*Pulse Oximetry
SaO2: 92
Nasal Cannula flow liters per minute: 4
Patient hypoxic: yes
*Critical Care Note
Total Time (30-74mins, 75-104mins- exclusive of procedures): 35 minutes
ED Attending Note
-
Portions of this chart may have been created with voice recognition software.� Occasional wrong word or��sound alike� substitutions may have occurred due to the inherent limitations of voice recognition software.
Discharge Plan
Departure
Patient Disposition: Admit
Date of Disposition: 07/05/25
Time of Disposition: 19:00
Admit to: Telemetry
Presentation/result/management discussed w/ accepting MD/DO: Hospitalist
Discharge Problem:
Hypoxia, Lung cancer, Hyponatremia, pulmonary metastatic disease
Prescriptions:
No Action
diltiazem HCl 360 mg capsule,extended release 24hr
360 mg PO DAILY
losartan 50 mg Tablet
50 mg PO BID
hydrochlorothiazide 25 mg Tablet
25 mg PO DAILY Qty: 0
spironolactone 50 mg Tablet
50 mg PO DAILY Qty: 0
rosuvastatin [Crestor] 10 mg Tablet
10 mg PO QPM Qty: 0
levothyroxine [Synthroid] 75 mcg Tablet
75 mcg PO DAILY Qty: 0
travoprost 0.004 % Drops
1 drp RIGHT EYE Q48H@1900
pantoprazole 40 mg Tablet,Delayed Release (Dr/Ec)
40 mg PO DAILY Qty: 30 0RF
azithromycin 250 mg Tablet
0 mg PO .COMPLEX
Rx Instructions:
For 250 mg dose pack: take 500 mg today (day 1), then 250 mg for 4 days (days 2-5)
cyanocobalamin (vitamin B-12) 1,000 mcg Tablet
1,000 mcg PO DAILY
acetaminophen [Tylenol Extra Strength] 500 mg Tablet
1,000 mg PO Q6HPRN PRN (Reason: mild pain)
cholecalciferol (vitamin D3) [Vitamin D3] 25 mcg (1,000 unit) Tablet
25 mcg PO DAILY
insulin glargine [Lantus Solostar U-100 Insulin] 100 unit/mL (3 mL) Insulin Pen
10 unit SC HS
omega 2-zse-ivh-fish oil [Fish Oil] 1,000 (120-180) mg Capsule
1 cap PO DAILY
Referrals:
Rosa Delgado MD [Family Provider, Internal Medicine]
Interventions
Interventions:
*Risk Screen - Suicide Last Done: 07/05/25 16:25
*General Assessment Last Done: 07/05/25 16:24
*Neglect/Abuse Screening Last Done: 07/05/25 16:24
ED- Cardiac Assessment Last Done: 07/05/25 17:12
ED- Pulmonary Assessment Last Done: 07/05/25 16:26
Discharge Date and Time
Print Language: MALDIVIAN
[2025-07-05] MEDS: ZOSYN 50 IV (19:20)
[2025-07-05 20:16] LABS: Urine Character Clear (Clear)
--- NOTE | 2025-07-05 20:37 | HPS.HSE ---
Addendum entered and electronically signed by Steve Urban MD 07/05/25 20:40:
Blood pressure 98/54. Blood cultures pending. Hold all antihypertensive medications.
Original Note:
Family Physician
-
Family Physician: Rosa Delgado
Chief Complaint
-
hypoxemia
History of Present Illness
80-year-old male past medical history of metastatic lung cancer, brain mets status post gamma knife radiation, likely distal ascending colonic metastasis, hypothyroidism, diabetes, hypertension, hyperlipidemia, GERD, presenting with shortness of
breath and chills. He began feeling weak in the morning with ongoing weakness after PET scan. He exhibited episodes of oxygen desaturation dropping as low as 82% improving to low 90s with incentive spirometry and ambulation. He had a syncopal
episode when he had to put his head down for a few seconds and his splashed water on his face and he became awake. Blood pressure was 80s over 50s. He also had chills and worsening cough without phlegm.
He complains of some chest pressure.
He recently underwent gamma knife radiation and steroids for brain metastases.
Medical History
Past Medical History
Past Medical History: Reports Other (metastatic lung cancer, brain mets status post gamma knife radiation, likely distal ascending colonic metastasis, hypothyroidism, diabetes, hypertension, hyperlipidemia, GERD,)
Past Surgical History: Reports Other (Left total knee arthroplasty))
Social History
Tobacco: Former Smoker
Alcohol: None
Drug: None
Family History
Family History: Not pertinent
Allergies / Home Medications
Allergies reflects when Allergies were last updated in [facility].
Home Medications with original date entered in [facility]
Allergy/Medication List:
Allergies
Allergy/AdvReac Type Severity Reaction Status Date / Time
No Known Allergies Allergy Verified 07/05/25 16:23
Home Medications
diltiazem HCl 360 mg capsule,extended release 24 hr 360 mg PO DAILY Heart Disease/BP 06/03/25
hydrochlorothiazide 25 mg tablet 25 mg PO DAILY Blood Pressure ##0 06/03/25
levothyroxine 75 mcg tablet (Synthroid) 75 mcg PO DAILY Thyroid ##0 06/03/25
losartan 50 mg tablet 50 mg PO BID Blood Pressure 06/03/25
rosuvastatin 10 mg tablet (Crestor) 10 mg PO QPM cholesterol ##0 06/03/25
spironolactone 50 mg tablet 50 mg PO DAILY Fluid Retention/BP ##0 06/03/25
travoprost 0.004 % eye drops 1 drp RIGHT EYE Q48H@1900 06/05/25
pantoprazole 40 mg tablet,delayed release 40 mg PO DAILY #30 tabs 06/06/25
acetaminophen 500 mg tablet (Tylenol Extra Strength) 1,000 mg PO Q6HPRN PRN mild pain 07/05/25
azithromycin 250 mg tablet 0 mg PO .COMPLEX 07/05/25
cholecalciferol (vitamin D3) 25 mcg (1,000 unit) tablet (Vitamin D3) 25 mcg PO DAILY 07/05/25
cyanocobalamin (vitamin B-12) 1,000 mcg tablet 1,000 mcg PO DAILY 07/05/25
insulin glargine 100 unit/mL (3 mL) subcutaneous pen (Lantus Solostar U-100 Insulin) 10 unit SC HS 07/05/25
omega 1-mvc-zqj-fish oil 1,000 mg (120 mg-180 mg) capsule (Fish Oil) 1 cap PO DAILY 07/05/25
Review of Systems
-
History Source: Patient
A 12 point ROS was completed and negative except as noted: Yes
Constitutional: Reports No Symptoms
EENT: Reports No Symptoms
Respiratory: Reports No Symptoms
Cardiac: Reports No Symptoms
Abdomen/GI: Reports No Symptoms
: Reports No Symptoms
Musculoskeletal: Reports No Symptoms
Skin: Reports No Symptoms
Neurological: Reports No Symptoms
Endocrine: Reports No Symptoms
Hematologic/Lymphatic: Reports No Symptoms
Psych: Reports No Symptoms
Physical Exam
Vital Signs
Vital Signs
Temp Pulse Resp BP Pulse Ox
97.8 F 76 28 98/54 94
07/05/25 19:27 07/05/25 19:27 07/05/25 19:27 07/05/25 19:27 07/05/25 19:27
Physical Exam
General: Well Developed, Well Nourished and No Apparent Distress
HEENT: NormoCephalic, Moist mucous membranes and Atraumatic
Respiratory: Clear
Cardiac: S1/S2 and Regular Rhythm; No Murmur or Rub
GI: Soft, Non Tender, Non Distended and Normal Bowel Sounds; No Organomegaly
Rectal: Deferred by Provider
Musculoskeletal: No Clubbing, No Cyanosis and No Edema
Skin: No Rash
Neuro: Nonfocal/grossly intact
Laboratory Results
-
07/05/25 16:36
07/05/25 16:36
Laboratory Results
Lactic Acid 0.9 mmol/L (0.7-2.0) 07/05/25 19:26
Total Bilirubin 0.5 mg/dl (0.2-1.3) 07/05/25 16:36
AST 22 U/L (17-59) 07/05/25 16:36
ALT 27 U/L (0-50) 07/05/25 16:36
Alkaline Phosphatase 46 U/L (38-126) 07/05/25 16:36
Troponin I 0.036 ng/ml H* 07/05/25 16:59
Data Reviewed
-
Lab Data: Labs Reviewed by me
Old Records: Reviewed
Impression/Plan
-
IMPRESSION:
PLAN:
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
# History of metastatic lung cancer
- CT shows extensive pulmonary metastatic disease, ground glass opacities and septal thickening in the mid to lower aspect of both lungs, left greater than right raising concern for lymphangitic carcinomatosis, pulm edema or atypical pneumonia would
be alternative considerations
- Stable leukocytosis of 11
- Given Zosyn, continue for now
- Family does not want to start steroids at this time because it would prevent him from starting immunotherapy on Wednesday
- Will likely need home oxygen
- Pulmonary consulted
# Presyncopal/syncopal episode secondary to hypoxemia
- Telemetry monitoring
# Nonischemic myocardial injury
- Troponin of 0.036, continue to trend
- EKG shows sinus rhythm with first-degree AV block
Metastatic lung cancer
- Supposed to start immunotherapy on Wednesday
Brain metastasis post gamma knife radiation
Mild hyponatremia secondary to malignancy
- Stable
Distal ascending colonic mass likely metastasis
- Has not been biopsied
Chronic anemia
- Hemoglobin stable 11.3
Hypothyroidism
- Continue levothyroxine
Essential hypertension
- Continue spironolactone, losartan, hydrochlorothiazide, diltiazem
Hyperlipidemia
- Continue statin
GERD
- Continue Protonix
Type 2 diabetes
- Continue Lantus 10 units
- Insulin sliding scale
Former smoker
Full code
DVT prophylaxis�heparin
Regular diet
[2025-07-05 20:51] LABS: Urine Red Blood Cell 0-2 /HPF (0-2); Urine Squamous Cell 0-2 /LPF (Few); Urine White Cell 0-2 /HPF (0-5)
[2025-07-05] MEDS: LANTUS 0.1 UNITS SC (22:11)
[2025-07-05 22:12] LABS: Glucose - Point of Care 231 mg/dl (70-99)
[2025-07-05] MEDS: TYLENOL 650 MG PO (22:24)
[2025-07-05 23:33] LABS: Troponin I 0.031 ng/ml
[2025-07-06] VITALS (8 sets, daily range): BP systolic 108–125; BP diastolic 61–73; PULSE 107–123; O2SAT 90–95; BMI 27.1
[2025-07-06] MEDS: ZOSYN 50 IV ×2 (02:19→08:20)
[2025-07-06] MEDS: TYLENOL 650 MG PO ×4 (02:25→23:21)
[2025-07-06] MEDS: DUONEB 3 ML INH (03:42)
--- NOTE | 2025-07-06 03:54 | PTCARENOTE ---
pt admitted to 322 and walked from stretcher to bed. Small amount of [place] but pt stated he did not feel SOB. 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 Pulse ox taken on
R ear, 99% on 4L.
around 0230, pt walked to bathroom w/ this RN. Pt very [place] w/ ambulation and HR in 130s. Temp 100.5, PRN tylenol given. Pt 91% on 6L NC. After resting, pt placed back on 4L NC, saturation 96%. Pt still having SOB around 0300. SHOEMAKING CUTTER notified and neb
ordered. pt stated his SOB is 'going down'. Plan of care ongoing and call rios within reach.
[2025-07-06] MEDS: SYNTHROID 75 MCG PO (04:13)
[2025-07-06 05:23] LABS: Hematocrit 31.6 % (39.0-52.0); Hemoglobin 11.1 g/dL (13.0-18.0); Mean Corp Hgb Conc. 35.1 g/dL (33.0-37.0); Mean Corpuscular Volume 86.3 fL (80.0-94.0); Nucleated Red Blood Cells % 0 % (-); Platelet Count 209 10^3/uL (130-400); Red Cell Dist. Width 13.9 % (11.5-14.5)
[2025-07-06 06:01] LABS: Troponin I 0.034 ng/ml
[2025-07-06 07:39] LABS: Glucose - Point of Care 173 mg/dl (70-99)
[2025-07-06 07:40] LABS: ALT (SGPT) 33 U/L (0-50); AST (SGOT) 25 U/L (17-59); Albumin 3.1 g/dl (3.5-5.0); Alkaline Phosphatase 51 U/L (38-126); Blood Urea Nitrogen 33 mg/dl (9-20); Calcium 8.4 mg/dl (8.4-10.2); Carbon Dioxide 17 mmol/L (22-30); Chloride 106 mmol/L (98-107); Estimated Creatinine Clearance 52 ml/min; Glucose 202 mg/dl (70-99); Potassium 4.1 mmol/L (3.5-5.1); Sodium 130 mmol/L (135-145); Total Protein 5.4 g/dl (6.3-8.2); eGFR > 60.00
[2025-07-06 08:18] LABS: Glycohemoglobin (HgbA1c) 8.9 % (4.0-5.6)
[2025-07-06] MEDS: VITAMIN D3 (cholecalciferol) 25 MCG PO (08:21)
[2025-07-06] MEDS: HEPARIN 5000 UNITS SC ×2 (08:21→19:55)
[2025-07-06] MEDS: VITAMIN B-12 1000 MCG PO (08:21)
[2025-07-06] MEDS: PROTONIX 40 MG PO (08:21)
--- NOTE | 2025-07-06 09:24 | W.PN.HOSP.TC ---
Today's Communication/Plan
-
IV fluids
Antibiotics
PT/OT
Oncology consult
Assessment / Plan
Assessment / Plan
Gen-AAOx3, NAD
HEENT-NC, AT, anicteric, clear oral mm
Neck-supple
CV-reg, no M, +S1/S2
Lungs-bilateral rales
Abd-soft, NT, ND
Ext-no edema
Musculoskeletal-no cyanosis, clubbing
Skin-warm and dry
Neuro-grossly non-focal
Psych-calm, cooperative
Acute hypoxic respiratory failure -suspect multifactorial etiology including advanced lung cancer, cannot rule out underlying community-acquired pneumonia. Stable on 4 L nasal cannula oxygen, wean down as able. Not on home oxygen.
CT chest on admission negative for pulmonary embolism. Does show extensive pulmonary metastatic disease, possible lymphangitic carcinomatosis.
Sepsis -possibly due to community-acquired pneumonia. Presentation with fever, leukocytosis, tachycardia. Will change antibiotics to ceftriaxone, azithromycin.
Blood cultures sent. COVID and influenza negative.
Generalized weakness -progressing over the past few weeks. Likely multifactorial etiology including metastatic lung cancer, possible pneumonia, volume depletion with hypotension.
Hydrate with IV fluids, hold antihypertensives. Continue supportive care. PT/OT.
Near syncopal episode at home noted by family.
I would not put any clinical weight into mild troponin elevation noted on admission. Subsequent troponins have been negative. Clinically doubt ACS.
Hyponatremia -suspect hypovolemic given presentation with hypotension, prerenal azotemia, near syncope. Sodium 130 today, normal saline IV ordered.
Permanently discontinue hydrochlorothiazide.
Metastatic pulmonary adenocarcinoma -under the care of [facility], Dr. Martin. Scheduled for immunotherapy to start on Wednesday. Had gamma knife radiation to the brain recently, completed a course of steroids this week.
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 Hypermetabolic pancreatic mass consistent with neoplasm. Sigmoid mass consistent with neoplasm.
Oncology consulted.
DM2 with hyperglycemia -hemoglobin A1c 8.9%. Glucose 202 this morning.
At home he is on Lantus 10 units at bedtime.
In the hospital he remains on Lantus 10 units at bedtime, aspart low resistance scale.
Essential hypertension -hold meds for hypotension.
Hypothyroidism -continue levothyroxine. TSH 4.9, free T4 1.4.
Chronic anemia -hemoglobin at baseline.
Hyperlipidemia -rosuvastatin.
Full code
and daughter updated at the bedside.
Anticipated Discharge: 24 - 48 hours
Subjective/Interval History
-
Date of Service: July 06, 2025
Patient seen and examined, complaining of weakness.
Objective Data
-
Labs:
Laboratory Results
07/06/25
05:13
WBC 9.7
Hgb 11.1 L
Hct 31.6 L
Plt Count 209
Sodium 130 L
Potassium 4.1
Chloride 106
Carbon Dioxide 17 L
BUN 33 H
Creatinine 1.0
Glucose 202 H
Calcium 8.4
Total Bilirubin 0.4
AST 25
ALT 33
Alkaline Phosphatase 51
Vital Signs:
Vital Signs
Temp Pulse Resp BP Pulse Ox
98.9 F 81 18 108/61 98
07/06/25 07:00 07/06/25 07:00 07/06/25 07:00 07/06/25 07:00 07/06/25 07:00
Review of Systems
-
History Source: Patient
All other systems: Reviewed and negative
[2025-07-06] MEDS: NOVOLOG FLEXPEN-LOW RESISTANCE 1 UNITS SC ×2 (09:48→13:09)
[2025-07-06] MEDS: NSS 1000 IV ×2 (10:48→20:20)
[2025-07-06] MEDS: ZITHROMAX 500 MG PO (10:48)
[2025-07-06] MEDS: ROCEPHIN 2000 MG IV (10:50)
[2025-07-06] MEDS: STERILE WATER FOR INJECTION 20 ML IV (10:50)
[2025-07-06 11:06] LABS: Troponin I 0.023 ng/ml
[2025-07-06 12:20] LABS: Glucose - Point of Care 195 mg/dl (70-99)
--- NOTE | 2025-07-06 12:39 | CON.ONC ---
Documented by User: ANNA Gao 07/06/25 13:07
Consultation
-
Date Consultation Requested: 07/06/25
Date Consultation Performed: 07/06/25
Requesting Provider: Dr. Apollo Liu
Performing Provider: Dr. Xavier Verde
Reason for Consultation: Metastatic lung cancer
Impression
Impression
metastatic lung adenocarcinoma
brain mets s/p gamma knife
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
uncontrolled DM
Plan
Plan
Abx per primary service, follow cultures
dexamethasone taper per radiation oncology
Goals restorative to start single agent Keytruda for palliative treatment of his metastatic lung cancer -optimize performance status and nutritional status
If pt requires SNF at discharge then we will start treatment once his performance status allows for return home
Patient History
History of Present Illness
80yo M who presented with SOB and chills. He reports a cough, hypoxia, and hypotension at home that did not improve with starting a Zpack 07/04/2025 and pushing oral fluids which prompted him to seek further evaluation in the ER. He reports
progressive weakness and syncopal symptoms at home. His initial evaluation was notable for WBC 11.1, Hgb 11.3, MCV 86, platelet count 203,000, Na 130, BUN 33, creatinine 1, normal LFTs, A1C 8.9. He was influenza negative. His CT chest showed no
pulmonary emboli, however, did show known malignancy and groundglass opacities and septal thickening in the mid to lower aspects of both lungs, left greater than right. He has been admitted, started on IV steroids, and IV abx.
In brief, he was seen by Dr. Martin in consult last May 2025 for his newly diagnosed lung cancer. He presented to mid May 2025 with arm weakness. Imaging showed multiple brain mets with edema, and multiple lug masses, including a dominant
4.1cm mass in the RUL. He was started on dexamethasone with improvement of his neurological symptoms. He underwent RUL nodule bx that was diagnostic for poorly differentiated adenocarcinoma. A lung prognostic panel showed no cattle driver mutation,
however, did show a high expression of PDL1, with a TPS of 95% and intensity of 2+. He was scheduled with Dr. Coburn for gamma knife 06/19/2025 with steroid taper to follow. His PET CT on 07/05/2025 showed numerous bilateral hypermetabolic metastatic
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
FDG avid a sigmoid mass.
Tmax 100.7f, 3-4L NC, hypotension improved
Past-Medical/Surgical History
PMH HTN, LVH, HLD, aortic aneurysm, osteoarthritis, DM2, hypothyroid, GERD
PSH L hip replacement 2023
Family father lung cancer, sibling lung cancer
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 Lives with .
Patient Medication
�Medication �Instructions �Recorded �Confirmed �Last Taken �Type
diltiazem HCl 360 mg 360 mg PO DAILY Heart Disease/BP 06/03/25 07/05/25 07/05/25 History
capsule,extended release 24 hr
hydrochlorothiazide 25 mg tablet 25 mg PO DAILY Blood Pressure ##0 06/03/25 07/05/25 07/05/25 History
levothyroxine 75 mcg tablet 75 mcg PO DAILY Thyroid ##0 06/03/25 07/05/25 07/05/25 History
(Synthroid)
losartan 50 mg tablet 50 mg PO BID Blood Pressure 06/03/25 07/05/25 07/05/25 History
rosuvastatin 10 mg tablet (Crestor) 10 mg PO QPM cholesterol ##0 06/03/25 07/05/25 07/04/25 History
spironolactone 50 mg tablet 50 mg PO DAILY Fluid Retention/BP 06/03/25 07/05/25 07/05/25 History
##0
travoprost 0.004 % eye drops 1 drp RIGHT EYE Q48H@1900 06/05/25 07/05/25 07/04/25 History
pantoprazole 40 mg tablet,delayed 40 mg PO DAILY #30 tabs 06/06/25 07/05/25 07/05/25 Rx
release
acetaminophen 500 mg tablet 1,000 mg PO Q6HPRN PRN mild pain 07/05/25 07/05/25 07/05/25 History
(Tylenol Extra Strength)
azithromycin 250 mg tablet 0 mg PO .COMPLEX 07/05/25 07/05/25 07/04/25 History
cholecalciferol (vitamin D3) 25 25 mcg PO DAILY 07/05/25 07/05/25 07/05/25 History
mcg (1,000 unit) tablet (Vitamin
D3)
cyanocobalamin (vitamin B-12) 1,000 mcg PO DAILY 07/05/25 07/05/25 07/05/25 History
1,000 mcg tablet
insulin glargine 100 unit/mL (3 10 unit SC HS 07/05/25 07/05/25 07/04/25 History
mL) subcutaneous pen (Lantus
Solostar U-100 Insulin)
omega 0-qae-hgw-fish oil 1,000 mg 1 cap PO DAILY 07/05/25 07/05/25 07/05/25 History
(120 mg-180 mg) capsule (Fish Oil)
Active Medications
Generic Name Dose Route Start Last Admin
Trade Name Freq PRN Reason Stop Dose Admin
Acetaminophen 650 mg 07/05/25 21:40 07/06/25 11:03
Acetaminophen 325 Mg Tablet PO 08/02/25 21:39 650 mg
Q4HPRN PRN Administration
mild pain/QUACH/temp> 100.4F
Albuterol/Ipratropium 3 ml 07/06/25 03:23 07/06/25 03:42
Ipratropium 0.5/Albuterol 3 Mg (3 Ml Ampul) INH 3 ml
R Q4HPRN PRN Administration
sob/wheeze
Protocol
Azithromycin 500 mg 07/06/25 10:00 07/06/25 10:48
Azithromycin 250 Mg Tablet PO 500 mg
DAILY DAVID Administration
Ceftriaxone Sodium 2,000 mg 07/06/25 10:00 07/06/25 10:50
Ceftriaxone 2,000 Mg/20 Ml Vial IV 2,000 mg
Q24H DAVID Administration
Cholecalciferol 25 mcg 07/06/25 08:00 07/06/25 08:21
Cholecalciferol (Vitamin D3) 25 Mcg Tablet (1,000 Units) PO 08/03/25 07:59 25 mcg
DAILY DAVID Administration
Cyanocobalamin 1,000 mcg 07/06/25 08:00 07/06/25 08:21
Cyanocobalamin (Vitamin B-12) 500 Mcg Tablet PO 08/03/25 07:59 1,000 mcg
DAILY DAVID Administration
Dextrose 12.5 grams 07/05/25 21:40
Dextrose 50% (0.5 Grams/Ml) 50 Ml Syringe IV 08/02/25 21:39
[id number] PRN
hypoglycemia
Protocol
Glucagon 1 mg 07/05/25 21:40
Glucagon 1 Mg Vial IM 08/02/25 21:39
PRN PRN
hypoglycemia
Protocol
Heparin Sodium 5,000 units 07/06/25 08:00 07/06/25 08:21
Heparin 5,000 Units/Ml 1 Ml Vial SC 08/03/25 07:59 5,000 units
Q12 DAVID Administration
Insulin Glargine 10 units/ 0.1 mls @ 0 mls/hr 07/05/25 22:00 07/05/25 22:11
Device SC 08/02/25 21:59 0.1 mls
HS DAVID Administration
As Directed
Sodium Chloride 1,000 mls @ 100 mls/hr 07/06/25 09:45 07/06/25 10:48
Nss IV 07/07/25 05:44 1,000 mls
.Q10H DAVID Administration
Insulin Aspart 0 units 07/06/25 07:30 07/06/25 09:48
Insulin Aspart Low Resistance 300 Units/3 Ml Pen.Injctr SC 08/03/25 07:29 1 units
AC DAVID Administration
Protocol
Latanoprost 0 drop 07/06/25 19:00
Latanoprost 0.005% (Ophthalmic Solution) 2.5 Ml Bottle RIGHT EYE 08/03/25 18:59
Q48H DAVID
Levothyroxine Sodium 75 mcg 07/06/25 06:00 07/06/25 04:13
Levothyroxine 75 Mcg Tablet PO 08/03/25 05:59 75 mcg
DAILY @ 0600 DAVID Administration
Pantoprazole Sodium 40 mg 07/06/25 08:00 07/06/25 08:21
Pantoprazole 40 Mg Delayed Release Tablet PO 08/03/25 07:59 40 mg
DAILY DAVID Administration
Rosuvastatin Calcium 10 mg 07/06/25 18:00
Rosuvastatin (Crestor) 10 Mg Tablet PO 08/03/25 17:59
QPM DAVID
Sodium Chloride 0 flush 07/05/25 22:00
Sodium Chloride 0.9% (Flush) Syringe IV 08/02/25 21:59
PER PROTOCOL DAVID
Sterile Water 20 ml 07/06/25 10:45 07/06/25 10:50
Sterile Water For Injection 20 Ml Vial IV 08/03/25 10:44 20 ml
Q24H DAVID Administration
Review of Systems
-
ROS is notable for HPI, otherwise negative
Physical Exam
Labs
Lab Results
WBC 9.7 10^3/uL (4.8-10.8) 07/06/25 05:13
RBC 3.66 10^6/uL (4.70-6.10) L 07/06/25 05:13
Hgb 11.1 g/dL (13.0-18.0) L 07/06/25 05:13
Hct 31.6 % (39.0-52.0) L 07/06/25 05:13
MCV 86.3 fL (80.0-94.0) 07/06/25 05:13
MCH 30.3 pg (27.0-31.0) 07/06/25 05:13
MCHC 35.1 g/dL (33.0-37.0) 07/06/25 05:13
RDW 13.9 % (11.5-14.5) 07/06/25 05:13
Plt Count 209 10^3/uL (130-400) 07/06/25 05:13
MPV 9.9 fL (7.4-10.4) 07/06/25 05:13
Abs Immat Gran (auto) 0.2 10^3/uL (0-0.05) H 07/06/25 05:13
Absolute Neuts (auto) 7.8 10^3/uL (1.4-6.5) H 07/06/25 05:13
Absolute Lymphs (auto) 1.2 10^3/uL (1.2-3.4) 07/06/25 05:13
Absolute Monos (auto) 0.4 10^3/uL (0.1-0.6) 07/06/25 05:13
Absolute Eos (auto) 0.1 10^3/uL (0-0.7) 07/06/25 05:13
Absolute Basos (auto) 0.0 10^3/uL (0-0.2) 07/06/25 05:13
Immature Gran % 1.6 % (0-0.5) H 07/06/25 05:13
Neutrophils % 80.5 % (42.2-75.2) H 07/06/25 05:13
Lymphocytes % 12.1 % (20.5-51.1) L 07/06/25 05:13
Monocytes % 4.5 % (1.7-9.3) 07/06/25 05:13
Eosinophils % 1.1 % (0-6) 07/06/25 05:13
Basophils % 0.2 % (0-2) 07/06/25 05:13
Creatinine 1.0 mg/dL (0.7-1.3) 07/06/25 05:13
Vital Signs
Vital Signs
Temp Pulse Resp BP Pulse Ox
100.7 F H 112 18 120/73 95
07/06/25 11:00 07/06/25 11:00 07/06/25 11:00 07/06/25 11:00 07/06/25 11:00

Documented by User: Xavier Verde MD 07/06/25 14:09
Plan
Plan
Abx per primary service, follow cultures
dexamethasone taper per radiation oncology
Goals restorative to start single agent Keytruda for palliative treatment of his metastatic lung cancer -optimize performance status and nutritional status
If pt requires SNF at discharge then we will start treatment once his performance status allows for return home
Oncology Addendum:
Patient seen and evaluated and agree w/ SINTERING PL[employer] SUPERVISOR note and plan as outlined
-stage IV NSCLC - known to Dr. Martin
-to start palliative immunotherapy this coming week
Will continue to follow with you.
--- NOTE | 2025-07-06 14:46 | CM ---
Patient seen at bedside
IA completed
Dx: lung cancer
Metastatic pulmonary adenocarcinoma - Scheduled for immunotherapy to start on Wednesday. Had gamma knife radiation to the brain recently, completed a course of steroids this week
patient on 3L oxygen currently - Not on home oxygen-watch for home needs
Patient resides with his , son, dil & 2 grandchildren in 2 story home, 1st floor set up with bed/bathroom, 3 NOLAN
PLOF: states independent
DME: Walker, cane, shower chair
Denies VN/reports in past [facility]
PT/OT eval - Home PT vs. SNF
patient states would like to go home & start treatment
PCP: Rosa Delgado
Pharmacy: [facility]
PLAN: Home with VN vs. SNF, follow hospital progression, CM continue to follow for needs
[2025-07-06 16:21] LABS: Glucose - Point of Care 140 mg/dl (70-99)
[2025-07-06] MEDS: NOVOLOG FLEXPEN-LOW RESISTANCE SC (16:22)
--- NOTE | 2025-07-06 16:25 | PTCARENOTE ---
Assumed care of patient at 1500. Nursing assessment completed and as documented. Patient on 3L NC sat 93%. Lunch at bedside, patient refusing to eat. Dinnertime accucheck 140, patient states family bringing in dinner tonight. Denies needs at this
time. VSS, call rios within reach, care ongoing.
[2025-07-06] MEDS: CRESTOR 10 MG PO (17:12)
[2025-07-06] MEDS: XALATAN OPHTHALMIC SOLUTION 1 DROP RIGHT EYE (18:32)
[2025-07-06] MEDS: ANESTHETIC LOZENGE 1 LOZENGE PO (19:55)
[2025-07-06 21:09] LABS: Glucose - Point of Care 181 mg/dl (70-99)
[2025-07-06] MEDS: LANTUS 0.1 UNITS SC (21:09)
[2025-07-07] VITALS (9 sets, daily range): BP systolic 105–140; BP diastolic 58–84; BMI 25.9
[2025-07-07] MEDS: SYNTHROID 75 MCG PO (05:47)
[2025-07-07] MEDS: TYLENOL 650 MG PO ×2 (05:51→11:31)
[2025-07-07 08:27] LABS: Glucose - Point of Care 238 mg/dl (70-99)
[2025-07-07] MEDS: PROTONIX 40 MG PO (09:07)
[2025-07-07] MEDS: ZITHROMAX 500 MG PO (09:07)
[2025-07-07] MEDS: VITAMIN B-12 1000 MCG PO (09:07)
[2025-07-07] MEDS: HEPARIN 5000 UNITS SC (09:07)
[2025-07-07] MEDS: VITAMIN D3 (cholecalciferol) 25 MCG PO (09:07)
[2025-07-07] MEDS: NOVOLOG FLEXPEN-LOW RESISTANCE 2 UNITS SC (09:09)
[2025-07-07 09:13] LABS: Blood Urea Nitrogen 27 mg/dl (9-20); Calcium 8.3 mg/dl (8.4-10.2); Carbon Dioxide 17 mmol/L (22-30); Chloride 108 mmol/L (98-107); Estimated Creatinine Clearance 58 ml/min; Glucose 108 mg/dl (70-99); Potassium 3.9 mmol/L (3.5-5.1); Sodium 133 mmol/L (135-145); eGFR > 60.00
--- NOTE | 2025-07-07 10:05 | W.PN.HOSP.TC ---
Addendum entered and electronically signed by Apollo Liu DO 07/07/25 14:29:
Called by RN to assess patient for worsening respiratory failure, increased work of breathing.
I was immediately available at bedside for assessment. Family at bedside as well.
Patient visibly tachypneic on exam.
Does demonstrate Rales and mild wheezes bilaterally.
He just finished a nebulizer treatment.
Does not examine in obvious fluid overload, does not have lower extremity edema.
Stat portable chest x-ray obtained showing no significant change compared to previous. Stable mild bilateral airspace disease.
N-terminal BNP resulted, 626, indeterminate range.
Lasix IV 40 mg administered x 1 in case we are dealing with a component of pulmonary edema.
Patient and family deny history of heart failure.
Transfer patient to IMU.
Language line diplomatic interpreter used, as patient primarily speaks Chilean. Discussed goals of care including potential mechanical ventilation, intubation as a last resort if his respiratory status significantly worsens. Patient would want to try
ventilation if needed. He understands it would be a last resort.
Would try high flow oxygen prior to intubation if needed.
Discussed above in detail with patient, , daughter.
Updated nursing.
Original Note:
Today's Communication/Plan
-
Continue antibiotics
Oral sodium bicarbonate
Continue PT
Assessment / Plan
Assessment / Plan
Gen-AAOx3, NAD
HEENT-NC, AT, anicteric, clear oral mm
Neck-supple
CV-reg, no M, +S1/S2
Lungs-bilateral rales
Abd-soft, NT, ND
Ext-no edema
Musculoskeletal-no cyanosis, clubbing
Skin-warm and dry
Neuro-grossly non-focal
Psych-calm, cooperative
Acute hypoxic respiratory failure -suspect multifactorial etiology including advanced lung cancer, cannot rule out underlying community-acquired pneumonia. Stable on 4 L nasal cannula oxygen, wean down as able. Not on home oxygen.
CT chest on admission negative for pulmonary embolism. Does show extensive pulmonary metastatic disease, possible lymphangitic carcinomatosis.
Sepsis -possibly due to community-acquired pneumonia. Presentation with fever, leukocytosis, tachycardia. Will change antibiotics to ceftriaxone, azithromycin.
Blood cultures sent. COVID and influenza negative.
Given that he has had no improvement with antibiotics, I suspect malignancy is the primary driving factor for his presentation with respiratory failure.
Generalized weakness -progressing over the past few weeks. Likely multifactorial etiology including metastatic lung cancer, possible pneumonia, volume depletion with hypotension.
Hydrate with IV fluids, hold antihypertensives. Continue supportive care. PT/OT.
Near syncopal episode at home noted by family.
I would not put any clinical weight into mild troponin elevation noted on admission. Subsequent troponins have been negative. Clinically doubt ACS.
Hyponatremia -suspect hypovolemic given presentation with hypotension, prerenal azotemia, near syncope. Sodium improving, 133. Discontinue further IV fluids.
Permanently discontinue hydrochlorothiazide.
Normal anion gap metabolic acidosis noted. Serum bicarbonate 17. Start oral sodium bicarbonate.
Metastatic pulmonary adenocarcinoma -under the care of [facility], Dr. Martin. Scheduled for immunotherapy to start on Wednesday. Had gamma knife radiation to the brain recently, completed a course of steroids this week.
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 Hypermetabolic pancreatic mass consistent with neoplasm. Sigmoid mass consistent with neoplasm.
Family asking about starting immunotherapy in the hospital but oncology recommending outpatient therapy only.
DM2 with hyperglycemia -hemoglobin A1c 8.9%. Glucose 108 this morning.
At home he is on Lantus 10 units at bedtime.
In the hospital he remains on Lantus 10 units at bedtime, aspart low resistance scale.
Essential hypertension -hold meds for hypotension.
Hypothyroidism -continue levothyroxine. TSH 4.9, free T4 1.4.
Chronic anemia -hemoglobin at baseline.
Hyperlipidemia -rosuvastatin.
Full code
and daughter updated at the bedside.
Anticipated Discharge: Within 24 hours
Subjective/Interval History
-
Date of Service: July 07, 2025
Patient seen and examined, complaining of weakness, shortness of breath. Feels that he is not improving.
Objective Data
-
Labs:
Laboratory Results
07/07/25
07:20
Sodium 133 L
Potassium 3.9
Chloride 108 H
Carbon Dioxide 17 L
BUN 27 H
Creatinine 0.9
Glucose 108 H
Calcium 8.3 L
Vital Signs:
Vital Signs
Temp Pulse Resp BP Pulse Ox
98.4 F 97 22 132/70 92
07/07/25 07:00 07/07/25 07:00 07/07/25 07:00 07/07/25 07:00 07/07/25 07:00
I&O
07/06/25 07/07/25 07/08/25
06:59 06:59 06:59
Intake Total 740 / 740
Output Total 625 / 625
Balance 115 / 115
Review of Systems
-
History Source: Patient
All other systems: Reviewed and negative
--- NOTE | 2025-07-07 10:46 | W.PN.ONC ---
Today's Communication / Plan
-
short course of steroids started, d/w family at bedside
Impression
Impression
metastatic lung adenocarcinoma
brain mets s/p gamma knife
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
uncontrolled DM
Plan
Plan
He completed steroid taper on 07/02
Will give a couple days of Prednisone (20mg/d) in hopes of some clinical improvement
Cannot give Keytruda in hospital - will give as outpatient as soon as able
Continue abx, follow cultures
Subjective/Objective
Subjective/Objective
feels weak, coughing, poor appetite
Vital Signs:
Vital Signs
Temp Pulse Resp BP Pulse Ox
98.4 F 97 22 132/70 92
07/07/25 07:00 07/07/25 07:00 07/07/25 07:00 07/07/25 07:00 07/07/25 07:00
Lab Results:
Laboratory Data
WBC 9.7 10^3/uL (4.8-10.8) 07/06/25 05:13
Hgb 11.1 g/dL (13.0-18.0) L 07/06/25 05:13
Plt Count 209 10^3/uL (130-400) 07/06/25 05:13
eGFR > 60.00 07/07/25 07:20
Orders
Orders
Orders From Last 24 Hours
07/07/25 11:00
Prednisone [Deltasone] 20 mg PO DAILY
[2025-07-07] MEDS: DELTASONE 20 MG PO (11:03)
[2025-07-07] MEDS: SODIUM BICARBONATE 650 MG PO ×2 (11:03→15:49)
[2025-07-07] MEDS: ROCEPHIN 2000 MG IV (11:03)
[2025-07-07] MEDS: STERILE WATER FOR INJECTION 20 ML IV (11:04)
[2025-07-07] MEDS: FLUSH (NSS) 2 FLUSH IV (11:07)
[2025-07-07 12:16] LABS: Glucose - Point of Care 104 mg/dl (70-99)
[2025-07-07] MEDS: NOVOLOG FLEXPEN-LOW RESISTANCE SC (12:34)
[2025-07-07] MEDS: DUONEB 3 ML INH ×2 (13:38→19:54)
[2025-07-07] MEDS: LASIX 40 MG IV (14:16)
--- NOTE | 2025-07-07 16:32 | PTCARENOTE ---
Pt transferred to IMU room 3353, report given to MIS Grayson, O2 hooked to wall suction at 12L from the cansiter, telemetry pack from 3west removed from pt and brought back
[2025-07-07 16:36] LABS: Glucose - Point of Care 195 mg/dl (70-99)
--- NOTE | 2025-07-07 16:45 | PTCARENOTE ---
Received patient by bed from 3W. Patient visibly SOB, RR 35. Placed on 12L midflow, increased to 15L midflow d/t sats at 87%. Respiratory and MD at bedside and patient placed on hiflow, currently tolerating. All other VSS. Patient with wheezes and
rales bilaterally. and DIL at bedside. Patient with no complaints. Data Operations Manager to see patient. Patient and family oriented to room. Will continue to closely monitor.
[2025-07-07 16:51] LABS: B.E. -4.5 mmol/L; HCO3 17.8 mmol/L (21-28); O2 Saturation % 98.1 % (94-98); PCO2 25 mmHg (35-48); PO2 99 mmHg (83-108)
--- NOTE | 2025-07-07 16:52 | CON.PUL ---
Consultation
Consultation Request
Date/Time Consultation Requested: 07/07/2025
Date/Time Consultation Performed: 07/07/2025
Medical History
-
Chief Complaint: Shortness of breath
History of Present Illness:
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 S/p brain radiation, who presented to the hospital with shortness of breath and chills. Patient was noted to be
hypoxic in the emergency room in 80s and was placed on supplemental oxygen. Imaging was negative for any pulmonary embolism per was suggestive of interseptal thickening in the mid to lower lobes concerning for lymphangitic spread versus atypical
pneumonia versus pulmonary edema. Patient was admitted to the hospital and was started on supplemental oxygen, he also received diuretics as well as steroids along with ceftriaxone and Zithromax. Patient progressively has increasing oxygen
requirement and today became more hypoxic despite being on 15 L supplemental oxygen. Patient is being transferred to high flow nasal cannula and pulmonary consultation was requested for further input.
With his recent diagnosis of lung cancer, patient had brain MRI which was positive for metastatic lesions. PET CT scan also positive for metastatic lesion in colon, adrenal glands and osseous metastasis. [employer] ration sequencing negative for any
identifiable mutation and PD-L1 expression was positive at 95%. Oncology service has been on case and patient is scheduled to initiate palliative immunotherapy on 07/09/2025.
Past Medical History
Past Medical History: Reports Other (metastatic lung cancer, brain mets status post gamma knife radiation, likely distal ascending colonic metastasis, hypothyroidism, diabetes, hypertension, hyperlipidemia, GERD,)
Past Surgical History: Reports Other (Left total knee arthroplasty))
Social History
Tobacco: Former Smoker
Alcohol: None
Drug: None
Family History
Family History: Not pertinent
Allergies / Home Medications
Allergies
Allergy/AdvReac Type Severity Reaction Status Date / Time
No Known Allergies Allergy Verified 07/05/25 16:23
Home Medications
�Medication �Instructions �Recorded �Confirmed �Last Taken �Type
diltiazem HCl 360 mg 360 mg PO DAILY Heart Disease/BP 06/03/25 07/05/25 07/05/25 History
capsule,extended release 24 hr
hydrochlorothiazide 25 mg tablet 25 mg PO DAILY Blood Pressure ##0 06/03/25 07/05/25 07/05/25 History
levothyroxine 75 mcg tablet 75 mcg PO DAILY Thyroid ##0 06/03/25 07/05/25 07/05/25 History
(Synthroid)
losartan 50 mg tablet 50 mg PO BID Blood Pressure 06/03/25 07/05/25 07/05/25 History
rosuvastatin 10 mg tablet (Crestor) 10 mg PO QPM cholesterol ##0 06/03/25 07/05/25 07/04/25 History
spironolactone 50 mg tablet 50 mg PO DAILY Fluid Retention/BP 06/03/25 07/05/25 07/05/25 History
##0
travoprost 0.004 % eye drops 1 drp RIGHT EYE Q48H@1900 06/05/25 07/05/25 07/04/25 History
pantoprazole 40 mg tablet,delayed 40 mg PO DAILY #30 tabs 06/06/25 07/05/25 07/05/25 Rx
release
acetaminophen 500 mg tablet 1,000 mg PO Q6HPRN PRN mild pain 07/05/25 07/05/25 07/05/25 History
(Tylenol Extra Strength)
azithromycin 250 mg tablet 0 mg PO .COMPLEX 07/05/25 07/05/25 07/04/25 History
cholecalciferol (vitamin D3) 25 25 mcg PO DAILY 07/05/25 07/05/25 07/05/25 History
mcg (1,000 unit) tablet (Vitamin
D3)
cyanocobalamin (vitamin B-12) 1,000 mcg PO DAILY 07/05/25 07/05/25 07/05/25 History
1,000 mcg tablet
insulin glargine 100 unit/mL (3 10 unit SC HS 07/05/25 07/05/25 07/04/25 History
mL) subcutaneous pen (Lantus
Solostar U-100 Insulin)
omega 3-zmm-gxv-fish oil 1,000 mg 1 cap PO DAILY 07/05/25 07/05/25 07/05/25 History
(120 mg-180 mg) capsule (Fish Oil)
Review of Systems
-
Hematologic/Lymphatic: Other (All 14 systems reviewed and negative except as stated above in the history of present illness.)
Vitals / Labs / Diagnostic Testing
Vital Signs
Temp Pulse Resp BP Pulse Ox
98.0 F 108 36 140/81 91
07/07/25 15:00 07/07/25 16:30 07/07/25 16:30 07/07/25 16:23 07/07/25 16:30
Lab Data
07/06/25 05:13
07/07/25 07:20
Microbiology
07/06/25 18:28 Urine Legionella Urinary Antigen - Final
Negative for Legionella pneumophila Serogroup 1 antigen.
A negative result does not rule out the possiblity of
Legionella infection due to other serogroups or species of
Legionella. Clinical correlation is recommended.
07/06/25 18:28 Urine Streptococcus pneumoniae Antigen (M - Final
Negative for Streptococcus pneumoniae antigen.
A negative result does not exclude infection with
Streptococcus pneumoniae. Clinical correlation is
recommended.
07/05/25 16:59 Blood/Venous Blood Culture - Preliminary
No Growth in 24 hours- Final report to follow
07/05/25 16:59 Blood/Venous Blood Culture - Preliminary
No Growth in 24 hours- Final report to follow
07/05/25 16:59 Nasal Swab Influenza Types A & B (PAULINE) - Final
Negative for Influenza A & B, NAAT
Negative results must be combined with clinical observations
and patient history.
Nucleic Acid Amplification test (NAAT)performed on the
[employer] platform.
Diagnostic Testing:
Physical Exam
-
HEENT: Normocephalic
Cardiovascular: S1/S2
Respiratory: Rhonchi and Accessory Resp Muscle Use (Mildly increased work of breathing, improved after patient was placed on high flow nasal cannula.)
GI: Soft and Non Distended
Neurology: Awake and Alert
Skin: Warm
General: Comfortable
Assessment
-
#1. Acute severe hypoxic respiratory failure
- Recent CT-PE chest and PET-CT scan reviewed, suggestive of multiple metastatic lesions and lymphangitic spread. Patient does not appear volume loaded on exam and has fairly unremarkable echocardiogram. Atypical pneumonia is in differential
diagnosis and agree with continuing treatment with ceftriaxone and azithromycin as ordered. Patient was admitted to the hospital with hypoxia on 07/06, and has progressively increasing oxygen requirement noted, despite antibiotics and diuretics
along with prednisone.
- Agree with transitioning to high flow nasal cannula, currently on 50 L, 100% FiO2, saturating around 96%, respiratory rate 31-34. Work of breathing improved after being transitioned to high flow nasal cannula
- Stat ABG. Methylprednisolone 1 mg/kg, IV stat
- Influenza A, B, COVID-19 screen negative. Legionella and streptococcal pneumonia antigen negative. Blood cultures negative so far
- Start DuoNeb scheduled 4 times daily
- Discussed with patient's and patient at bedside. If further worsening noted, patient will require intubation and mechanical ventilation. Considering high likelihood of lymphangitic spread of advanced poorly differentiated adenocarcinoma
causing hypoxia, I explained to the patient and his that patient may have a difficult time coming off the ventilator and we may not be successful in extubating. Patient and family understand the risks involved and want to proceed with
intubation if patient develops further respiratory compromise
#2. Metastatic poorly differentiated adenocarcinoma lung.
- Patient has evidence of brain metastasis, s/p radiation, 1 session at [facility]
- PET scan also suggestive of adrenal gland osseous and sigmoid colon metastatic lesions
- Next generation sequencing negative, PD-L1 expression at 95%. Oncology service on case. Patient is scheduled for palliative immunotherapy beginning 07/09.
Other medical diagnoses:
- Hypertension
- Hypothyroidism
- Hyperlipidemia
- Diabetes mellitus
- Mild hyponatremia
DVT prophylaxis. Subcu Lovenox 40
Prognosis is poor.
Total time spent on this consultation/encounter _65___ minutes which includes review of history, physical exam, medications, laboratory data, personal review of imaging, extensive review of outpatient records, discussion with care team and
respiratory therapy.
Data:
CT-PE 06/2025: No CTA evidence for an acute pulmonary thromboembolism.
Extensive pulmonary metastatic disease.
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 Pulmonary edema or atypical pneumonia would be alternative considerations in the
appropriate clinical setting.
Mediastinal and bilateral hilar candi metastatic disease.
The extent of metastatic disease is more completely assessed on the outpatient PET/CT performed earlier in the same day.
PET-CT 06/2025: Numerous bilateral hypermetabolic metastatic pulmonary nodules/masses.
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
FDG avid metastatic hilar and mediastinal adenopathy.
Hypermetabolic right adrenal gland metastatic focus. No FDG avid hepatic metastatic lesion.
Hypermetabolic pancreatic mass, consistent with neoplasm.
Small metastatic mesenteric nodules with increased metabolic activity.
2 cm focal FDG avid sigmoid mass, consistent with neoplasm.
Small osseous metastatic lesions involving the lateral left superior pubic ramus and left posterior periacetabular ilium.
Brain MRI 06/2025: Several (approximately 4) enhancing intracranial brain masses at the ríos-white matter junctions with associated vasogenic edema, highly suspicious for metastases. No MR evidence for acute infarct or hemorrhage.
Lung biopsy 05/2025: Poorly differentiated invasive adenocarcinoma, NGS negative, PD-L1 expression 95%
ECHO 05/2025: 1. Normal left ventricular size, wall thickness and systolic function. Ejection fraction of 65-70%.
2. Aortic sclerosis without stenosis. Mild aortic regurgitation.
3. Mildly dilated proximal ascending aorta measures 4.0 cm.
4. Compared to 07/07/24: prior Asc aorta measurement was 4.2cm.
[2025-07-07 16:53] LABS: O2 Therapy %Oxygen/Room Air 15L
[2025-07-07] MEDS: DUONEB INH (17:08)
[2025-07-07] MEDS: CRESTOR 10 MG PO (17:50)
[2025-07-07] MEDS: NOVOLOG FLEXPEN-LOW RESISTANCE 1 UNITS SC (17:50)
[2025-07-07] MEDS: SOLU-MEDROL PF 60 MG IV (17:51)
[2025-07-07] MEDS: LOVENOX 40 MG SC (17:52)
[2025-07-07 21:50] LABS: Glucose - Point of Care 348 mg/dl (70-99)
[2025-07-07] MEDS: LANTUS 0.1 UNITS SC (22:39)
[2025-07-07] MEDS: NOVOLOG FLEXPEN 6 UNITS SC (22:39)
[2025-07-08] VITALS (14 sets, daily range): BP systolic 101–153; BP diastolic 59–117
--- NOTE | 2025-07-08 02:49 | PTCARENOTE ---
pt incont of BM. SaO2 desat to 80s while turning in bed. Recovered to 96% on HFNC 50L 90% once HOB elevated. VSS. Remains tachypneic, RR low 30s. Stable. Pt resting comfortably in bed at this time. Care ongoing.
[2025-07-08] MEDS: SYNTHROID 75 MCG PO (05:05)
[2025-07-08 05:39] LABS: Hematocrit 30.8 % (39.0-52.0); Hemoglobin 10.5 g/dL (13.0-18.0); Mean Corp Hgb Conc. 34.1 g/dL (33.0-37.0); Mean Corpuscular Volume 86.3 fL (80.0-94.0); Nucleated Red Blood Cells % 0 % (-); Platelet Count 268 10^3/uL (130-400); Red Cell Dist. Width 13.8 % (11.5-14.5)
[2025-07-08 06:40] LABS: Blood Urea Nitrogen 35 mg/dl (9-20); Calcium 8.3 mg/dl (8.4-10.2); Carbon Dioxide 20 mmol/L (22-30); Chloride 106 mmol/L (98-107); Estimated Creatinine Clearance 52 ml/min; Glucose 245 mg/dl (70-99); Potassium 4.2 mmol/L (3.5-5.1); Sodium 134 mmol/L (135-145); eGFR > 60.00
[2025-07-08] MEDS: DUONEB 3 ML INH ×4 (07:15→20:13)
--- NOTE | 2025-07-08 08:10 | W.PN.HOSP.TC ---
Addendum entered and electronically signed by Apollo Liu DO 07/08/25 13:22:
Patient developed new onset rapid atrial fibrillation. No known history of atrial fibrillation. Discussed with family.
Oral Cardizem resumed today, IV Cardizem given as a bolus.
Cardiology consulted. He is known to Dr. Vallejo.
Suspect respiratory failure induced rapid atrial fibrillation.
TSH 4.9, free T4 1.4.
Original Note:
Today's Communication/Plan
-
Continue supportive care
Adjust insulin
Diltiazem
Assessment / Plan
Assessment / Plan
Gen-AAOx3, NAD
HEENT-NC, AT, anicteric, clear oral mm
Neck-supple
CV-reg, no M, +S1/S2
Lungs-bilateral rales, mild end expiratory wheezing bilaterally
Abd-soft, NT, ND
Ext-no edema
Musculoskeletal-no cyanosis, clubbing
Skin-warm and dry
Neuro-grossly non-focal
Psych-calm, cooperative
Acute hypoxic respiratory failure -suspect multifactorial etiology including advanced lung cancer, cannot rule out underlying community-acquired pneumonia. Pulmonary edema seems unlikely, did not respond to a dose of IV Lasix and BNP is not
significantly elevated.
CT chest on admission negative for pulmonary embolism. Does show extensive pulmonary metastatic disease, possible lymphangitic carcinomatosis.
Fairly rapid deterioration of respiratory failure on 07/07 requiring transfer to IMU initiation of high flow oxygen.
ABG shows pO2 of 99, pCO2 25, pH 7.46, drawn immediately after placement on high flow oxygen. Respiratory alkalosis due to tachypnea and increased work of breathing.
Started on IV steroids 07/07 by pulmonary.
Continue nebs.
Unfortunately, overall prognosis remains poor as I believe malignancy is the driving factor behind his respiratory failure. Family understands that if he requires a ventilator his prognosis will be even worse, unlikely he would be successfully
extubated.
Current high flow nasal cannula settings are 50 L, 85% FiO2, pulse ox 95%.
Sepsis -possibly due to community-acquired pneumonia. Presentation with fever, leukocytosis, tachycardia. Continue ceftriaxone, azithromycin.
Blood cultures negative so far. COVID and influenza negative.
Given that he has had no improvement with antibiotics, I suspect malignancy is the primary driving factor for his presentation with respiratory failure.
Generalized weakness -progressing over the past few weeks. Likely multifactorial etiology including metastatic lung cancer, possible pneumonia, volume depletion with hypotension.
Hydrated with IV fluids, now off.
Near syncopal episode at home noted by family.
I would not put any clinical weight into mild troponin elevation noted on admission. Subsequent troponins have been negative. Clinically doubt ACS.
Hyponatremia -suspect hypovolemic given presentation with hypotension, prerenal azotemia, near syncope. Sodium improving, 134.
Permanently discontinue hydrochlorothiazide.
Low serum bicarbonate is in compensation to his respiratory alkalosis.
Metastatic pulmonary adenocarcinoma -under the care of [facility], Dr. Martin. Cerebral mets noted on brain MRI 06/03/2025. Scheduled for immunotherapy to start on Wednesday. Had gamma knife radiation to the brain recently, completed a course
of steroids this week.
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 Hypermetabolic pancreatic mass consistent with neoplasm. Sigmoid mass consistent with neoplasm.
Scheduled to begin immunotherapy as an outpatient this week.
DM2 with hyperglycemia -hemoglobin A1c 8.9%. Steroid-induced hyperglycemia, glucose 254 this morning, 348 last night.
At home he is on Lantus 10 units at bedtime.
In the hospital he remains on Lantus 10 units at bedtime, aspart low resistance scale.
Increase Lantus to 15 units at bedtime, add aspart with meals. Continue low resistance corrective scale.
Essential hypertension -Home meds have been on hold for hypotension but blood pressure and heart rate now elevated.
Was on diltiazem 360 mg daily, hydrochlorothiazide 25 mg daily, losartan 50 mg twice daily, spironolactone 50 mg daily prior to admission.
Will resume diltiazem at lower dose. Keep other meds on hold for now.
Hypothyroidism -continue levothyroxine. TSH 4.9, free T4 1.4.
Chronic anemia -hemoglobin at baseline.
Hyperlipidemia -rosuvastatin.
Full code
Anticipated Discharge: > 48 hours
Subjective/Interval History
-
Date of Service: July 08, 2025
Patient seen and examined. Complaining of some shortness of breath. Denies cough.
Objective Data
-
Labs:
Laboratory Results
07/08/25
05:15
WBC 9.1
Hgb 10.5 L
Hct 30.8 L
Plt Count 268 D
Sodium 134 L
Potassium 4.2
Chloride 106
Carbon Dioxide 20 L
BUN 35 H
Creatinine 1.0
Glucose 245 H
Calcium 8.3 L
Vital Signs:
Vital Signs
Temp Pulse Resp BP Pulse Ox
98.0 F 79 28 128/69 95
07/08/25 03:40 07/08/25 07:18 07/08/25 07:18 07/08/25 06:00 07/08/25 07:18
I&O
07/07/25 07/08/25 07/09/25
06:59 06:59 06:59
Intake Total 740 / 740 240 / 240
Output Total 625 / 625 250 / 250
Balance 115 / 115 -10 / -10
Review of Systems
-
History Source: Patient
All other systems: Reviewed and negative
[2025-07-08 08:16] LABS: Glucose - Point of Care 254 mg/dl (70-99)
[2025-07-08] MEDS: NOVOLOG FLEXPEN-LOW RESISTANCE 3 UNITS SC (08:37)
[2025-07-08] MEDS: NOVOLOG FLEXPEN 5 UNITS SC ×3 (08:40→18:01)
[2025-07-08] MEDS: SOLU-MEDROL PF 60 MG IV (08:40)
--- NOTE | 2025-07-08 09:05 | W.PN.PUL3 ---
Today's Communication / Plan
-
- Continue high flow nasal cannula
- At risk of requiring intubation and mechanical ventilation, poor prognosis
- Continue goals of care discussions
Assessment
-
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 S/p brain radiation, who presented to the hospital with shortness of breath and chills. Patient was noted to be
hypoxic in the emergency room in 80s and was placed on supplemental oxygen. Imaging was negative for any pulmonary embolism per was suggestive of interseptal thickening in the mid to lower lobes concerning for lymphangitic spread versus atypical
pneumonia versus pulmonary edema. Patient was admitted to the hospital and was started on supplemental oxygen, he also received diuretics as well as steroids along with ceftriaxone and Zithromax. Patient progressively has increasing oxygen
requirement and today became more hypoxic despite being on 15 L supplemental oxygen. Patient is being transferred to high flow nasal cannula and pulmonary consultation was requested for further input.
With his recent diagnosis of lung cancer, patient had brain MRI which was positive for metastatic lesions. PET CT scan also positive for metastatic lesion in colon, adrenal glands and osseous metastasis. [employer] ration sequencing negative for any
identifiable mutation and PD-L1 expression was positive at 95%. Oncology service has been on case and patient is scheduled to initiate palliative immunotherapy on 07/09/2025.
#1. Acute severe hypoxic respiratory failure
- Recent CT-PE chest and PET-CT scan reviewed, suggestive of multiple metastatic lesions and lymphangitic spread. Patient does not appear volume loaded on exam and has fairly unremarkable echocardiogram. Atypical pneumonia is in differential
diagnosis and agree with continuing treatment with ceftriaxone and azithromycin as ordered. Patient was admitted to the hospital with hypoxia on 07/06, and has progressively increasing oxygen requirement noted, despite antibiotics and diuretics
along with prednisone.
- Continue high flow nasal cannula, currently on 50 L, 85% FiO2, saturating around 96%, respiratory rate 31-34. Work of breathing marginally improved after being transitioned to high flow nasal cannula. Desaturates with minimal activity
- Continue Methylprednisolone 1 mg/kg, IV Daily. Continue Duoneb qid. Continue Azithromycin and Ceftriaxone.
- Influenza A, B, COVID-19 screen negative. Legionella and streptococcal pneumonia antigen negative. Blood cultures negative so far
- Discussed with patient's , daughter in law and patient at bedside. If further worsening noted, patient will require intubation and mechanical ventilation. Considering high likelihood of lymphangitic spread of advanced poorly differentiated
adenocarcinoma causing hypoxia, I explained to the patient and his that patient may have a difficult time coming off the ventilator and we may not be successful in extubating. Patient and family understand the risks involved and want to
proceed with intubation if patient develops further respiratory compromise
#2. Metastatic poorly differentiated adenocarcinoma lung.
- Patient has evidence of brain metastasis, s/p radiation, 1 session at [facility]
- PET scan also suggestive of adrenal gland osseous and sigmoid colon metastatic lesions
- Next generation sequencing negative, PD-L1 expression at 95%. Oncology service on case. Patient is scheduled for palliative immunotherapy beginning 07/09.
Other medical diagnoses:
- Hypertension
- Hypothyroidism
- Hyperlipidemia
- Diabetes mellitus
- Mild hyponatremia
DVT prophylaxis. Subcu Lovenox 40
Prognosis is poor.
Total time spent on this consultation/encounter _45___ minutes which includes review of history, physical exam, medications, laboratory data, personal review of imaging, extensive review of outpatient records, discussion with care team and
respiratory therapy.
Discussed with oncology service
Data:
CT-PE 06/2025: No CTA evidence for an acute pulmonary thromboembolism.
Extensive pulmonary metastatic disease.
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 Pulmonary edema or atypical pneumonia would be alternative considerations in the
appropriate clinical setting.
Mediastinal and bilateral hilar candi metastatic disease.
The extent of metastatic disease is more completely assessed on the outpatient PET/CT performed earlier in the same day.
PET-CT 06/2025: Numerous bilateral hypermetabolic metastatic pulmonary nodules/masses.
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
FDG avid metastatic hilar and mediastinal adenopathy.
Hypermetabolic right adrenal gland metastatic focus. No FDG avid hepatic metastatic lesion.
Hypermetabolic pancreatic mass, consistent with neoplasm.
Small metastatic mesenteric nodules with increased metabolic activity.
2 cm focal FDG avid sigmoid mass, consistent with neoplasm.
Small osseous metastatic lesions involving the lateral left superior pubic ramus and left posterior periacetabular ilium.
Brain MRI 06/2025: Several (approximately 4) enhancing intracranial brain masses at the ríos-white matter junctions with associated vasogenic edema, highly suspicious for metastases. No MR evidence for acute infarct or hemorrhage.
Lung biopsy 05/2025: Poorly differentiated invasive adenocarcinoma, NGS negative, PD-L1 expression 95%
ECHO 05/2025: 1. Normal left ventricular size, wall thickness and systolic function. Ejection fraction of 65-70%.
2. Aortic sclerosis without stenosis. Mild aortic regurgitation.
3. Mildly dilated proximal ascending aorta measures 4.0 cm.
4. Compared to 07/07/24: prior Asc aorta measurement was 4.2cm.
Subjective Data
-
Date of Service:
Date of Service: July 08, 2025
Subjective:
Patient currently on high flow nasal cannula, desaturates with activity
Review of Systems
Genitourinary: Other (No new symptoms reported. Essentially unchanged sense of dyspnea)
Objective Data
Data Reviewed
Vital Signs / I&O / Oxygen:
Vital Signs
Temp Pulse Resp BP Pulse Ox
98.7 F 79 28 128/69 95
07/08/25 07:00 07/08/25 07:18 07/08/25 07:18 07/08/25 06:00 07/08/25 07:18
Intake and Output
07/07/25 07/08/25 07/09/25
06:59 06:59 06:59
Intake Total 740 / 740 240 / 240
Output Total 625 / 625 250 / 250
Balance 115 / 115 -10 / -10
SaO2 95
Nasal Cannula flow liters per 50
minute
Physical Exam
General: Comfortable
HEENT: Normocephalic
Cardiovascular: S1-S2
Respiratory: Rhonchi and Other (Respiratory rate hanging around 30 to 33/min)
GI: Soft and Non Distended
Neurology: Awake, Alert and Oriented
Skin: Warm
Labs/Micro/Reports
Lab Data
07/08/25 05:15
07/08/25 05:15
Laboratory Results
07/07/25
16:40
pH 7.46 H
pCO2 25 L
pO2 99
HCO3 17.8 L
O2 Delivery Level %oxygen/room air 15l
Microbiology
07/05/25 16:59 Blood/Venous Blood Culture - Preliminary
No Growth in 48 hours- Final report to follow
07/05/25 16:59 Blood/Venous Blood Culture - Preliminary
No Growth in 48 hours- Final report to follow
07/06/25 18:28 Urine Legionella Urinary Antigen - Final
Negative for Legionella pneumophila Serogroup 1 antigen.
A negative result does not rule out the possiblity of
Legionella infection due to other serogroups or species of
Legionella. Clinical correlation is recommended.
07/06/25 18:28 Urine Streptococcus pneumoniae Antigen (M - Final
Negative for Streptococcus pneumoniae antigen.
A negative result does not exclude infection with
Streptococcus pneumoniae. Clinical correlation is
recommended.
07/05/25 16:59 Nasal Swab Influenza Types A & B (PAULINE) - Final
Negative for Influenza A & B, NAAT
Negative results must be combined with clinical observations
and patient history.
Nucleic Acid Amplification test (NAAT)performed on the
[employer] platform.
--- NOTE | 2025-07-08 09:52 | W.PN.ONC ---
Today's Communication / Plan
-
Continue high-dose steroids, started 07/07 w/ progression of respiratory distress and transfer to IMU
Empiric antibiotics
O2 support per pulmonary
d/w and DIL - inpatient chemo or immunotherapy is not appropriate or safe/effective in this setting. (immunotherapy won't work in the setting of immune suppression from steroids, and his PS is too poor for chemotherapy). Continue supportive
care -- if respiratory status improves, would re-consider outpatient treatment.
Discussed code status. If intubated, it's unlikely that he would recover enough for extubation. DIL expressed understanding, though still struggling with decisions. FULL CODE for now.
Will continue to follow
Impression
Impression
hypoxic respiratory failure
metastatic lung adenocarcinoma
brain mets s/p gamma knife
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
uncontrolled DM
Plan
Plan
Continue high-dose steroids, started 07/07 w/ progression of respiratory distress and transfer to IMU
Empiric antibiotics
O2 support per pulmonary
d/w and DIL - inpatient chemo or immunotherapy is not appropriate or safe/effective in this setting. (immunotherapy won't work in the setting of immune suppression from steroids, and his PS is too poor for chemotherapy). Continue supportive
care -- if respiratory status improves, would re-consider outpatient treatment.
Discussed code status. If intubated, it's unlikely that he would recover enough for extubation. DIL expressed understanding, though still struggling with decisions. FULL CODE for now.
Will continue to follow
Subjective/Objective
Subjective/Objective
transferred to IMU due to increased O2 needs. Started on high dose steroids
still w/ dyspnea, though feels a little better
awaiting breakfast tray
Vital Signs:
Vital Signs
Temp Pulse Resp BP Pulse Ox
98.7 F 102 28 151/76 94
07/08/25 07:00 07/08/25 08:00 07/08/25 08:00 07/08/25 08:00 07/08/25 08:00
Lab Results:
Laboratory Data
WBC 9.1 10^3/uL (4.8-10.8) 07/08/25 05:15
Hgb 10.5 g/dL (13.0-18.0) L 07/08/25 05:15
Plt Count 268 10^3/uL (130-400) D 07/08/25 05:15
eGFR > 60.00 07/08/25 05:15
Orders
Orders
Orders From Last 24 Hours
07/07/25 11:00
Prednisone [Deltasone] 20 mg PO DAILY
[2025-07-08] MEDS: VITAMIN D3 (cholecalciferol) 25 MCG PO (11:06)
[2025-07-08] MEDS: ZITHROMAX 500 MG PO (11:06)
[2025-07-08] MEDS: VITAMIN B-12 1000 MCG PO (11:06)
[2025-07-08] MEDS: PROTONIX 40 MG PO (11:06)
[2025-07-08] MEDS: ROCEPHIN 2000 MG IV (11:07)
[2025-07-08] MEDS: STERILE WATER FOR INJECTION 20 ML IV (11:07)
[2025-07-08] MEDS: CARDIZEM 30 MG PO (11:20)
--- NOTE | 2025-07-08 11:20 | PTCARENOTE ---
heart rate elevating to above 100; transiently to 115 - 120 at rest. Sinus tachycardia. Diltiazem 30 mg QID added this am; gave scheduled 1300 first dose now. B/p 144/76. Continuing to monitor
[2025-07-08] MEDS: CARDIZEM 10 MG IV (12:05)
--- NOTE | 2025-07-08 12:26 | PTCARENOTE ---
pt's heart rate now 130-150's and sustaining; A-fib rhythm on telemetry. EKG completed and verifies A-fib rhythm. Dr. Liu notified; orders for cardizem 10 mg IV now plus additional 300 mg oral dose. IV dose given at 1208; b/p stable. Pt agrees
to having felt mid-sternal 'chest pressure' 'a while ago' which is now resolved. Resp even and non-labored, resp rate 28-31. Pox 93-95% on HFNC 50L/85% FiO2. Heart rate remains 120-140's bpm. Will administer additional oral dose when available from
pharmacy and continue to monitor
[2025-07-08] MEDS: CARDIZEM CD 300 MG PO (13:13)
[2025-07-08] MEDS: NOVOLOG FLEXPEN-LOW RESISTANCE 5 UNITS SC ×2 (13:21→18:00)
--- NOTE | 2025-07-08 13:35 | CM ---
CM reviewed chart, care ongoing.
Patient remains on 50L HFNC.
Ongoing goals of care conversation.
CM will continue to follow for all discharge planning.
Plan; ongoing goals of care conversation with family, plan TBD
--- NOTE | 2025-07-08 13:53 | CON.CAR ---
Consultation
Consultation Request
Date/Time Consultation Requested: 07/08/2025 at 1345
Date/Time Consultation Performed: 07/08/2025 at 1354
Requesting Provider: Dr. Liu
Performing Provider: Dr. Vallejo
Reason for Consultation: A-fib
Medical History
-
History of Present Illness:
Primary last repairer Dr. Sanchez
78-year-old male with a history of metastatic adenocarcinoma of the lung with brain mets, status post gamma knife 06/19/2025, diabetes, hypertension, hypercholesterolemia, mildly dilated aortic root 4.2 cm, diabetes. Presented to the hospital with
shortness of breath. CT negative for PTE and there was interseptal thickening in the mid to lower lobes concerning for lymphangitic spread versus atypical pneumonia versus pulmonary edema. Patient mated to the hospital service with pulmonary and
oncology consultations. He has been treated with antibiotics, steroids and diuretics. Patient with increased O2 requirements and is on high flow O2. Consult for development of A-fib.
.
Apparently patient had gamma knife treatment 06/19/2025 and was maintained on steroids and then after stopping steroids had increased shortness of breath they noticed that he was having shortness of breath and variable oximetry on the day he went to
get his PET scan and then developed a worsening shortness of breath prompting him to go to the ER. No complaints of chest pain no other palpitations or heart racing he states in the hospital he sometimes can feel his heart beating a little bit
faster.
.
Patient was in sinus rhythm on admission and then converted to atrial fibrillation with accelerated ventricular response. Patient is normally on Cardizem as an outpatient which
Echocardiogram 05/2025 normal ventricular function ejection fraction 65-70. Aortic sclerosis without stenosis. Mild aortic regurgitation mildly dilated ascending aorta 4.[address] this admission
Extensive pulmonary metastatic disease.
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 Pulmonary edema or atypical pneumonia would be alternative considerations in the
appropriate clinical setting.
ECG 07/05/2025 sinus rhythm with first-degree AV block
ECG 07/08/2025 at 1156 atrial fibrillation with accelerated ventricular response heart rate [address] and T wave abnormality
Mediastinal and bilateral hilar candi metastatic disease.
Past medical history
- Poorly differentiated metastatic adenocarcinoma of the lung with brain mets. Status post gamma knife and radiation andbrain radiation.
-Hypertension
-Hypercholesterolemia
-Dilated aortic root
-Diabetes
-Thyroid disease/hypothyroidism
.
Surgical history
left hip replacement 07/17/2024
Social history previous history of smoking
Family history father lung cancer
Past Medical History
Past Medical History: Other (As above)
Social History
Tobacco: Former Smoker
Family History
Family History: Other (Family history of lung cancer)
Allergies / Home Medications
Allergy/AdvReac Type Severity Reaction Status Date / Time
No Known Allergies Allergy Verified 07/05/25 16:23
�Medication �Instructions �Recorded �Confirmed �Type
diltiazem HCl 360 mg 360 mg PO DAILY Heart Disease/BP 06/03/25 07/05/25 History
capsule,extended release 24 hr
hydrochlorothiazide 25 mg tablet 25 mg PO DAILY Blood Pressure ##0 06/03/25 07/05/25 History
levothyroxine 75 mcg tablet 75 mcg PO DAILY Thyroid ##0 06/03/25 07/05/25 History
(Synthroid)
losartan 50 mg tablet 50 mg PO BID Blood Pressure 06/03/25 07/05/25 History
rosuvastatin 10 mg tablet (Crestor) 10 mg PO QPM cholesterol ##0 06/03/25 07/05/25 History
spironolactone 50 mg tablet 50 mg PO DAILY Fluid Retention/BP 06/03/25 07/05/25 History
##0
travoprost 0.004 % eye drops 1 drp RIGHT EYE Q48H@1900 06/05/25 07/05/25 History
pantoprazole 40 mg tablet,delayed 40 mg PO DAILY #30 tabs 06/06/25 07/05/25 Rx
release
acetaminophen 500 mg tablet 1,000 mg PO Q6HPRN PRN mild pain 07/05/25 07/05/25 History
(Tylenol Extra Strength)
azithromycin 250 mg tablet 0 mg PO .COMPLEX 07/05/25 07/05/25 History
cholecalciferol (vitamin D3) 25 25 mcg PO DAILY 07/05/25 07/05/25 History
mcg (1,000 unit) tablet (Vitamin
D3)
cyanocobalamin (vitamin B-12) 1,000 mcg PO DAILY 07/05/25 07/05/25 History
1,000 mcg tablet
insulin glargine 100 unit/mL (3 10 unit SC HS 07/05/25 07/05/25 History
mL) subcutaneous pen (Lantus
Solostar U-100 Insulin)
omega 8-agx-zjj-fish oil 1,000 mg 1 cap PO DAILY 07/05/25 07/05/25 History
(120 mg-180 mg) capsule (Fish Oil)
Review of Systems
-
All other systems: Negative unless noted
Physical Exam
Vital Signs
Temp Pulse Resp BP Pulse Ox
98.7 F 131 27 134/72 96
07/08/25 07:00 07/08/25 13:13 07/08/25 12:00 07/08/25 13:13 07/08/25 12:00
Lab Results
07/08/25 05:15
07/08/25 05:15
Troponin I Cancelled 07/06/25 17:00
Ccj-Z-Pdbbobaqvar Pept 626 pg/ml 07/07/25 07:20
Physical Exam
General: Other (Patient is on high flow O2)
HEENT: Normocephalic
Cardiac: Irregular Rhythm
Rectal: Brown and Other (Nontender nondistended no mass)
Musculoskeletal: No Clubbing, No Cyanosis and No Edema
Neuro: Awake and Alert
Psych: Calm
Impression / Plan
-
A-fib with RVR
- New diagnosis
- [id number] (age greater than 75, hypertension, diabetes)
-Patient is on Cardizem CD 360 at home. Medication had been held and was just restarted about an hour ago. Appears patient's had improvement in heart rates previously in the 140s now in the 110s to 125. Would continue to see response to oral
Cardizem to 30 given. Considering patient's level of illness and respiratory issues would allow for him to be mildly tachycardic. However if his rates are persistently higher in the 130s then I would consider using IV Cardizem.
-Does not appear to be a good candidate for anticoagulation with brain mets and recent gamma knife treatment. Continue with rate control.
.
First-degree AV block. Noted on ECG earlier this admission. No bradycardia or long pauses. Will need to watch rates when he converts back to sinus.
.
Respiratory failure
-Feels better now than when presenting on admission but still remains on high flow O2
-Patient with underlying lung cancer with worsening shortness of breath. Multiple factors may contribute. Including metastatic lung disease with possible lymphangitic spread, possible underlying COPD possible atypical pneumonia. Difficult to
entirely exclude a component of heart failure. Patient has already received diuretic yesterday. Recent echo with normal left ventricular function. Will not repeat at this time
-Continue additional optimization of respiratory status as directed by disbursing agent and treatment of lung cancer as directed by oncology
-Will continue to assess need for additional diuretic
Lung cancer. Adenocarcinoma with brain mets. Patient's post gamma 06/19/2025. Based on CT as well as disbursing agent assessment there is concern for lymphogenic spread. Management as directed by pulmonary and oncology
.
Anemia
-Hemoglobin 10.5. Hemoglobin was 14 on 06/15/2025. 12.1 on admission
Hypertension. Monitor with therapy above
Hypercholesterolemia -continue rosuvastatin
Diabetes. Management as directed by hospitalist
Thyroid disease. Patient on levothyroxine. Treatment directed by hospitalist
Data Reviewed
-
EKG: Report Reviewed by me and Discussed with Patient (Echo reviewed by me)
Radiology: Report Reviewed by me
Medical Tests (Nuc Med, Echo etc): Report Reviewed by me
Labs: Labs Reviewed by me
--- NOTE | 2025-07-08 14:20 | PTCARENOTE ---
additional oral cardizem 300 mg given 1330. Pt's heart rate now 1 teens to 120. Remains in A-fib rhythm. B/p 108/77. No further complaints of chest pain or pressure. Cardiology consulted. Continuing to monitor
[2025-07-08 17:45] LABS: Glucose - Point of Care 362 mg/dl (70-99)
[2025-07-08] MEDS: LOVENOX 40 MG SC (17:59)
[2025-07-08] MEDS: CRESTOR 10 MG PO (18:00)
[2025-07-08] MEDS: LANTUS 0.15 UNITS SC (22:36)
[2025-07-08] MEDS: XALATAN OPHTHALMIC SOLUTION 1 DROP RIGHT EYE (22:37)
[2025-07-08 22:51] LABS: Glucose - Point of Care 345 mg/dl (70-99)
[2025-07-08] MEDS: NOVOLOG FLEXPEN 7 UNITS SC (23:19)
[2025-07-09] VITALS (14 sets, daily range): BP systolic 102–131; BP diastolic 44–75; PULSE 105–120; O2SAT 92
--- NOTE | 2025-07-09 04:10 | PTCARENOTE ---
Pt aaox3, able to make needs known. Remains on HFNC 50L 85%, SaO2 93%. Tachypneic with RR in upper 20s. Overall WOB improved compared to previous night. AFib on monitor with HR in 80-90s. Lungs with wheezes and rhonchi. VSS at this time. Pt resting
comfortably in bed. Care ongoing.
[2025-07-09] MEDS: SYNTHROID 75 MCG PO (05:04)
[2025-07-09 05:52] LABS: Blood Urea Nitrogen 48 mg/dl (9-20); Calcium 9.2 mg/dl (8.4-10.2); Carbon Dioxide 19 mmol/L (22-30); Chloride 109 mmol/L (98-107); Estimated Creatinine Clearance 58 ml/min; Glucose 190 mg/dl (70-99); Potassium 4.0 mmol/L (3.5-5.1); Sodium 134 mmol/L (135-145); eGFR > 60.00
[2025-07-09] MEDS: DUONEB 3 ML INH ×4 (07:20→19:31)
[2025-07-09 07:43] LABS: Glucose - Point of Care 208 mg/dl (70-99)
--- NOTE | 2025-07-09 08:21 | W.PN.ONC2 ---
Today's Communication / Plan
-
Continue supportive care per primary service
DIL and at bedside during visit provided updates and questions answered
Impression
Impression
hypoxic respiratory failure
metastatic lung adenocarcinoma
brain mets s/p gamma knife
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
uncontrolled DM
Plan
Plan
Continue high-dose steroids, started 07/07 w/ progression of respiratory distress and transfer to IMU
Empiric antibiotics
O2 support per pulmonary
inpatient chemo or immunotherapy is not appropriate or safe/effective in this setting. (immunotherapy won't work in the setting of immune suppression from steroids, and his PS is too poor for chemotherapy). Continue supportive care -- if respiratory
status improves, would re-consider outpatient treatment.
Subjective/Objective
Subjective
Afebrile, high flow
good appetite
Vital Signs:
Vital Signs
Temp Pulse Resp BP Pulse Ox
97.5 F 81 23 120/56 96
07/09/25 07:35 07/09/25 07:24 07/09/25 07:24 07/09/25 06:00 07/09/25 07:43
Lab Results:
Laboratory Data
WBC 9.1 10^3/uL (4.8-10.8) 07/08/25 05:15
Hgb 10.5 g/dL (13.0-18.0) L 07/08/25 05:15
Plt Count 268 10^3/uL (130-400) D 07/08/25 05:15
eGFR > 60.00 07/09/25 05:15
Physical Exam
HEENT: Moist Mucous Membranes; No Jaundice
Pulmonary: Other (HHF)
GI: Soft
Extremities: Pulses Present
[2025-07-09] MEDS: SOLU-MEDROL PF 60 MG IV (08:49)
[2025-07-09] MEDS: NOVOLOG FLEXPEN 5 UNITS SC ×3 (08:49→18:03)
[2025-07-09] MEDS: NOVOLOG FLEXPEN-LOW RESISTANCE 2 UNITS SC (08:49)
[2025-07-09] MEDS: ZITHROMAX 500 MG PO (08:50)
[2025-07-09] MEDS: VITAMIN B-12 1000 MCG PO (08:50)
[2025-07-09] MEDS: VITAMIN D3 (cholecalciferol) 25 MCG PO (08:50)
[2025-07-09] MEDS: PROTONIX 40 MG PO (08:50)
[2025-07-09] MEDS: CARDIZEM CD 360 MG PO (08:50)
[2025-07-09 09:16] LABS: Glucose - Point of Care 395 mg/dl (70-99)
--- NOTE | 2025-07-09 10:16 | W.PN.PUL3 ---
Today's Communication / Plan
-
Continue with current care
7 days of antibiotics
IV [id number] can start tapering the next 24 hours. No meaningful clinical improvement
Nebulizer for secretion clearance
Heart rate control per cardiology
Continue oxygen supplementation to maintain pulse ox above 90%- currently 50% 40LPM HFO
Poor prognosis
Assessment
-
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 S/p brain radiation, who presented to the hospital with shortness of breath and chills. Patient was noted to be
hypoxic in the emergency room in 80s and was placed on supplemental oxygen. Imaging was negative for any pulmonary embolism per was suggestive of interseptal thickening in the mid to lower lobes concerning for lymphangitic spread versus atypical
pneumonia versus pulmonary edema. Patient was admitted to the hospital and was started on supplemental oxygen, he also received diuretics as well as steroids along with ceftriaxone and Zithromax. Patient progressively has increasing oxygen
requirement and today became more hypoxic despite being on 15 L supplemental oxygen. Patient is being transferred to high flow nasal cannula and pulmonary consultation was requested for further input.
With his recent diagnosis of lung cancer, patient had brain MRI which was positive for metastatic lesions. PET CT scan also positive for metastatic lesion in colon, adrenal glands and osseous metastasis. [employer] ration sequencing negative for any
identifiable mutation and PD-L1 expression was positive at 95%. Oncology service has been on case and patient is scheduled to initiate palliative immunotherapy on 07/09/2025.
#1. Acute severe hypoxic respiratory failure
- Recent CT-PE chest and PET-CT scan reviewed, suggestive of multiple metastatic lesions and lymphangitic spread.
Patient does not appear volume loaded on exam and has fairly unremarkable echocardiogram.
Atypical pneumonia is in differential diagnosis and agree with continuing treatment with ceftriaxone and azithromycin as ordered-with negative cultures complete total 7 days.
Patient was admitted to the hospital with hypoxia on 07/06, and has progressively increasing oxygen requirement noted, despite antibiotics and diuretics along with prednisone.
- Continue high flow nasal cannula, currently on 50 L, 85% FiO2, saturating around 96%, respiratory rate 31-34. Work of breathing marginally improved after being transitioned to high flow nasal cannula. Desaturates with minimal activity
- Continue Methylprednisolone 1 mg/kg, IV Sunni-for now, no significant clinical improvement will consider tapering down in the next 24 hours.
- Continue Duoneb qid- to aid with secretion clearance.
- Influenza A, B, COVID-19 screen negative. Legionella and streptococcal pneumonia antigen negative. Blood cultures negative so far.
-If this is lymphangitic spread unlikely to improve-oncology correspondence reviewed-prognosis guarded. At this point all therapies on hold given clinical situation.
- Multiple Discussions. with patient's , daughter in law and patient at bedside. If further worsening noted, patient will require intubation and mechanical ventilation. Considering high likelihood of lymphangitic spread of advanced poorly
differentiated adenocarcinoma causing hypoxia, I explained to the patient and his that patient may have a difficult time coming off the ventilator and we may not be successful in extubating.
Patient and family understand the risks involved and want to proceed with intubation if patient develops further respiratory compromise
#2. Metastatic poorly differentiated adenocarcinoma lung-metastatic to brain, contralateral lung and others.
- Patient has evidence of brain metastasis, s/p radiation, 1 session at [facility]
- PET scan also suggestive of adrenal gland osseous and sigmoid colon metastatic lesions
- Next generation sequencing negative, PD-L1 expression at 95%. Oncology service on case. Patient is scheduled for palliative immunotherapy per oncology notes-currently on hold .
-
#3. Rapid atrial fibrillation-per cardiology
- Not a candidate for anticoagulation
Other medical diagnoses:
- Hypertension
- Hypothyroidism
- Hyperlipidemia
- Diabetes mellitus
- Mild hyponatremia
DVT prophylaxis. Subcu Lovenox 40
Prognosis is poor.
Total time spent on this consultation/encounter _44___ minutes which includes review of history, physical exam, medications, laboratory data, personal review of imaging, extensive review of outpatient records, discussion with care team and
respiratory therapy.
Discussed with oncology service
Data:
CT-PE 06/2025: No CTA evidence for an acute pulmonary thromboembolism.
Extensive pulmonary metastatic disease.
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 Pulmonary edema or atypical pneumonia would be alternative considerations in the
appropriate clinical setting.
Mediastinal and bilateral hilar candi metastatic disease.
The extent of metastatic disease is more completely assessed on the outpatient PET/CT performed earlier in the same day.
PET-CT 06/2025: Numerous bilateral hypermetabolic metastatic pulmonary nodules/masses.
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
FDG avid metastatic hilar and mediastinal adenopathy.
Hypermetabolic right adrenal gland metastatic focus. No FDG avid hepatic metastatic lesion.
Hypermetabolic pancreatic mass, consistent with neoplasm.
Small metastatic mesenteric nodules with increased metabolic activity.
2 cm focal FDG avid sigmoid mass, consistent with neoplasm.
Small osseous metastatic lesions involving the lateral left superior pubic ramus and left posterior periacetabular ilium.
Brain MRI 06/2025: Several (approximately 4) enhancing intracranial brain masses at the ríos-white matter junctions with associated vasogenic edema, highly suspicious for metastases. No MR evidence for acute infarct or hemorrhage.
Lung biopsy 05/2025: Poorly differentiated invasive adenocarcinoma, NGS negative, PD-L1 expression 95%
ECHO 05/2025: 1. Normal left ventricular size, wall thickness and systolic function. Ejection fraction of 65-70%.
2. Aortic sclerosis without stenosis. Mild aortic regurgitation.
3. Mildly dilated proximal ascending aorta measures 4.0 cm.
4. Compared to 07/07/24: prior Asc aorta measurement was 4.2cm.
Subjective Data
-
Date of Service:
Date of Service: July 09, 2025
Chief Complaint: Pulmonary Follow Up (Hypoxemic respiratory failure)
Subjective:
Remains on high flow oxygen
Continues to have shortness of breath with activity.
Denies hemoptysis
Review of Systems
General: Fever (n)
Cardiopulmonary: Dyspnea, Dyspnea on Exertion and Cough
GI: Abdominal Pain (n) and Nausea (n)
Objective Data
Data Reviewed
Vital Signs / I&O / Oxygen:
Vital Signs
Temp Pulse Resp BP Pulse Ox
97.5 F 109 28 113/69 92
07/09/25 07:35 07/09/25 08:00 07/09/25 08:00 07/09/25 08:00 07/09/25 08:00
Intake and Output
07/08/25 07/09/25 07/10/25
06:59 06:59 06:59
Intake Total 240 / 240
Output Total 250 / 250 300 / 300
Balance -10 / -10 -300 / -300
SaO2 92
Nasal Cannula flow liters per 40
minute
Physical Exam
General: Comfortable
HEENT: Normocephalic
Cardiovascular: S1-S2
Respiratory: Rhonchi and Other (Respiratory rate hanging around 30 to 33/min)
GI: Soft and Non Distended
Neurology: Awake, Alert and Oriented
Skin: Warm
Labs/Micro/Reports
Lab Data
07/08/25 05:15
07/09/25 05:15
Microbiology
07/05/25 16:59 Blood/Venous Blood Culture - Preliminary
No Growth in 72 hours- Final report to follow
07/05/25 16:59 Blood/Venous Blood Culture - Preliminary
No Growth in 72 hours- Final report to follow
07/06/25 18:28 Urine Legionella Urinary Antigen - Final
Negative for Legionella pneumophila Serogroup 1 antigen.
A negative result does not rule out the possiblity of
Legionella infection due to other serogroups or species of
Legionella. Clinical correlation is recommended.
07/06/25 18:28 Urine Streptococcus pneumoniae Antigen (M - Final
Negative for Streptococcus pneumoniae antigen.
A negative result does not exclude infection with
Streptococcus pneumoniae. Clinical correlation is
recommended.
--- NOTE | 2025-07-09 10:45 | W.PN.CD ---
Today's Communication / Plan
-
-Patient is on Cardizem CD 360 at home. received Cardizem CD 300mg yesterday . Rates 105-115whihc is reasonable HR considering respiratory issues. Now on Cradizme 360mg.
Monitor rates on curren therapy.
No on anticoagulation due ot metastatic disese and recent tx of brain mets . Would defere to oncology regarding useof anticaogulationin future.
Impression / Plan
-
A-fib with RVR
- New diagnosis
- [id number] (age greater than 75, hypertension, diabetes)
-Patient is on Cardizem CD 360 at home. Currently Cardizem 300mg. Rates 105-115whihc is reasonable HR considering respiratory issues
-Does not appear to be a good candidate for anticoagulation with metastatic lung CA and brain mets and recent gamma knife treatment. Continue with rate control.
.
First-degree AV block. Noted on ECG earlier this admission. No bradycardia or long pauses. Will need to watch rates when he converts back to sinus.
.
Respiratory failure
-Feels better now than when presenting on admission but still remains on high flow O2
-Patient with underlying lung cancer with worsening shortness of breath. Multiple factors may contribute. Including metastatic lung disease with possible lymphangitic spread, possible underlying COPD possible atypical pneumonia. Difficult to
entirely exclude a component of heart failure. Patient has already received diuretic yesterday. Recent echo with normal left ventricular function. Will not repeat at this time
-Continue additional optimization of respiratory status as directed by dag coater and treatment of lung cancer as directed by oncology
-Will continue to assess need for additional diuretic
Lung cancer. Adenocarcinoma with brain mets. Patient's post gamma 06/19/2025. Based on CT as well as dag coater assessment there is concern for lymphogenic spread. Management as directed by pulmonary and oncology
.
Anemia
-Hemoglobin 10.5. Hemoglobin was 14 on 06/15/2025. 12.1 on admission
Hypertension. Monitor with therapy above
Hypercholesterolemia -continue rosuvastatin
Diabetes. Management as directed by hospitalist
Thyroid disease. Patient on levothyroxine. Treatment directed by hospitalist
Physical Exam
Vital Signs/Labs
Vital Signs
Temp Pulse Resp BP Pulse Ox
97.5 F 109 28 113/69 92
07/09/25 07:35 07/09/25 08:00 07/09/25 08:00 07/09/25 08:00 07/09/25 08:00
07/08/25 05:15
07/09/25 05:15
07/07/25
07:20
Lqy-B-Pteicuetndn Pept 626
LAB Results
07/06/25 07/06/25
10:33 17:00
Troponin I 0.023 D Cancelled
Physical Exam
Constitutional: Other (comfortable on high flow O2)
Cardiovascular: Rhythm/rate is irregular
Respiratory: Other (wheezes bilat)
GI: Soft and Non tender
Neuro/Psych: Alert
Data Reviewed
-
Date of Service: July 09, 2025
Medical Decision Making: Reviewed Test Results
Echo: Report Reviewed by me
Medical Tests (PFT, Pathology etc): Report Reviewed by me
Labs: Labs Reviewed by me
[2025-07-09] MEDS: STERILE WATER FOR INJECTION 20 ML IV (11:28)
[2025-07-09] MEDS: ROCEPHIN 2000 MG IV (11:28)
[2025-07-09 12:19] LABS: Glucose - Point of Care 312 mg/dl (70-99)
--- NOTE | 2025-07-09 12:23 | W.PN.HOSP.TC ---
Today's Communication/Plan
-
Continue with IV steroids
Continue with antibiotic
Continue bronchodilators
Wean O2 as tolerated
Prognosis remains guarded
Assessment / Plan
Assessment / Plan
Gen-AAOx3, NAD
HEENT-NC, AT, anicteric, clear oral mm
Neck-supple
CV-reg, no M, +S1/S2
Lungs-bilateral rales, mild end expiratory wheezing bilaterally, on HFNC
Abd-soft, NT, ND
Ext-no edema
Musculoskeletal-no cyanosis, clubbing
Skin-warm and dry
Neuro-grossly non-focal
Psych-calm, cooperative
Acute hypoxic respiratory failure -suspect multifactorial etiology including advanced lung cancer with lymphangitic metastases versus cannot rule out underlying community-acquired pneumonia. Pulmonary edema seems unlikely, did not respond to a dose
of IV Lasix and BNP is not significantly elevated.
CT chest on admission negative for pulmonary embolism. Does show extensive pulmonary metastatic disease, possible lymphangitic carcinomatosis.
Fairly rapid deterioration of respiratory failure on 07/07 requiring transfer to IMU initiation of high flow oxygen.
ABG shows pO2 of 99, pCO2 25, pH 7.46, drawn immediately after placement on high flow oxygen. Respiratory alkalosis due to tachypnea and increased work of breathing.
Started on IV steroids 07/07 by pulmonary.
Continue nebs.
Unfortunately, overall prognosis remains poor as - malignancy is the driving factor behind his respiratory failure.
Current high flow nasal cannula. Currently on 50% FiO2 with 40 L
Sepsis -possibly due to community-acquired pneumonia. Presentation with fever, leukocytosis, tachycardia. Continue ceftriaxone, azithromycin.
Blood cultures negative so far. COVID and influenza negative.
Complete antibiotic course with 7 days for now
Generalized weakness -progressing over the past few weeks. Likely multifactorial etiology including metastatic lung cancer, possible pneumonia, volume depletion with hypotension.
Hydrated with IV fluids, now off.
Near syncopal episode at home noted by family.
I would not put any clinical weight into mild troponin elevation noted on admission. Subsequent troponins have been negative. Clinically doubt ACS.
Hyponatremia -suspect hypovolemic given presentation with hypotension, prerenal azotemia, near syncope. Sodium improving, 134.
Permanently discontinue hydrochlorothiazide.
Low serum bicarbonate is in compensation to his respiratory alkalosis.
Metastatic pulmonary adenocarcinoma -under the care of [facility] cancer, Dr. Martin. Cerebral mets noted on brain MRI 06/03/2025. Scheduled for immunotherapy to start as outpatient this week. Had gamma knife radiation to the brain recently,
completed a course of steroids this week.
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 Hypermetabolic pancreatic mass consistent with neoplasm. Sigmoid mass consistent with neoplasm.
Oncology evaluated-not not a candidate for inpatient chemo or immunotherapy in the current setting
DM2 with hyperglycemia -hemoglobin A1c 8.9%. Steroid-induced hyperglycemia, glucose 254 this morning, 348 last night.
At home he is on Lantus 10 units at bedtime.
In the hospital he remains on Lantus 10 units at bedtime, aspart low resistance scale.
Increase Lantus to 15 units at bedtime, add aspart 5 unites with meals. Continue low resistance corrective scale.
ADA added. POC 208 am.
Essential hypertension -Home meds have been on hold for hypotension but blood pressure and heart rate now elevated.
Was on diltiazem 360 mg daily, hydrochlorothiazide 25 mg daily, losartan 50 mg twice daily, spironolactone 50 mg daily prior to admission.
Will resume diltiazem at lower dose. Keep other meds on hold for now.
Afib- RVR likely worsened with severe hypoxemia
continue cardizem 360mg daily
Not a candidate for anticoagulation in the setting of metastic disease with recent treatment of brain mets
Hypothyroidism -continue levothyroxine. TSH 4.9, free T4 1.4.
Chronic anemia -hemoglobin at baseline.
Hyperlipidemia -rosuvastatin.
Full code
Discussed with DIL and spouse at bedside in detail
Discussed with pulmonary
Anticipated Discharge: > 48 hours
Subjective/Interval History
-
Date of Service: July 09, 2025
Family at bedside
Patient with poor appetite at times
Remains on Hi flow nasal cannula
Objective Data
-
Labs:
Laboratory Results
07/09/25
05:15
Sodium 134 L
Potassium 4.0
Chloride 109 H
Carbon Dioxide 19 L
BUN 48 H
Creatinine 0.9
Glucose 190 H
Calcium 9.2
Vital Signs:
Vital Signs
Temp Pulse Resp BP Pulse Ox
97.5 F 79 18 113/69 91
07/09/25 07:35 07/09/25 11:17 07/09/25 11:17 07/09/25 08:00 07/09/25 11:17
I&O
07/08/25 07/09/25 07/10/25
06:59 06:59 06:59
Intake Total 240 / 240
Output Total 250 / 250 300 / 300
Balance -10 / -10 -300 / -300
Data Reviewed
-
Total Time Spent with Patient (in minutes): 55
[2025-07-09] MEDS: NOVOLOG FLEXPEN-LOW RESISTANCE 4 UNITS SC (12:38)
--- NOTE | 2025-07-09 15:21 | PTCARENOTE ---
Pt's assessment as documented. Aox3. Afib on tele monitor. Sating mid to high 90's on HFNC. OOB to chair with PT. Voiding in urinal. Family at bedside, questions answered and updated on plan of care. Pt ringing appropriately, call rios within reach.
--- NOTE | 2025-07-09 15:29 | CM ---
Addendum entered by Adriana Rogers 07/09/25 15:54:
PRATIK Wright met with the family as well as the patient to say hello. Family is very optomistic that he the patient is weaning off his HFNC Family said that he likely will need oxygen and perhaps a bed at home.
PLAN: Home PT vs SNF/ oxygen + DME
Original Note:
Following up on Patient. Patient still on 50% HFNC at 40 Liters. PRATIK Wright spoke to Medical Attending who said that they are still giving the family sometime while they watch the patient for any improvement.
PLAN: TBD, Case Management continue to follow.
[2025-07-09] MEDS: CRESTOR 10 MG PO (18:02)
[2025-07-09] MEDS: LOVENOX 40 MG SC (18:02)
[2025-07-09] MEDS: NOVOLOG FLEXPEN-LOW RESISTANCE 5 UNITS SC (18:03)
[2025-07-09 18:11] LABS: Glucose - Point of Care 359 mg/dl (70-99)
--- NOTE | 2025-07-09 21:21 | PTCARENOTE ---
Pt c/o dry nose. IN[employer]CTION[employer] SPECIALIST contacted. order received for nasal spray.
[2025-07-09 21:30] LABS: Glucose - Point of Care 361 mg/dl (70-99)
[2025-07-09] MEDS: LANTUS 0.15 UNITS SC (21:41)
[2025-07-09] MEDS: TYLENOL 650 MG PO (21:42)
[2025-07-09] MEDS: ANESTHETIC LOZENGE 1 LOZENGE PO (21:42)
[2025-07-10] VITALS (12 sets, daily range): BP systolic 97–133; BP diastolic 50–73
[2025-07-10] MEDS: ANESTHETIC LOZENGE 1 LOZENGE PO (03:12)
[2025-07-10] MEDS: ROBITUSSIN 100 MG PO (03:12)
[2025-07-10] MEDS: OCEAN, SALINE MIST 2 SPRAYS NASAL (03:12)
[2025-07-10] MEDS: SYNTHROID 75 MCG PO (05:25)
[2025-07-10 06:15] LABS: Platelet Count 338 10^3/uL (130-400)
[2025-07-10 06:16] LABS: Hematocrit 28.9 % (39.0-52.0); Hemoglobin 10.1 g/dL (13.0-18.0); Mean Corp Hgb Conc. 34.9 g/dL (33.0-37.0); Mean Corpuscular Volume 86.3 fL (80.0-94.0); Nucleated Red Blood Cells % 0 % (-); Red Cell Dist. Width 13.7 % (11.5-14.5)
[2025-07-10 06:36] LABS: ALT (SGPT) 53 U/L (0-50); AST (SGOT) 20 U/L (17-59); Albumin 3.0 g/dl (3.5-5.0); Alkaline Phosphatase 75 U/L (38-126); Blood Urea Nitrogen 55 mg/dl (9-20); Calcium 8.7 mg/dl (8.4-10.2); Carbon Dioxide 20 mmol/L (22-30); Chloride 107 mmol/L (98-107); Estimated Creatinine Clearance 48 ml/min; Glucose 271 mg/dl (70-99); Magnesium 2.3 mg/dl (1.6-2.3); Potassium 3.7 mmol/L (3.5-5.1); Sodium 134 mmol/L (135-145); Total Protein 5.4 g/dl (6.3-8.2); eGFR > 60.00
[2025-07-10] MEDS: DUONEB 3 ML INH ×4 (07:20→20:25)
[2025-07-10] MEDS: VITAMIN D3 (cholecalciferol) 25 MCG PO (07:32)
[2025-07-10] MEDS: PROTONIX 40 MG PO (07:32)
[2025-07-10] MEDS: ZITHROMAX 500 MG PO (07:32)
[2025-07-10] MEDS: CARDIZEM CD 360 MG PO (07:32)
[2025-07-10] MEDS: VITAMIN B-12 1000 MCG PO (07:32)
[2025-07-10] MEDS: SOLU-MEDROL PF 60 MG IV (07:32)
--- NOTE | 2025-07-10 08:35 | W.PN.CD ---
Today's Communication / Plan
-
- Heart rate is controlled on Cardizem CD 360 mg daily; continue.
- No further cardiac recommendations at this time; Cardiology will remain available on an as-needed basis.
Impression / Plan
-
A-fib with RVR
- New diagnosis
- [id number] 4 (age greater than 75, hypertension, diabetes)
- Heart rate is controlled on Cardizem CD 360 mg daily; continue.
- Heart rate will be affected by underlying pulmonary condition.
- Does not appear to be a good candidate for anticoagulation with metastatic lung CA and brain mets and recent gamma knife treatment.
.
Respiratory failure
-Feels better now than when presenting on admission but still remains on high flow O2
-Patient with underlying lung cancer with worsening shortness of breath.
-Continue additional optimization of respiratory status as directed by Gizzard Peeler and treatment of lung cancer as directed by Oncology
-No diuretic indicated at this time.
Metastatic lung cancer. Adenocarcinoma with brain mets. Patient's post gamma 06/19/2025. Based on CT as well as bean sprout laborer assessment there is concern for lymphogenic spread. Management as directed by pulmonary and oncology
.
Anemia
-Hemoglobin 10.5. Hemoglobin was 14 on 06/15/2025. 12.1 on admission
Hypertension. Blood pressure is fairly controlled overall.
Hypercholesterolemia -continue rosuvastatin
Diabetes. Management as directed by Hospitalist
Thyroid disease. Patient on levothyroxine. Treatment directed by Hospitalist
Physical Exam
Vital Signs/Labs
Vital Signs
Temp Pulse Resp BP Pulse Ox
97.0 F 70 18 106/60 97
07/10/25 03:02 07/10/25 07:23 07/10/25 07:23 07/10/25 06:00 07/10/25 07:23
07/10/25 05:57
07/10/25 05:57
Magnesium 2.3 mg/dl (1.6-2.3) 07/10/25 05:57
07/07/25
07:20
Svq-W-Lfahxuhybqf Pept 626
Physical Exam
Constitutional: No acute distress and Comfortable
EENT: Anicteric
Cardiovascular: Pedal edema is absent, Systolic murmur absent, Rhythm/rate is irregular and S1S2 is normal
Respiratory: Respiratory effort normal and Wheeze Present
GI: Soft
Neuro/Psych: AO x 3
Other: Skin (Warm, dry, intact)
Data Reviewed
-
Date of Service: July 10, 2025
EKG: Report Reviewed by me (Telemetry: Rate-controlled A-fib)
Echo: Report Reviewed by me (06/08/2025: LVEF 65-70%.)
Medical Tests (PFT, Pathology etc): Discussed with Patient
Labs: Labs Reviewed by me
[2025-07-10] MEDS: NOVOLOG FLEXPEN-LOW RESISTANCE 3 UNITS SC ×2 (09:24→12:39)
[2025-07-10] MEDS: NOVOLOG FLEXPEN 5 UNITS SC ×2 (09:24→12:38)
[2025-07-10 09:28] LABS: Glucose - Point of Care 271 mg/dl (70-99)
[2025-07-10] MEDS: STERILE WATER FOR INJECTION 20 ML IV (09:29)
[2025-07-10] MEDS: ROCEPHIN 2000 MG IV (09:29)
--- NOTE | 2025-07-10 10:30 | W.PN.ONC ---
Today's Communication / Plan
-
Continue steroids, would wean as able
Continue antibiotics
Weaning O2
Encouraged OOB and working w/ PT
If PS allows, will consider outpatient Keytruda
Impression
Impression
hypoxic respiratory failure -- ground glass opacities with diffdx lymphangitic carcinomatosis, pulmonary edema, atypical pneumonia
metastatic lung adenocarcinoma
brain mets s/p gamma knife
uncontrolled DM
Plan
Plan
Continue steroids, would wean as able
Continue antibiotics
Weaning O2
Encouraged OOB and working w/ PT
If PS allows, will consider outpatient Keytruda
Subjective/Objective
Subjective/Objective
feeling a little better this am, some cough. family at bedside excited about decreasing O2 needs.
Vital Signs:
Vital Signs
Temp Pulse Resp BP Pulse Ox
97.0 F 70 18 106/60 95
07/10/25 03:02 07/10/25 07:23 07/10/25 07:23 07/10/25 06:00 07/10/25 08:49
Lab Results:
Laboratory Data
WBC 13.9 10^3/uL (4.8-10.8) H 07/10/25 05:57
Hgb 10.1 g/dL (13.0-18.0) L 07/10/25 05:57
Plt Count 338 10^3/uL (130-400) D 07/10/25 05:57
eGFR > 60.00 07/10/25 05:57
--- NOTE | 2025-07-10 10:43 | W.PN.PUL3 ---
Today's Communication / Plan
-
Continue oxygen supplementation-wean down as able-down to mid flow--improved.
Decrease Solu-Medrol to 40 mg IV daily-hopefully can transition to prednisone 40 mg tomorrow
Complete 7 days of antibiotics in the next 24 to 48 hours
Continue supportive care
Assessment
-
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 S/p brain radiation, who presented to the hospital with shortness of breath and chills. Patient was noted to be
hypoxic in the emergency room in 80s and was placed on supplemental oxygen. Imaging was negative for any pulmonary embolism per was suggestive of interseptal thickening in the mid to lower lobes concerning for lymphangitic spread versus atypical
pneumonia versus pulmonary edema. Patient was admitted to the hospital and was started on supplemental oxygen, he also received diuretics as well as steroids along with ceftriaxone and Zithromax. Patient progressively has increasing oxygen
requirement and today became more hypoxic despite being on 15 L supplemental oxygen. Patient is being transferred to high flow nasal cannula and pulmonary consultation was requested for further input.
With his recent diagnosis of lung cancer, patient had brain MRI which was positive for metastatic lesions. PET CT scan also positive for metastatic lesion in colon, adrenal glands and osseous metastasis. NexGen ration sequencing negative for any
identifiable mutation and PD-L1 expression was positive at 95%. Oncology service has been on case and patient is scheduled to initiate palliative immunotherapy on 07/09/2025.
#1. Acute severe hypoxic respiratory failure
- Recent CT-PE chest and PET-CT scan reviewed, suggestive of multiple metastatic lesions and lymphangitic spread.
Patient does not appear volume loaded on exam and has fairly unremarkable echocardiogram.
Atypical pneumonia is in differential diagnosis and agree with continuing treatment with ceftriaxone and azithromycin as ordered-with negative cultures complete total 7 days.
Patient was admitted to the hospital with hypoxia on 07/06, and has progressively increasing oxygen requirement noted, despite antibiotics and diuretics along with prednisone.
- Patient transition to mid flow 10 L on 07/10/2025. Continue to monitor closely. High flow oxygen can be used as needed.
- Continue Methylprednisolone -60 mg (75 mg prednisone equivalent)-decreased to 40 mg IV daily. Plan to transition to 40 mg of prednisone in the next 24 to 48 hours.
- Continue Duoneb qid- to aid with secretion clearance.
- Influenza A, B, COVID-19 screen negative. Legionella and streptococcal pneumonia antigen negative. Blood cultures negative so far.
-If this is lymphangitic spread unlikely to improve-oncology correspondence reviewed-prognosis guarded. At this point all therapies on hold given clinical situation.
- Multiple Discussions. with patient's , daughter in law and patient at bedside. If further worsening noted, patient will require intubation and mechanical ventilation. Considering high likelihood of lymphangitic spread of advanced poorly
differentiated adenocarcinoma causing hypoxia, I explained to the patient and his that patient may have a difficult time coming off the ventilator and we may not be successful in extubating.
Patient and family understand the risks involved and want to proceed with intubation if patient develops further respiratory compromise
#2. Metastatic poorly differentiated adenocarcinoma lung-metastatic to brain, contralateral lung and others.
- Patient has evidence of brain metastasis, s/p radiation, 1 session at [facility]
- PET scan also suggestive of adrenal gland osseous and sigmoid colon metastatic lesions
- Next generation sequencing negative, PD-L1 expression at 95%. Oncology service on case. Patient is scheduled for palliative immunotherapy per oncology notes-currently on hold .
-
#3. Rapid atrial fibrillation- heart rate improved.
-Cardiology has signed off
- Not a candidate for anticoagulation
Other medical diagnoses:
- Hypertension
- Hypothyroidism
- Hyperlipidemia
- Diabetes mellitus
- Mild hyponatremia
DVT prophylaxis. Subcu Lovenox 40
Prognosis is poor.
Data:
CT-PE 06/2025: No CTA evidence for an acute pulmonary thromboembolism.
Extensive pulmonary metastatic disease.
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 Pulmonary edema or atypical pneumonia would be alternative considerations in the
appropriate clinical setting.
Mediastinal and bilateral hilar candi metastatic disease.
The extent of metastatic disease is more completely assessed on the outpatient PET/CT performed earlier in the same day.
PET-CT 06/2025: Numerous bilateral hypermetabolic metastatic pulmonary nodules/masses.
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
FDG avid metastatic hilar and mediastinal adenopathy.
Hypermetabolic right adrenal gland metastatic focus. No FDG avid hepatic metastatic lesion.
Hypermetabolic pancreatic mass, consistent with neoplasm.
Small metastatic mesenteric nodules with increased metabolic activity.
2 cm focal FDG avid sigmoid mass, consistent with neoplasm.
Small osseous metastatic lesions involving the lateral left superior pubic ramus and left posterior periacetabular ilium.
Brain MRI 06/2025: Several (approximately 4) enhancing intracranial brain masses at the ríos-white matter junctions with associated vasogenic edema, highly suspicious for metastases. No MR evidence for acute infarct or hemorrhage.
Lung biopsy 05/2025: Poorly differentiated invasive adenocarcinoma, NGS negative, PD-L1 expression 95%
ECHO 05/2025: 1. Normal left ventricular size, wall thickness and systolic function. Ejection fraction of 65-70%.
2. Aortic sclerosis without stenosis. Mild aortic regurgitation.
3. Mildly dilated proximal ascending aorta measures 4.0 cm.
4. Compared to 07/07/24: prior Asc aorta measurement was 4.2cm.
Subjective Data
-
Date of Service:
Date of Service: July 10, 2025
Chief Complaint: Pulmonary Follow Up (Hypoxemic respiratory failure)
Objective Data
Data Reviewed
Vital Signs / I&O / Oxygen:
Vital Signs
Temp Pulse Resp BP Pulse Ox
97.0 F 70 18 106/60 95
07/10/25 03:02 07/10/25 07:23 07/10/25 07:23 07/10/25 06:00 07/10/25 08:49
Intake and Output
07/09/25 07/10/25 07/11/25
06:59 06:59 06:59
Intake Total 1440 / 1440
Output Total 300 / 300 225 / 225
Balance -300 / -300 1215 / 1215
SaO2 95
Nasal Cannula flow liters per 15
minute
Physical Exam
General: Comfortable
HEENT: Normocephalic
Cardiovascular: S1-S2
Respiratory: Crackles (Bases), Rhonchi (Minimal) and Other (Coarse breath sounds bilaterally)
GI: Soft and Non Distended
Neurology: Awake, Alert and Oriented
Skin: Warm
Labs/Micro/Reports
Lab Data
07/10/25 05:57
07/10/25 05:57
Microbiology
07/05/25 16:59 Blood/Venous Blood Culture - Preliminary
No Growth in 4 days- Final report to follow
07/05/25 16:59 Blood/Venous Blood Culture - Preliminary
No Growth in 4 days- Final report to follow
[2025-07-10 12:14] LABS: Glucose - Point of Care 273 mg/dl (70-99)
--- NOTE | 2025-07-10 12:28 | W.PN.HOSP.TC ---
Today's Communication/Plan
-
Wean O2 as tolerated
Monitor heart rate
Continue with IV steroids
Continue final course of antibiotic
Continue to work with PT
Assessment / Plan
Assessment / Plan
Gen-AAOx3, NAD
HEENT-NC, AT, anicteric, clear oral mm
Neck-supple
CV-reg, no M, +S1/S2
Lungs-bilateral rales, mild end expiratory wheezing bilaterally, on mid flow nasal cannula 10 L
Abd-soft, NT, ND
Ext-no edema
Musculoskeletal-no cyanosis, clubbing
Skin-warm and dry
Neuro-grossly non-focal
Psych-calm, cooperative
#Acute hypoxic respiratory failure -suspect multifactorial etiology including advanced lung cancer with lymphangitic metastases versus cannot rule out underlying community-acquired pneumonia. Pulmonary edema seems unlikely, did not respond to a
dose of IV Lasix and BNP is not significantly elevated.
CT chest on admission negative for pulmonary embolism. Does show extensive pulmonary metastatic disease, possible lymphangitic carcinomatosis.
Fairly rapid deterioration of respiratory failure on 07/07 requiring transfer to IMU initiation of high flow oxygen.
ABG shows pO2 of 99, pCO2 25, pH 7.46, drawn immediately after placement on high flow oxygen. Respiratory alkalosis due to tachypnea and increased work of breathing.
Started on IV steroids 07/07 by pulmonary. Probably start weaning down in next 24 to 48 hours.
Continue nebs.
Unfortunately, overall prognosis remains poor as - malignancy is the driving factor behind his respiratory failure.
Status post high flow nasal cannula currently on 10 L of mid flow
#Sepsis -possibly due to community-acquired pneumonia.
Presentation with fever, leukocytosis, tachycardia. Continue ceftriaxone, azithromycin.
Blood cultures negative so far. COVID and influenza negative.
Complete antibiotic course with 7 days for now
#Generalized weakness -progressing over the past few weeks. Likely multifactorial etiology including metastatic lung cancer, possible pneumonia, volume depletion with hypotension.
Hydrated with IV fluids, now off.
Near syncopal episode at home noted by family.
# Nonischemic myocardial injury likely secondary to severe hypoxemia, sepsis
#Hyponatremia -suspect hypovolemic given presentation with hypotension, prerenal azotemia, near syncope. Sodium improving, 134.
Permanently discontinue hydrochlorothiazide.
Low serum bicarbonate is in compensation to his respiratory alkalosis.
#Metastatic pulmonary adenocarcinoma -under the care of [facility], Dr. Martin. Cerebral mets noted on brain MRI 06/03/2025. Scheduled for immunotherapy to start as outpatient this week. Had gamma knife radiation to the brain recently,
completed a course of steroids this week.
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 Hypermetabolic pancreatic mass consistent with neoplasm. Sigmoid mass consistent with neoplasm.
Oncology evaluated-not not a candidate for inpatient chemo or immunotherapy in the current setting.
#DM2 with hyperglycemia -hemoglobin A1c 8.9%. Steroid-induced hyperglycemia
Increase Lantus to 15 units at bedtime, add aspart 5 unites with meals. Continue low resistance corrective scale.
ADA added. POC 271 am. Blood glucose fluid improved with reduction and steroids
#Essential hypertension -Home meds have been on hold for hypotension but blood pressure and heart rate now elevated.
Was on diltiazem 360 mg daily, hydrochlorothiazide 25 mg daily, losartan 50 mg twice daily, spironolactone 50 mg daily prior to admission.
Will resume diltiazem at lower dose. Keep other meds on hold for now. Blood pressure controlled 106/80
#Afib- RVR likely worsened with severe hypoxemia
continue cardizem 360mg daily
Not a candidate for anticoagulation in the setting of metastic disease with recent treatment of brain mets
Cardiology signed off
Echo EF of 65 to 70%.
Hypothyroidism -continue levothyroxine. TSH 4.9, free T4 1.4.
Chronic anemia -hemoglobin at baseline.
Hyperlipidemia -rosuvastatin.
Full code
Discussed with spouse at bedside in details.
Anticipated Discharge: > 48 hours
Subjective/Interval History
-
Date of Service: July 10, 2025
Patient weaned off high flow nasal cannula and currently on 10 L of mid flow
Worked with PT yesterday
Objective Data
-
Labs:
Laboratory Results
07/10/25
05:57
WBC 13.9 H
Hgb 10.1 L
Hct 28.9 L
Plt Count 338 D
Sodium 134 L
Potassium 3.7
Chloride 107
Carbon Dioxide 20 L
BUN 55 H
Creatinine 1.1
Glucose 271 H
Calcium 8.7
Total Bilirubin 0.3
AST 20
ALT 53 H
Alkaline Phosphatase 75
Vital Signs:
Vital Signs
Temp Pulse Resp BP Pulse Ox
97.5 F 70 18 106/60 93
07/10/25 07:35 07/10/25 07:23 07/10/25 07:23 07/10/25 06:00 07/10/25 12:11
I&O
07/09/25 07/10/25 07/11/25
06:59 06:59 06:59
Intake Total 1440 / 1440 240 / 240
Output Total 300 / 300 225 / 225
Balance -300 / -300 1215 / 1215 240 / 240
Data Reviewed
-
Total Time Spent with Patient (in minutes): 55
--- NOTE | 2025-07-10 15:51 | CM ---
Following up on Patient. Medical Attending stated that patient is actually improving so PRATIK Wright will continue to monitor.
PLAN: TBD
--- NOTE | 2025-07-10 17:07 | PTCARENOTE ---
Pt's assessment as documented. Aox3. Afib on tele monitor. Weaned from 15 to 8L MFNC by RT. Sats in the low 90's. Voiding in urinal. Family at bedside, questions answered and updated on plan of care. Pt ringing appropriately, call rios within reach.
[2025-07-10] MEDS: NOVOLOG FLEXPEN-LOW RESISTANCE 5 UNITS SC (17:49)
[2025-07-10] MEDS: NOVOLOG FLEXPEN 8 UNITS SC (17:49)
[2025-07-10] MEDS: CRESTOR 10 MG PO (17:50)
[2025-07-10] MEDS: LOVENOX 40 MG SC (17:50)
--- NOTE | 2025-07-10 17:53 | RESPNOTE ---
pt OOB to chair. able to stand and pivot with minimal assistance. SpO2 did drop to 83-84% on 7L midflow with exertion, pt mouth-breathing. O2 increased to 10L and pt instructed to breathe in through nose and out through the mouth. able to recover to
90-92% on 10L within 2-3min, dyspnea subsided. O2 turned back down to 8L midflow, 30 minutes post activity sPO2 94-95% on 8L midflow.
[2025-07-10 17:55] LABS: Glucose - Point of Care 374 mg/dl (70-99)
[2025-07-10] MEDS: XALATAN OPHTHALMIC SOLUTION 1 DROP RIGHT EYE (19:27)
[2025-07-10] MEDS: LANTUS 0.18 UNITS SC (21:36)
[2025-07-10 21:38] LABS: Glucose - Point of Care 272 mg/dl (70-99)
[2025-07-11] VITALS (15 sets, daily range): BP systolic 96–130; BP diastolic 56–74; PULSE 90; O2SAT 95–97
--- NOTE | 2025-07-11 00:47 | PTCARENOTE ---
Pt with episode of desat to low 80s, respirations labored, pt mouth breathing. NRB placed with recovery to high 90s. O2 titrated from 8L to 10L to maintain sats >90. Coached breathing. VSS. Pt resting in bed without complaints following episode.
Care ongoing. Call rios within reach.
--- NOTE | 2025-07-11 01:42 | PTCARENOTE ---
This RN noted that monitor leads were off. Upon assessment, pt was OOB in bathroom without monitoring equipment or oxygen. Oxygen tubing quickly placed on pt. Monitoring equipment replaced. Satting mid 80s. NRB placed for recovery. Pt escorted back
to bed without further incident. Sats recovered to 99%. Education reinforced about call rios, importance of oxygen and monitoring equipment. Bed alarm placed for pt safety.
[2025-07-11 04:53] LABS: Hematocrit 28.6 % (39.0-52.0); Hemoglobin 9.9 g/dL (13.0-18.0); Mean Corp Hgb Conc. 34.6 g/dL (33.0-37.0); Mean Corpuscular Volume 87.5 fL (80.0-94.0); Nucleated Red Blood Cells % 0 % (-); Platelet Count 353 10^3/uL (130-400); Red Cell Dist. Width 13.9 % (11.5-14.5)
[2025-07-11 05:18] LABS: Blood Urea Nitrogen 56 mg/dl (9-20); Calcium 8.7 mg/dl (8.4-10.2); Carbon Dioxide 20 mmol/L (22-30); Chloride 111 mmol/L (98-107); Estimated Creatinine Clearance 48 ml/min; Glucose 266 mg/dl (70-99); Potassium 4.1 mmol/L (3.5-5.1); Sodium 137 mmol/L (135-145); eGFR > 60.00
[2025-07-11] MEDS: SYNTHROID 75 MCG PO (05:45)
[2025-07-11] MEDS: DUONEB 3 ML INH ×4 (07:51→19:11)
[2025-07-11 08:06] LABS: Glucose - Point of Care 240 mg/dl (70-99)
[2025-07-11] MEDS: CARDIZEM CD 360 MG PO (09:02)
[2025-07-11] MEDS: PROTONIX 40 MG PO (09:03)
[2025-07-11] MEDS: VITAMIN B-12 1000 MCG PO (09:03)
[2025-07-11] MEDS: SOLU-MEDROL PF 40 MG IV (09:04)
[2025-07-11] MEDS: ZITHROMAX 500 MG PO (09:04)
[2025-07-11] MEDS: VITAMIN D3 (cholecalciferol) 25 MCG PO (09:04)
[2025-07-11] MEDS: STERILE WATER FOR INJECTION 20 ML IV (09:05)
[2025-07-11] MEDS: ROCEPHIN 2000 MG IV (09:05)
[2025-07-11] MEDS: NOVOLOG FLEXPEN-LOW RESISTANCE 2 UNITS SC (09:19)
[2025-07-11] MEDS: NOVOLOG FLEXPEN 8 UNITS SC ×2 (09:20→13:07)
[2025-07-11 12:22] LABS: Glucose - Point of Care 253 mg/dl (70-99)
--- NOTE | 2025-07-11 12:37 | W.PN.HOSP.TC ---
Today's Communication/Plan
-
Continue to wean oxygen as tolerated
Complete antibiotic course
As monitor POC and adjust insulin as needed
Continue with IV steroids
Assessment / Plan
Assessment / Plan
Gen-AAOx3, NAD
HEENT-NC, AT, anicteric, clear oral mm
Neck-supple
CV-reg, no M, +S1/S2
Lungs-bilateral rales, mild end expiratory wheezing bilaterally, on mid flow nasal cannula 8 L
Abd-soft, NT, ND
Ext-no edema
Musculoskeletal-no cyanosis, clubbing
Skin-warm and dry
Neuro-grossly non-focal
Psych-calm, cooperative
#Acute hypoxic respiratory failure -suspect multifactorial etiology including advanced lung cancer with lymphangitic metastases versus cannot rule out underlying community-acquired pneumonia. Pulmonary edema seems unlikely, did not respond to a
dose of IV Lasix and BNP is not significantly elevated.
CT chest on admission negative for pulmonary embolism. Does show extensive pulmonary metastatic disease, possible lymphangitic carcinomatosis.
Fairly rapid deterioration of respiratory failure on 07/07 requiring transfer to IMU initiation of high flow oxygen.
ABG shows pO2 of 99, pCO2 25, pH 7.46, drawn immediately after placement on high flow oxygen. Respiratory alkalosis due to tachypnea and increased work of breathing.
Started on IV steroids 07/07 by pulmonary. Probably start weaning down in next 24 to 48 hours. Now on 40 mg of IV Solu-Medrol
Continue nebs.
Unfortunately, overall prognosis remains poor as - malignancy is the driving factor behind his respiratory failure.
Status post high flow nasal cannula currently on 8 L of mid flow
#Sepsis -possibly due to community-acquired pneumonia.
Presentation with fever, leukocytosis, tachycardia. Continue ceftriaxone, azithromycin.
Blood cultures negative so far. COVID and influenza negative.
Complete antibiotic course with 7 days for now
#Generalized weakness -progressing over the past few weeks. Likely multifactorial etiology including metastatic lung cancer, possible pneumonia, volume depletion with hypotension.
Hydrated with IV fluids, now off.
Near syncopal episode at home noted by family.
# Nonischemic myocardial injury likely secondary to severe hypoxemia, sepsis
#Hyponatremia -suspect hypovolemic given presentation with hypotension, prerenal azotemia, near syncope. Sodium improving, 134.
Permanently discontinue hydrochlorothiazide.
Low serum bicarbonate is in compensation to his respiratory alkalosis.
#Metastatic pulmonary adenocarcinoma -under the care of [facility], Dr. Martin. Cerebral mets noted on brain MRI 06/03/2025. Scheduled for immunotherapy to start as outpatient this week. Had gamma knife radiation to the brain recently,
completed a course of steroids this week.
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 Hypermetabolic pancreatic mass consistent with neoplasm. Sigmoid mass consistent with neoplasm.
Oncology evaluated-not not a candidate for inpatient chemo or immunotherapy in the current setting.
#DM2 with hyperglycemia -hemoglobin A1c 8.9%. Steroid-induced hyperglycemia
Increase Lantus to 18 units at bedtime, add aspart 8 unites with meals. Continue insulin sliding scale.
ADA added. POC 240 am.
#Essential hypertension -Home meds have been on hold for hypotension but blood pressure and heart rate now elevated.
Was on diltiazem 360 mg daily, hydrochlorothiazide 25 mg daily, losartan 50 mg twice daily, spironolactone 50 mg daily prior to admission.
Will resume diltiazem at lower dose. Keep other meds on hold for now. Blood pressure controlled 106/80
#Afib- RVR likely worsened with severe hypoxemia
continue cardizem 360mg daily
Not a candidate for anticoagulation in the setting of metastic disease with recent treatment of brain mets
Cardiology signed off
Echo EF of 65 to 70%.
Hypothyroidism -continue levothyroxine. TSH 4.9, free T4 1.4.
Chronic anemia -hemoglobin at baseline.
Hyperlipidemia -rosuvastatin.
Full code
Discussed with patient spouse and [id number] at bedside in details
PT eval
Anticipated Discharge: > 48 hours
Subjective/Interval History
-
Date of Service: July 11, 2025
States of improvement in sore throat
Remains on baseline nasal cannula
Able to ambulate with walker
Objective Data
-
Labs:
Laboratory Results
07/11/25
04:38
WBC 13.5 H
Hgb 9.9 L
Hct 28.6 L
Plt Count 353
Sodium 137
Potassium 4.1
Chloride 111 H
Carbon Dioxide 20 L
BUN 56 H
Creatinine 1.1
Glucose 266 H
Calcium 8.7
Vital Signs:
Vital Signs
Temp Pulse Resp BP Pulse Ox
97 F 74 28 112/65 97
07/11/25 07:40 07/11/25 11:14 07/11/25 11:14 07/11/25 09:02 07/11/25 11:14
I&O
07/10/25 07/11/25 07/12/25
06:59 06:59 06:59
Intake Total 1440 / 1440 240 / 240
Output Total 225 / 225 400 / 400
Balance 1215 / 1215 -160 / -160
Data Reviewed
-
Total Time Spent with Patient (in minutes): 55
[2025-07-11] MEDS: NOVOLOG FLEXPEN-LOW RESISTANCE 3 UNITS SC ×2 (13:08→18:12)
--- NOTE | 2025-07-11 13:16 | CM ---
Following up on Patient. PRATIK Wright saw that PT is recommending SNF, but OT is SNF/ vs Home so met with the family to see what their thoughts were.
Daughter and with patient were present, patient told his when asked that he prefers home. and the daughter would like SNF, but think he will ultimately decide on home. Based on how he did today with PT/OT and want PRATIK Wright shared,
the family feels he might clear for Home PT since the patient is likely to be here the rest of the week and weekend.
PRATIK Wright will continue to follow to see what his needs are.
PLAN: Home PT vs SNF
--- NOTE | 2025-07-11 13:50 | W.PN.PUL3 ---
Today's Communication / Plan
-
Continue oxygen supplementation-slow improvement Down to 8 L mid flow
Will transition to prednisone oral tomorrow
To complete antibiotics tomorrow
Physical therapy/Occupational Therapy as tolerated
Prognosis is poor
Assessment
-
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 S/p brain radiation, who presented to the hospital with shortness of breath and chills. Patient was noted to be
hypoxic in the emergency room in 80s and was placed on supplemental oxygen. Imaging was negative for any pulmonary embolism per was suggestive of interseptal thickening in the mid to lower lobes concerning for lymphangitic spread versus atypical
pneumonia versus pulmonary edema. Patient was admitted to the hospital and was started on supplemental oxygen, he also received diuretics as well as steroids along with ceftriaxone and Zithromax. Patient progressively has increasing oxygen
requirement and today became more hypoxic despite being on 15 L supplemental oxygen. Patient is being transferred to high flow nasal cannula and pulmonary consultation was requested for further input.
With his recent diagnosis of lung cancer, patient had brain MRI which was positive for metastatic lesions. PET CT scan also positive for metastatic lesion in colon, adrenal glands and osseous metastasis. [employer] ration sequencing negative for any
identifiable mutation and PD-L1 expression was positive at 95%. Oncology service has been on case and patient is scheduled to initiate palliative immunotherapy on 07/09/2025.
#1. Acute severe hypoxic respiratory failure
- CT-PE chest and PET-CT scan reviewed, suggestive of multiple metastatic lesions and lymphangitic spread.
Patient does not appear volume loaded on exam and has fairly unremarkable echocardiogram.
Atypical pneumonia is in differential diagnosis and agree with continuing treatment with ceftriaxone and azithromycin as ordered-with negative cultures complete total 7 days.(To complete antibiotics 05/11/2025)
Patient was admitted to the hospital with hypoxia on 07/06, and has progressively increasing oxygen requirement noted, despite antibiotics and diuretics along with prednisone.
- Continue mid flow 8 L on 07/11/2025. Continue to monitor closely. Improved.
- Continue Methylprednisolone -60 mg (75 mg prednisone equivalent)-decreased to 40 mg IV daily. I will transition to prednisone 40 mg tomorrow 07/12/2025-With a slow taper going forward
- Influenza A, B, COVID-19 screen negative. Legionella and streptococcal pneumonia antigen negative. Blood cultures negative so far.
-If this is lymphangitic spread unlikely to improve-oncology correspondence reviewed-prognosis guarded. At this point all therapies on hold given clinical situation.
--
- Multiple Discussions. with patient's , daughter in law and patient at bedside. If further worsening noted, patient will require intubation and mechanical ventilation. Considering high likelihood of lymphangitic spread of advanced poorly
differentiated adenocarcinoma causing hypoxia, have explained to the patient and his that patient may have a difficult time coming off the ventilator and we may not be successful in extubating.
Patient and family understand the risks involved and want to proceed with intubation if patient develops further respiratory compromise
#2. Metastatic poorly differentiated adenocarcinoma lung-metastatic to brain, contralateral lung and others.
- Patient has evidence of brain metastasis, s/p radiation, 1 session at [facility]
- PET scan also suggestive of adrenal gland osseous and sigmoid colon metastatic lesions
- Next generation sequencing negative, PD-L1 expression at 95%. Oncology service on case. Patient is scheduled for palliative immunotherapy per oncology notes-currently on hold .
-
#3. Rapid atrial fibrillation- heart rate improved.
-Cardiology has signed off
- Not a candidate for anticoagulation
Physical therapy/Occupational Therapy as tolerated.
Other medical diagnoses:
- Hypertension
- Hypothyroidism
- Hyperlipidemia
- Diabetes mellitus
- Mild hyponatremia
DVT prophylaxis. Subcu Lovenox 40
Prognosis is poor.
Data:
CT-PE 06/2025: No CTA evidence for an acute pulmonary thromboembolism.
Extensive pulmonary metastatic disease.
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 Pulmonary edema or atypical pneumonia would be alternative considerations in the
appropriate clinical setting.
Mediastinal and bilateral hilar candi metastatic disease.
The extent of metastatic disease is more completely assessed on the outpatient PET/CT performed earlier in the same day.
PET-CT 06/2025: Numerous bilateral hypermetabolic metastatic pulmonary nodules/masses.
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
FDG avid metastatic hilar and mediastinal adenopathy.
Hypermetabolic right adrenal gland metastatic focus. No FDG avid hepatic metastatic lesion.
Hypermetabolic pancreatic mass, consistent with neoplasm.
Small metastatic mesenteric nodules with increased metabolic activity.
2 cm focal FDG avid sigmoid mass, consistent with neoplasm.
Small osseous metastatic lesions involving the lateral left superior pubic ramus and left posterior periacetabular ilium.
Brain MRI 06/2025: Several (approximately 4) enhancing intracranial brain masses at the ríos-white matter junctions with associated vasogenic edema, highly suspicious for metastases. No MR evidence for acute infarct or hemorrhage.
Lung biopsy 05/2025: Poorly differentiated invasive adenocarcinoma, NGS negative, PD-L1 expression 95%
ECHO 05/2025: 1. Normal left ventricular size, wall thickness and systolic function. Ejection fraction of 65-70%.
2. Aortic sclerosis without stenosis. Mild aortic regurgitation.
3. Mildly dilated proximal ascending aorta measures 4.0 cm.
4. Compared to 07/07/24: prior Asc aorta measurement was 4.2cm.
Subjective Data
-
Date of Service:
Date of Service: July 11, 2025
Chief Complaint: Pulmonary Follow Up (Hypoxemic respiratory failure)
Subjective:
Feels slightly better today
Oxygen requirements improved
Objective Data
Data Reviewed
Vital Signs / I&O / Oxygen:
Vital Signs
Temp Pulse Resp BP Pulse Ox
97 F 74 28 112/65 97
07/11/25 07:40 07/11/25 11:14 07/11/25 11:14 07/11/25 09:02 07/11/25 11:14
Intake and Output
07/10/25 07/11/25 07/12/25
06:59 06:59 06:59
Intake Total 1440 / 1440 240 / 240
Output Total 225 / 225 400 / 400
Balance 1215 / 1215 -160 / -160
SaO2 97
Nasal Cannula flow liters per 8
minute
Physical Exam
General: Comfortable
HEENT: Normocephalic
Cardiovascular: S1-S2
Respiratory: Crackles (Bases), Rhonchi (Minimal bilateral/coarse) and Other (Coarse breath sounds bilaterally)
GI: Soft and Non Distended
Neurology: Awake, Alert, Oriented and No Motor Deficits
Skin: Warm
Labs/Micro/Reports
Lab Data
07/11/25 04:38
07/11/25 04:38
Microbiology
07/05/25 16:59 Blood/Venous Blood Culture - Final
No Growth - Final Report
07/05/25 16:59 Blood/Venous Blood Culture - Final
No Growth - Final Report
--- NOTE | 2025-07-11 14:52 | PTCARENOTE ---
Patient out of bed today, walking to bathroom. Denying pain when asked, oxygen weaned to 7 liters midflow. Family at bedside. Patient stating that he is having a good day, at bedside.
[2025-07-11] MEDS: NOVOLOG FLEXPEN SC (16:35)
[2025-07-11] MEDS: CRESTOR 10 MG PO (17:37)
[2025-07-11] MEDS: LOVENOX 40 MG SC (17:37)
[2025-07-11 17:58] LABS: Glucose - Point of Care 278 mg/dl (70-99)
[2025-07-11] MEDS: NOVOLOG FLEXPEN 10 UNITS SC (18:12)
--- NOTE | 2025-07-11 19:51 | PTCARENOTE ---
Assumed care of pt from dayshift RN after change of shift report. Pt AAOx3, family at bedside. afib on monitor HR 94 bpm. satting 95% on 4L 02. Pt SOB on exertion. denies dyspnea at rest. assessment as documented call light in reach.
[2025-07-11] MEDS: LANTUS 0.22 UNITS SC (21:20)
[2025-07-11 21:30] LABS: Glucose - Point of Care 207 mg/dl (70-99)
[2025-07-12] VITALS (13 sets, daily range): BP systolic 107–132; BP diastolic 57–97; PULSE 111; O2SAT 94; BMI 25.9
[2025-07-12 05:38] LABS: Hematocrit 30.0 % (39.0-52.0); Hemoglobin 10.3 g/dL (13.0-18.0); Mean Corp Hgb Conc. 34.3 g/dL (33.0-37.0); Mean Corpuscular Volume 87.5 fL (80.0-94.0); Platelet Count 372 10^3/uL (130-400); Red Cell Dist. Width 14.0 % (11.5-14.5)
[2025-07-12 05:47] LABS: Blood Urea Nitrogen 54 mg/dl (9-20); Carbon Dioxide 19 mmol/L (22-30); Chloride 112 mmol/L (98-107); Estimated Creatinine Clearance 52 ml/min; eGFR > 60.00
[2025-07-12 05:58] LABS: Calcium 8.7 mg/dl (8.4-10.2); Glucose 247 mg/dl (70-99); Potassium 4.2 mmol/L (3.5-5.1); Sodium 138 mmol/L (135-145)
[2025-07-12] MEDS: SYNTHROID 75 MCG PO (06:25)
[2025-07-12] MEDS: DUONEB 3 ML INH ×2 (07:30→11:10)
[2025-07-12] MEDS: CARDIZEM CD 360 MG PO (07:58)
[2025-07-12 07:59] LABS: Absolute Neutrophils -Man Diff 12.1 10^3/uL (1.4-6.5); Platelets Checked Yes
[2025-07-12] MEDS: PROTONIX 40 MG PO (07:59)
[2025-07-12] MEDS: SOLU-MEDROL PF 40 MG IV (07:59)
[2025-07-12 08:00] LABS: Normal RBC Morphology Yes; Total Cells Counted 100
[2025-07-12] MEDS: VITAMIN B-12 1000 MCG PO (08:00)
[2025-07-12] MEDS: VITAMIN D3 (cholecalciferol) 25 MCG PO (08:01)
[2025-07-12] MEDS: ZITHROMAX 500 MG PO (08:01)
[2025-07-12] MEDS: NOVOLOG FLEXPEN-LOW RESISTANCE 2 UNITS SC ×2 (08:17→13:20)
--- NOTE | 2025-07-12 08:18 | W.PN.ONC2 ---
Today's Communication / Plan
-
Continue steroids, would wean as able
Continue antibiotics
Weaning O2
Encouraged OOB and working w/ PT
If PS allows, will consider outpatient Keytruda
and DIL at bedside provided with updates and questions answered
Impression
Impression
hypoxic respiratory failure -- ground glass opacities with diffdx lymphangitic carcinomatosis, pulmonary edema, atypical pneumonia
metastatic lung adenocarcinoma
brain mets s/p gamma knife
uncontrolled DM
Plan
Plan
Continue steroids, would wean as able
Continue antibiotics
Weaning O2
Encouraged OOB and working w/ PT
If PS allows, will consider outpatient Keytruda
Subjective/Objective
Subjective
4L midflow
working with PT, ambulating with walker. spent several hours in the chair yesterday per family
Vital Signs:
Vital Signs
Temp Pulse Resp BP Pulse Ox
98.6 F 86 32 112/78 94
07/11/25 22:47 07/12/25 07:58 07/12/25 07:33 07/12/25 07:58 07/12/25 07:33
Lab Results:
Laboratory Data
WBC 14.3 10^3/uL (4.8-10.8) H 07/12/25 05:06
Hgb 10.3 g/dL (13.0-18.0) L 07/12/25 05:06
Plt Count 372 10^3/uL (130-400) 07/12/25 05:06
eGFR > 60.00 07/12/25 05:06
Physical Exam
HEENT: No Jaundice
Pulmonary: Rhonchi
GI: Soft
Extremities: Pulses Present
[2025-07-12] MEDS: NOVOLOG FLEXPEN 10 UNITS SC ×3 (08:21→17:38)
[2025-07-12 08:25] LABS: Glucose - Point of Care 240 mg/dl (70-99)
[2025-07-12] MEDS: OCEAN, SALINE MIST 2 SPRAYS NASAL (09:37)
--- NOTE | 2025-07-12 10:02 | W.PN.PUL3 ---
Today's Communication / Plan
-
Cont. O2 now 4L at rest, easily desturated with any activity. Cont. To wean as able.
PT/OT as able
Transioned to prednisone today
complete 7d of ABX
Improved but not ready for DC, hopefully in next 24-48h if continues to improve.
Assessment
-
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 S/p brain radiation, who presented to the hospital with shortness of breath and chills. Patient was noted to be
hypoxic in the emergency room in 80s and was placed on supplemental oxygen. Imaging was negative for any pulmonary embolism per was suggestive of interseptal thickening in the mid to lower lobes concerning for lymphangitic spread versus atypical
pneumonia versus pulmonary edema. Patient was admitted to the hospital and was started on supplemental oxygen, he also received diuretics as well as steroids along with ceftriaxone and Zithromax. Patient progressively has increasing oxygen
requirement and today became more hypoxic despite being on 15 L supplemental oxygen. Patient is being transferred to high flow nasal cannula and pulmonary consultation was requested for further input.
With his recent diagnosis of lung cancer, patient had brain MRI which was positive for metastatic lesions. PET CT scan also positive for metastatic lesion in colon, adrenal glands and osseous metastasis. NexGen ration sequencing negative for any
identifiable mutation and PD-L1 expression was positive at 95%. Oncology service has been on case and patient is scheduled to initiate palliative immunotherapy on 07/09/2025.
#1. Acute severe hypoxic respiratory failure
- CT-PE chest and PET-CT scan reviewed, suggestive of multiple metastatic lesions and lymphangitic spread.
Patient does not appear volume loaded on exam and has fairly unremarkable echocardiogram.
Atypical pneumonia is in differential diagnosis and agree with continuing treatment with ceftriaxone and azithromycin as ordered-with negative cultures complete total 7 days.(To complete antibiotics 05/11/2025)
Patient was admitted to the hospital with hypoxia on 07/06, and has progressively increasing oxygen requirement noted, despite antibiotics and diuretics along with prednisone.
- Continue mid flow 4 L at rest on 07/12/2025. Continue to monitor closely. Improved but easily desaturates with minimal activity.
- DCd Methylprednisolone -60 mg (75 mg prednisone equivalent)- transitioned to prednisone 40 mg 07/12/2025-With a slow taper going forward --?For possible component inflammatory pneumonitis -
- Influenza A, B, COVID-19 screen negative. Legionella and streptococcal pneumonia antigen negative. Blood cultures negative so far.
-If this is lymphangitic spread unlikely to improve-oncology correspondence reviewed-prognosis guarded. At this point all therapies on hold given clinical situation.
-Home O2 eval
--
- Multiple Discussions. with patient's , daughter in law and patient at bedside. If further worsening noted, patient will require intubation and mechanical ventilation. Considering high likelihood of lymphangitic spread of advanced poorly
differentiated adenocarcinoma causing hypoxia, have explained to the patient and his that patient may have a difficult time coming off the ventilator and we may not be successful in extubating.
Patient and family understand the risks involved and want to proceed with intubation if patient develops further respiratory compromise
#2. Metastatic poorly differentiated adenocarcinoma lung-metastatic to brain, contralateral lung and others.
- Patient has evidence of brain metastasis, s/p radiation, 1 session at [facility]
- PET scan also suggestive of adrenal gland osseous and sigmoid colon metastatic lesions
- Next generation sequencing negative, PD-L1 expression at 95%. Oncology service on case. Patient is scheduled for palliative immunotherapy per oncology notes-currently on hold .
-
#3. Rapid atrial fibrillation- heart rate improved.
-Cardiology has signed off
- Not a candidate for anticoagulation
Physical therapy/Occupational Therapy as tolerated.
Other medical diagnoses:
- Hypertension
- Hypothyroidism
- Hyperlipidemia
- Diabetes mellitus
- Mild hyponatremia
DVT prophylaxis. Subcu Lovenox 40
Prognosis is poor.
Dr. Null has updated family at bedside daily.
Improved but not ready for DC yet.
Data:
CT-PE 06/2025: No CTA evidence for an acute pulmonary thromboembolism.
Extensive pulmonary metastatic disease.
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 Pulmonary edema or atypical pneumonia would be alternative considerations in the
appropriate clinical setting.
Mediastinal and bilateral hilar candi metastatic disease.
The extent of metastatic disease is more completely assessed on the outpatient PET/CT performed earlier in the same day.
PET-CT 06/2025: Numerous bilateral hypermetabolic metastatic pulmonary nodules/masses.
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
FDG avid metastatic hilar and mediastinal adenopathy.
Hypermetabolic right adrenal gland metastatic focus. No FDG avid hepatic metastatic lesion.
Hypermetabolic pancreatic mass, consistent with neoplasm.
Small metastatic mesenteric nodules with increased metabolic activity.
2 cm focal FDG avid sigmoid mass, consistent with neoplasm.
Small osseous metastatic lesions involving the lateral left superior pubic ramus and left posterior periacetabular ilium.
Brain MRI 06/2025: Several (approximately 4) enhancing intracranial brain masses at the ríos-white matter junctions with associated vasogenic edema, highly suspicious for metastases. No MR evidence for acute infarct or hemorrhage.
Lung biopsy 05/2025: Poorly differentiated invasive adenocarcinoma, NGS negative, PD-L1 expression 95%
ECHO 05/2025: 1. Normal left ventricular size, wall thickness and systolic function. Ejection fraction of 65-70%.
2. Aortic sclerosis without stenosis. Mild aortic regurgitation.
3. Mildly dilated proximal ascending aorta measures 4.0 cm.
4. Compared to 07/07/24: prior Asc aorta measurement was 4.2cm.
Subjective Data
-
Date of Service:
Date of Service: July 12, 2025
Chief Complaint: Pulmonary Follow Up (Hypoxemic respiratory failure)
Subjective:
Feels better.
Improved coughing
Improved oxygen requirements
Review of Systems
Cardiopulmonary: Dyspnea, Dyspnea on Exertion and Cough
Objective Data
Data Reviewed
Vital Signs / I&O / Oxygen:
Vital Signs
Temp Pulse Resp BP Pulse Ox
98.6 F 86 32 112/78 90
07/11/25 22:47 07/12/25 07:58 07/12/25 07:33 07/12/25 07:58 07/12/25 08:00
Intake and Output
07/11/25 07/12/25 07/13/25
06:59 06:59 06:59
Intake Total 240 / 240
Output Total 400 / 400
Balance -160 / -160
SaO2 90
Nasal Cannula flow liters per 4
minute
Physical Exam
General: Comfortable
HEENT: Normocephalic
Cardiovascular: S1-S2
Respiratory: Crackles (Bases), Rhonchi (Minimal bilateral/coarse) and Other (Coarse breath sounds bilaterally)
GI: Soft and Non Distended
Neurology: Awake, Alert, Oriented and No Motor Deficits
Skin: Warm
Labs/Micro/Reports
Lab Data
07/12/25 05:06
07/12/25 05:06
Microbiology
07/05/25 16:59 Blood/Venous Blood Culture - Final
No Growth - Final Report
07/05/25 16:59 Blood/Venous Blood Culture - Final
No Growth - Final Report
--- NOTE | 2025-07-12 10:29 | RESPNOTE ---
Ambulation pulse ox done at this time
Resting RA SAT-86%
Placed on 1 liter no recovery within 1 minute
increased to 2 liters-87%
Increased to 3 liters -88%
Increased to 4 liters after 4 total minutes-91%
Walked patient with PT 4 liters- 93% walked approx 15 feet pleth not the best-83% increased to 6 liters walked 15ft 92%
Back in chair post walk on 6 liters 95%.
Decreased back to 4 at rest -96%
Decreased to 3 liters post walk resting in chair-94%
[2025-07-12] MEDS: ROCEPHIN 2000 MG IV (10:54)
[2025-07-12] MEDS: STERILE WATER FOR INJECTION 20 ML IV (10:54)
[2025-07-12 12:44] LABS: Glucose - Point of Care 206 mg/dl (70-99)
--- NOTE | 2025-07-12 13:05 | W.PN.HOSP.TC ---
Today's Communication/Plan
-
Now on oral steroids
Completed antibiotic course
Insulin adjusted
Continue to wean O2 as tolerated
Transfer out of IMU
Assessment / Plan
Assessment / Plan
Gen-AAOx3, NAD
HEENT-NC, AT, anicteric, clear oral mm
Neck-supple
CV-reg, no M, +S1/S2
Lungs-bilateral rales, mild end expiratory wheezing bilaterally, on mid flow nasal cannula 3 L
Abd-soft, NT, ND
Ext-no edema
Musculoskeletal-no cyanosis, clubbing
Skin-warm and dry
Neuro-grossly non-focal
Psych-calm, cooperative
#Acute hypoxic respiratory failure -suspect multifactorial etiology including advanced lung cancer with lymphangitic metastases versus cannot rule out underlying community-acquired pneumonia. Pulmonary edema seems unlikely, did not respond to a
dose of IV Lasix and BNP is not significantly elevated.
CT chest on admission negative for pulmonary embolism. Does show extensive pulmonary metastatic disease, possible lymphangitic carcinomatosis.
Started on IV steroids 07/07 by pulmonary. And now off of IV steroids. Continue with 40 mg p.o. prednisone.
Continue nebs.
Unfortunately, overall prognosis remains poor as - malignancy is the driving factor behind his respiratory failure.
Status post high flow nasal cannula currently on 3 L of mid flow. Will require home O2 eval prior to discharge.
#Sepsis -possibly due to community-acquired pneumonia.
Presentation with fever, leukocytosis, tachycardia. Continue ceftriaxone, azithromycin.
Blood cultures negative so far. COVID and influenza negative.
Completed azithromycin and ceftriaxone antibiotic course for 7 days
#Generalized weakness -progressing over the past few weeks. Likely multifactorial etiology including metastatic lung cancer, possible pneumonia, volume depletion with hypotension.
Hydrated with IV fluids, now off.
Near syncopal episode at home noted by family.
# Nonischemic myocardial injury likely secondary to severe hypoxemia, sepsis
#Hyponatremia -suspect hypovolemic given presentation with hypotension, prerenal azotemia, near syncope. Sodium improving, 134.
Permanently discontinue hydrochlorothiazide.
Low serum bicarbonate is in compensation to his respiratory alkalosis.
#Metastatic pulmonary adenocarcinoma -under the care of [facility], Dr. Martin. Cerebral mets noted on brain MRI 06/03/2025. Scheduled for immunotherapy to start as outpatient this week. Had gamma knife radiation to the brain recently,
completed a course of steroids this week.
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 Hypermetabolic pancreatic mass consistent with neoplasm. Sigmoid mass consistent with neoplasm.
Oncology evaluated-not not a candidate for inpatient chemo or immunotherapy in the current setting.
#DM2 with hyperglycemia -hemoglobin A1c 8.9%. Steroid-induced hyperglycemia
Increase Lantus to 22 units at bedtime, add aspart 10 unites with meals. Continue insulin sliding scale.
ADA added. POC 240 am.
#Essential hypertension -Home meds have been on hold for hypotension but blood pressure and heart rate now elevated.
Was on diltiazem 360 mg daily, hydrochlorothiazide 25 mg daily, losartan 50 mg twice daily, spironolactone 50 mg daily prior to admission.
Will resume diltiazem at lower dose. Keep other meds on hold for now. Blood pressure controlled 112/78
#Afib- RVR likely worsened with severe hypoxemia
continue cardizem 360mg daily
Not a candidate for anticoagulation in the setting of metastatic disease with recent treatment of brain mets
Cardiology signed off
Echo EF of 65 to 70%.
Hypothyroidism -continue levothyroxine. TSH 4.9, free T4 1.4.
Chronic anemia -hemoglobin at baseline.
Hyperlipidemia -rosuvastatin.
Full code
Discussed with patient spouse and [id number] at bedside in details
Dispo-eventually plan for home. Family requesting assistance at home. Case management following.
Anticipated Discharge: > 48 hours
Subjective/Interval History
-
Date of Service: July 12, 2025
Hepatitis improved
Now on 3 to 4 L of oxygenation.
Feels dyspneic with overexertion.
Objective Data
-
Labs:
Laboratory Results
07/12/25
05:06
WBC 14.3 H
Hgb 10.3 L
Hct 30.0 L
Plt Count 372
Sodium 138
Potassium 4.2
Chloride 112 H
Carbon Dioxide 19 L
BUN 54 H
Creatinine 1.0
Glucose 247 H
Calcium 8.7
Vital Signs:
Vital Signs
Temp Pulse Resp BP Pulse Ox
98.0 F 81 28 112/78 95
07/12/25 11:00 07/12/25 11:10 07/12/25 11:10 07/12/25 07:58 07/12/25 11:10
I&O
07/11/25 07/12/25 07/13/25
06:59 06:59 06:59
Intake Total 240 / 240
Output Total 400 / 400
Balance -160 / -160
Data Reviewed
-
Total Time Spent with Patient (in minutes): 55
[2025-07-12] MEDS: AYR SALINE NASAL GEL 1 APPLIC NASAL (13:44)
--- NOTE | 2025-07-12 15:43 | PTCARENOTE ---
report to [address] [place] [address]
--- NOTE | 2025-07-12 17:19 | PTCARENOTE ---
Pt. transferred from IMU. Report received from Lázaro.
[2025-07-12 17:33] LABS: Glucose - Point of Care 316 mg/dl (70-99)
[2025-07-12] MEDS: LOVENOX 40 MG SC (17:34)
[2025-07-12] MEDS: CRESTOR 10 MG PO (17:35)
[2025-07-12] MEDS: NOVOLOG FLEXPEN-LOW RESISTANCE 4 UNITS SC (17:38)
[2025-07-12] MEDS: XALATAN OPHTHALMIC SOLUTION 1 DROP RIGHT EYE (17:39)
[2025-07-12] MEDS: AYR SALINE NASAL GEL NASAL (17:39)
[2025-07-12] MEDS: DUONEB INH (20:37)
[2025-07-12] MEDS: LANTUS 0.22 UNITS SC (21:00)
[2025-07-12 21:09] LABS: Glucose - Point of Care 320 mg/dl (70-99)
[2025-07-12 21:27] LABS: Glucose - Point of Care 304 mg/dl (70-99)
[2025-07-12] MEDS: NOVOLOG FLEXPEN 5 UNITS SC (21:30)
[2025-07-12 23:31] LABS: Glucose - Point of Care 129 mg/dl (70-99)
[2025-07-13] VITALS (7 sets, daily range): BP systolic 110–135; BP diastolic 62–75; PULSE 86; O2SAT 92
[2025-07-13] MEDS: SYNTHROID 75 MCG PO (05:29)
[2025-07-13 06:21] LABS: Hematocrit 31.6 % (39.0-52.0); Hemoglobin 10.4 g/dL (13.0-18.0); Mean Corp Hgb Conc. 32.9 g/dL (33.0-37.0); Mean Corpuscular Volume 87.5 fL (80.0-94.0); Platelet Count 381 10^3/uL (130-400); Red Cell Dist. Width 14.4 % (11.5-14.5)
[2025-07-13 06:41] LABS: Blood Urea Nitrogen 45 mg/dl (9-20); Calcium 8.8 mg/dl (8.4-10.2); Carbon Dioxide 22 mmol/L (22-30); Chloride 113 mmol/L (98-107); Estimated Creatinine Clearance 58 ml/min; Glucose 48 mg/dl (70-99); Potassium 4.3 mmol/L (3.5-5.1); Sodium 141 mmol/L (135-145); eGFR > 60.00
[2025-07-13 06:44] LABS: Glucose - Point of Care 68 mg/dl (70-99)
[2025-07-13 06:59] LABS: Nucleated Red Blood Cells % 0.4 % (-)
[2025-07-13 07:04] LABS: Glucose - Point of Care 73 mg/dl (70-99)
[2025-07-13] MEDS: NOVOLOG FLEXPEN SC (08:22)
[2025-07-13] MEDS: PROTONIX 40 MG PO (08:23)
[2025-07-13] MEDS: CARDIZEM CD 360 MG PO (08:23)
[2025-07-13] MEDS: NOVOLOG FLEXPEN-LOW RESISTANCE SC (08:23)
[2025-07-13] MEDS: VITAMIN D3 (cholecalciferol) 25 MCG PO (08:23)
[2025-07-13] MEDS: DELTASONE 40 MG PO (08:24)
[2025-07-13] MEDS: VITAMIN B-12 1000 MCG PO (08:24)
[2025-07-13] MEDS: DUONEB 3 ML INH (09:07)
[2025-07-13 09:11] LABS: Glucose - Point of Care 125 mg/dl (70-99)
--- NOTE | 2025-07-13 09:48 | CM ---
Addendum entered by Yoana Zambrano 07/13/25 14:55:
[facility] has sent all clinical information to DME company as per her note. confirm family support and patient will need IMM prior to discharge.
Original Note:
Patient seen at bedside on [address]. Patient family present. Patient asking for home VN; family discussed options and requested referral to VN. CM will send tt to liaison. Patient family stated home O2 assessment was completed and patient dropped
to 85%. They understood reassessment would be needed closer to discharge and they would like the most local provider. CM review with liaison. Patient family also asking for hospital bed and wheelchair, walker. CM will continue to follow for
discharge planning needs.
Plan; home with [facility]; asking for DME; walker, wheelchair and bed; watch for home O2 assessment.
--- NOTE | 2025-07-13 10:44 | W.PN.PUL3 ---
Today's Communication / Plan
-
Completed antibiotic therapy
Continue prednisone 40 mg and decrease by 10 mg every 72 hours to off with close observation.
Oxygen plantation currently on 3 L.
May discharge on nebulizer and DuoNebs as needed. For secretion clearance.
Hopefully can be discharged soon.
Patient is very deconditioned as well. Physical therapy as able
No additional recommendation from the pulmonary perspective
Oncology follow-up to rediscuss possible therapy.
Assessment
-
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 S/p brain radiation, who presented to the hospital with shortness of breath and chills. Patient was noted to be
hypoxic in the emergency room in 80s and was placed on supplemental oxygen. Imaging was negative for any pulmonary embolism per was suggestive of interseptal thickening in the mid to lower lobes concerning for lymphangitic spread versus atypical
pneumonia versus pulmonary edema. Patient was admitted to the hospital and was started on supplemental oxygen, he also received diuretics as well as steroids along with ceftriaxone and Zithromax. Patient progressively has increasing oxygen
requirement and today became more hypoxic despite being on 15 L supplemental oxygen. Patient is being transferred to high flow nasal cannula and pulmonary consultation was requested for further input.
With his recent diagnosis of lung cancer, patient had brain MRI which was positive for metastatic lesions. PET CT scan also positive for metastatic lesion in colon, adrenal glands and osseous metastasis. NexGen ration sequencing negative for any
identifiable mutation and PD-L1 expression was positive at 95%. Oncology service has been on case and patient is scheduled to initiate palliative immunotherapy on 07/09/2025.
#1. Acute severe hypoxic respiratory failure
- CT-PE chest and PET-CT scan reviewed, suggestive of multiple metastatic lesions and lymphangitic spread.
Patient does not appear volume loaded on exam and has fairly unremarkable echocardiogram.
Atypical pneumonia is in differential diagnosis and agree with continuing treatment with ceftriaxone and azithromycin as ordered-with negative cultures complete total 7 days.(To complete antibiotics 05/11/2025)
Patient was admitted to the hospital with hypoxia on 07/06, and has progressively increasing oxygen requirement noted, despite antibiotics and diuretics along with prednisone.
- Continue mid flow 3 L at rest on 07/12/2025. Continue to monitor closely. Improved but easily desaturates with minimal activity.
- transitioned to prednisone 40 mg 07/12/2025-With a slow taper going forward --?For possible component inflammatory pneumonitis - Decrease by 10 mg every 72 hours to off with close outpatient pulmonary observation.
- Influenza A, B, COVID-19 screen negative. Legionella and streptococcal pneumonia antigen negative. Blood cultures negative so far.
-If this is lymphangitic spread unlikely to improve-oncology correspondence reviewed-prognosis guarded. At this point all therapies on hold given clinical situation.
-Home O2 eval- Currently on 3 L.
Hopefully can discharge soon.
-
Will transition to nebulizers on as-needed basis.For secretion clearance.
--
- Multiple Discussions. with patient's , daughter in law and patient at bedside. If further worsening noted, patient will require intubation and mechanical ventilation. Considering high likelihood of lymphangitic spread of advanced poorly
differentiated adenocarcinoma causing hypoxia, have explained to the patient and his that patient may have a difficult time coming off the ventilator and we may not be successful in extubating.
Patient and family understand the risks involved and want to proceed with intubation if patient develops further respiratory compromise
#2. Metastatic poorly differentiated adenocarcinoma lung-metastatic to brain, contralateral lung and others.
- Patient has evidence of brain metastasis, s/p radiation, [address] [facility]
- PET scan also suggestive of adrenal gland osseous and sigmoid colon metastatic lesions
- Next generation sequencing negative, PD-L1 expression at 95%. Oncology service on case. Patient is scheduled for palliative immunotherapy per oncology notes-currently on hold .
-
#3. Rapid atrial fibrillation- heart rate improved.
-Cardiology has signed off
- Not a candidate for anticoagulation
Patient deconditioned, was able to ambulate to the restroom. Physical therapy/Occupational Therapy as tolerated.
Other medical diagnoses:
- Hypertension
- Hypothyroidism
- Hyperlipidemia
- Diabetes mellitus
- Mild hyponatremia
DVT prophylaxis. Subcu Lovenox 40
Prognosis is poor.
Dr. Null has updated family at bedside daily.
-
He is clinically improving. Discharge planning when able.
Will need supplemental oxygen to go home to be arranged

Data:
CT-PE 06/2025: No CTA evidence for an acute pulmonary thromboembolism.
Extensive pulmonary metastatic disease.
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 Pulmonary edema or atypical pneumonia would be alternative considerations in the
appropriate clinical setting.
Mediastinal and bilateral hilar candi metastatic disease.
The extent of metastatic disease is more completely assessed on the outpatient PET/CT performed earlier in the same day.
PET-CT 06/2025: Numerous bilateral hypermetabolic metastatic pulmonary nodules/masses.
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
FDG avid metastatic hilar and mediastinal adenopathy.
Hypermetabolic right adrenal gland metastatic focus. No FDG avid hepatic metastatic lesion.
Hypermetabolic pancreatic mass, consistent with neoplasm.
Small metastatic mesenteric nodules with increased metabolic activity.
2 cm focal FDG avid sigmoid mass, consistent with neoplasm.
Small osseous metastatic lesions involving the lateral left superior pubic ramus and left posterior periacetabular ilium.
Brain MRI 06/2025: Several (approximately 4) enhancing intracranial brain masses at the ríos-white matter junctions with associated vasogenic edema, highly suspicious for metastases. No MR evidence for acute infarct or hemorrhage.
Lung biopsy 05/2025: Poorly differentiated invasive adenocarcinoma, NGS negative, PD-L1 expression 95%
ECHO 05/2025: 1. Normal left ventricular size, wall thickness and systolic function. Ejection fraction of 65-70%.
2. Aortic sclerosis without stenosis. Mild aortic regurgitation.
3. Mildly dilated proximal ascending aorta measures 4.0 cm.
4. Compared to 07/07/24: prior Asc aorta measurement was 4.2cm.
Subjective Data
-
Date of Service:
Date of Service: July 13, 2025
Chief Complaint: Pulmonary Follow Up (Hypoxemic respiratory failure)
Subjective:
He is clinically improved
Oxygen mentation improved
No significant phlegm production or hemoptysis
Review of Systems
Cardiopulmonary: Dyspnea on Exertion (Improved)
Objective Data
Data Reviewed
Vital Signs / I&O / Oxygen:
Vital Signs
Temp Pulse Resp BP Pulse Ox
98 F 84 20 124/68 94
07/13/25 07:00 07/13/25 09:11 07/13/25 09:11 07/13/25 08:23 07/13/25 09:11
Intake and Output
07/12/25 07/13/25 07/14/25
06:59 06:59 06:59
Intake Total 120 / 120
Balance 120 / 120
SaO2 94
Nasal Cannula flow liters per 3
minute
Physical Exam
General: Comfortable
HEENT: Normocephalic
Cardiovascular: S1-S2
Respiratory: Crackles (Bases), Rhonchi (Minimal bilateral/coarse) and Other (Coarse breath sounds bilaterally)
GI: Soft and Non Distended
Neurology: Awake, Alert, Oriented and No Motor Deficits
Skin: Warm
Labs/Micro/Reports
Lab Data
07/13/25 05:28
07/13/25 05:28
Microbiology
07/05/25 16:59 Blood/Venous Blood Culture - Final
No Growth - Final Report
07/05/25 16:59 Blood/Venous Blood Culture - Final
No Growth - Final Report
--- NOTE | 2025-07-13 10:46 | VNURNOTE ---
Home Health Liaison met with patient and family at bedside to discuss [facility] nurse/therapy, visits, schedule and homebound status. All are agreeable and understand that visits at home will be 2-3 x per week to assess and teach medical management.
All are aware that [facility] will contact them for start of care in 1-2 days after discharge from . Provided contact number for [facility]. Spouse stated they do not need a rolling walker, they have one at home. Confirmed with spouse and daughter
that they are requesting a hospital bed and wheelchair.
[facility] referral completed in [facility].
Hospital bed & wheelchair Rx, clinicals faxed to [facility]: Singh herrera [phone]/ fax [phone].
Home 02 testing may need to be repeated, was done 07/12, per notes, not ready for DC yet. Not sent to DME co. yet.
[2025-07-13 12:13] LABS: Glucose - Point of Care 316 mg/dl (70-99)
[2025-07-13] MEDS: NOVOLOG FLEXPEN 10 UNITS SC ×2 (12:20→16:41)
[2025-07-13] MEDS: NOVOLOG FLEXPEN-LOW RESISTANCE 4 UNITS SC (12:21)
--- NOTE | 2025-07-13 12:31 | W.PN.HOSP.TC ---
Addendum entered and electronically signed by Beny Gonzales MD 07/13/25 13:27:
Patient is in need of a nebulizer due to need for secretion clearance
Original Note:
Today's Communication/Plan
-
Prednisone taper regimen
start dispo process
will probably require o2 on discharge
monitor poc
oob/pt
Assessment / Plan
Assessment / Plan
Gen-AAOx3, NAD
HEENT-NC, AT, anicteric, clear oral mm
Neck-supple
CV-reg, no M, +S1/S2
Lungs-bilateral rales, mild end expiratory wheezing bilaterally, on mid flow nasal cannula 4 L
Abd-soft, NT, ND
Ext-no edema
Musculoskeletal-no cyanosis, clubbing
Skin-warm and dry
Neuro-grossly non-focal
Psych-calm, cooperative
#Acute hypoxic respiratory failure -suspect multifactorial etiology including advanced lung cancer with lymphangitic metastases versus cannot rule out underlying community-acquired pneumonia. Pulmonary edema seems unlikely, did not respond to a
dose of IV Lasix and BNP is not significantly elevated.
CT chest on admission negative for pulmonary embolism. Does show extensive pulmonary metastatic disease, possible lymphangitic carcinomatosis.
Started on IV steroids 07/07 by pulmonary. And now off of IV steroids. Continue with 40 mg p.o. prednisone. taper therapy on discharge.
Continue nebs and now transitioned to prn
Unfortunately, overall prognosis remains poor as - malignancy is the driving factor behind his respiratory failure.
Status post high flow nasal cannula currently on 4 L of mid flow. Will require home O2 eval prior to discharge.
#Sepsis -possibly due to community-acquired pneumonia.
Presentation with fever, leukocytosis, tachycardia. Continue ceftriaxone, azithromycin.
Blood cultures negative so far. COVID and influenza negative.
Completed azithromycin and ceftriaxone antibiotic course for 7 days
#Generalized weakness -progressing over the past few weeks. Likely multifactorial etiology including metastatic lung cancer, possible pneumonia, volume depletion with hypotension.
Hydrated with IV fluids, now off.
Near syncopal episode at home noted by family.
# Nonischemic myocardial injury likely secondary to severe hypoxemia, sepsis
#Hyponatremia -suspect hypovolemic given presentation with hypotension, prerenal azotemia, near syncope. Sodium improving, 141.
Permanently discontinue hydrochlorothiazide.
#Metastatic pulmonary adenocarcinoma -under the care of [facility], Dr. Martin. Cerebral mets noted on brain MRI 06/03/2025. Scheduled for immunotherapy to start as outpatient this week. Had gamma knife radiation to the brain recently,
completed a course of steroids this week.
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 Hypermetabolic pancreatic mass consistent with neoplasm. Sigmoid mass consistent with neoplasm.
Oncology evaluated-not not a candidate for inpatient chemo or immunotherapy in the current setting.
#DM2 with hyperglycemia -hemoglobin A1c 8.9%. Steroid-induced hyperglycemia
Increase Lantus to 22 units at bedtime, add aspart 10 unites with meals. Continue insulin sliding scale.
ADA added. POC 125 am.
#Essential hypertension -Home meds have been on hold for hypotension but blood pressure and heart rate now elevated.
Was on diltiazem 360 mg daily, hydrochlorothiazide 25 mg daily, losartan 50 mg twice daily, spironolactone 50 mg daily prior to admission.
Will resume diltiazem. Keep other meds on hold for now. Blood pressure controlled 124/68
#Afib- RVR likely worsened with severe hypoxemia
continue cardizem 360mg daily
Not a candidate for anticoagulation in the setting of metastatic disease with recent treatment of brain mets
Cardiology signed off
Echo EF of 65 to 70%.
Hypothyroidism -continue levothyroxine. TSH 4.9, free T4 1.4.
Chronic anemia -hemoglobin at baseline.
Hyperlipidemia -rosuvastatin.
Full code
Discussed with patient spouse and [id number] at bedside in details on daily basis
Dispo-eventually plan for home. Family requesting assistance at home. Case management following.
patient is in need of a semi-electric hospital bed with foam mattress due to the need to facilitate frequent repositioning to prevent bed ulcers and pressure points.
Patient is in need of a wheelchair due to ambulatory dysfunction. A walker has been considered but is clinically ineffective due to patient's condition.
d/w with pulmonary
Anticipated Discharge: 24 - 48 hours
Subjective/Interval History
-
Date of Service: July 13, 2025
remains on oxygen
doing better
Objective Data
-
Labs:
Laboratory Results
07/13/25
05:28
WBC 15.6 H
Hgb 10.4 L
Hct 31.6 L
Plt Count 381
Sodium 141
Potassium 4.3
Chloride 113 H
Carbon Dioxide 22
BUN 45 H
Creatinine 0.9
Glucose 48 L*
Calcium 8.8
Vital Signs:
Vital Signs
Temp Pulse Resp BP Pulse Ox
98 F 84 20 124/68 94
07/13/25 07:00 07/13/25 09:11 07/13/25 09:11 07/13/25 08:23 07/13/25 09:11
I&O
07/12/25 07/13/25 07/14/25
06:59 06:59 06:59
Intake Total 120 / 120
Balance 120 / 120
Data Reviewed
-
Total Time Spent with Patient (in minutes): 55
--- NOTE | 2025-07-13 13:53 | VNURNOTE ---
Home Health Liaison met with patient and family at bedside to discuss [facility] nurse/therapy, visits, schedule and homebound status. All are agreeable and understand that visits at home will be 2-3 x per week to assess and teach medical management.
All are aware that [facility] will contact them for start of care in 1-2 days after discharge from . Provided contact number for [facility]. Spouse stated they do not need a rolling walker, they have one at home. Confirmed with spouse and daughter
that they are requesting a hospital bed and wheelchair. Per pulm notes, rec PRN nebulizer as well.
[facility] referral completed in [facility].
02, Neb machine, Hospital bed & wheelchair Rx, clinicals faxed to [facility]: Singh [phone]/ fax [phone].
Home 02 testing may need to be repeated, was done 07/12. Requested that wheelchair be delivered to hospital room prior to DC -spoke with Rep Winters.
--- NOTE | 2025-07-13 14:17 | W.PN.ONC2 ---
Today's Communication / Plan
-
.
Impression
Impression
hypoxic respiratory failure -- ground glass opacities with diffdx lymphangitic carcinomatosis, pulmonary edema, atypical pneumonia
metastatic lung adenocarcinoma
brain mets s/p gamma knife
uncontrolled DM
Plan
Plan
Continue steroids, would wean as able
Continue antibiotics
Weaning O2
Encouraged OOB and working w/ PT
If PS allows, will consider outpatient Keytruda
Subjective/Objective
Subjective
denies pain
OOB to chair
improved SOB
Vital Signs:
Vital Signs
Temp Pulse Resp BP Pulse Ox
98.3 F 94 20 123/64 94
07/13/25 11:00 07/13/25 11:00 07/13/25 11:00 07/13/25 11:00 07/13/25 13:40
Lab Results:
Laboratory Data
WBC 15.6 10^3/uL (4.8-10.8) H 07/13/25 05:28
Hgb 10.4 g/dL (13.0-18.0) L 07/13/25 05:28
Plt Count 381 10^3/uL (130-400) 07/13/25 05:28
eGFR > 60.00 07/13/25 05:28
Physical Exam
HEENT: Moist Mucous Membranes; No Jaundice
GI: Soft
Extremities: Pulses Present; No Edema
[2025-07-13 16:41] LABS: Glucose - Point of Care 181 mg/dl (70-99)
[2025-07-13] MEDS: NOVOLOG FLEXPEN-LOW RESISTANCE 1 UNITS SC (16:41)
[2025-07-13] MEDS: CRESTOR 10 MG PO (17:38)
[2025-07-13] MEDS: LOVENOX 40 MG SC (17:38)
[2025-07-13 21:36] LABS: Glucose - Point of Care 223 mg/dl (70-99)
[2025-07-13] MEDS: LANTUS 0.22 UNITS SC (21:53)
[2025-07-14 03:00] VITALS: BP 133/75
[2025-07-14 03:01] LABS: Glucose - Point of Care 183 mg/dl (70-99)
[2025-07-14] MEDS: SYNTHROID 75 MCG PO (05:45)
[2025-07-14 07:00] VITALS: BP 138/77
[2025-07-14 07:00] LABS: Hematocrit 31.4 % (39.0-52.0); Hemoglobin 10.4 g/dL (13.0-18.0); Mean Corp Hgb Conc. 33.1 g/dL (33.0-37.0); Mean Corpuscular Volume 89.0 fL (80.0-94.0); Platelet Count 337 10^3/uL (130-400); Red Cell Dist. Width 14.7 % (11.5-14.5)
[2025-07-14 07:25] LABS: Blood Urea Nitrogen 43 mg/dl (9-20); Calcium 8.4 mg/dl (8.4-10.2); Carbon Dioxide 25 mmol/L (22-30); Chloride 111 mmol/L (98-107); Estimated Creatinine Clearance 58 ml/min; Glucose 96 mg/dl (70-99); Potassium 4.2 mmol/L (3.5-5.1); Sodium 139 mmol/L (135-145); eGFR > 60.00
[2025-07-14 08:20] LABS: Glucose - Point of Care 69 mg/dl (70-99)
[2025-07-14] MEDS: NOVOLOG FLEXPEN SC ×2 (08:21→12:26)
[2025-07-14 08:22] LABS: Nucleated Red Blood Cells % 0.4 % (-)
[2025-07-14] MEDS: NOVOLOG FLEXPEN-LOW RESISTANCE SC ×2 (08:22→12:26)
[2025-07-14 08:41] LABS: Glucose - Point of Care 76 mg/dl (70-99)
--- NOTE | 2025-07-14 09:13 | W.PN.PUL3 ---
Today's Communication / Plan
-
Completed antibiotic therapy
Continue prednisone 40 mg and decrease by 10 mg every 72 hours to off with close observation.
Currently on 3 L - home O2 assessment prior to discharge or at home via [facility]
May discharge on nebulizer and DuoNebs as needed. For secretion clearance.
Patient is very deconditioned as well. Physical therapy as able
No additional recommendation from the pulmonary perspective
Oncology follow-up to rediscuss possible therapy.
No additional recommendations at this time. Pulmonary service will now sign off. Please reconsult if there are any additional questions/concerns, or if patient's respiratory status deteriorates.
Assessment
-
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 S/p brain radiation, who presented to the hospital with shortness of breath and chills. Patient was noted to be
hypoxic in the emergency room in 80s and was placed on supplemental oxygen. Imaging was negative for any pulmonary embolism per was suggestive of interseptal thickening in the mid to lower lobes concerning for lymphangitic spread versus atypical
pneumonia versus pulmonary edema. Patient was admitted to the hospital and was started on supplemental oxygen, he also received diuretics as well as steroids along with ceftriaxone and Zithromax. Patient progressively has increasing oxygen
requirement and today became more hypoxic despite being on 15 L supplemental oxygen. Patient is being transferred to high flow nasal cannula and pulmonary consultation was requested for further input.
With his recent diagnosis of lung cancer, patient had brain MRI which was positive for metastatic lesions. PET CT scan also positive for metastatic lesion in colon, adrenal glands and osseous metastasis. NexGen ration sequencing negative for any
identifiable mutation and PD-L1 expression was positive at 95%. Oncology service has been on case and patient is scheduled to initiate palliative immunotherapy on 07/09/2025.
#1. Acute severe hypoxic respiratory failure
- CT-PE chest and PET-CT scan reviewed, suggestive of multiple metastatic lesions and lymphangitic spread.
Patient does not appear volume loaded on exam and has fairly unremarkable echocardiogram.
Atypical pneumonia is in differential diagnosis and agree with continuing treatment with ceftriaxone and azithromycin as ordered-with negative cultures complete total 7 days.(To complete antibiotics 05/11/2025)
Patient was admitted to the hospital with hypoxia on 07/06, and has progressively increasing oxygen requirement noted, despite antibiotics and diuretics along with prednisone.
- Continue mid flow 3 L at rest on 07/12/2025. Continue to monitor closely. Improved but easily desaturates with minimal activity.
- transitioned to prednisone 40 mg 07/12/2025-With a slow taper going forward --?For possible component inflammatory pneumonitis - Decrease by 10 mg every 72 hours to off with close outpatient pulmonary observation.
- Influenza A, B, COVID-19 screen negative. Legionella and streptococcal pneumonia antigen negative. Blood cultures negative so far.
-If this is lymphangitic spread unlikely to improve-oncology correspondence reviewed-prognosis guarded. At this point all therapies on hold given clinical situation.
-Home O2 eval- Currently on 3 L.
Hopefully can discharged home today
-
Will transition to nebulizers on as-needed basis.For secretion clearance.
--
- Multiple Discussions. with patient's , daughter in law and patient at bedside. If further worsening noted, patient will require intubation and mechanical ventilation. Considering high likelihood of lymphangitic spread of advanced poorly
differentiated adenocarcinoma causing hypoxia, have explained to the patient and his that patient may have a difficult time coming off the ventilator and we may not be successful in extubating.
Patient and family understand the risks involved and want to proceed with intubation if patient develops further respiratory compromise
#2. Metastatic poorly differentiated adenocarcinoma lung-metastatic to brain, contralateral lung and others.
- Patient has evidence of brain metastasis, s/p radiation, [address] [facility]
- PET scan also suggestive of adrenal gland osseous and sigmoid colon metastatic lesions
- Next generation sequencing negative, PD-L1 expression at 95%. Oncology service on case. Patient is scheduled for palliative immunotherapy per oncology notes-currently on hold .
-
#3. Rapid atrial fibrillation- heart rate improved.
-Cardiology has signed off
- Not a candidate for anticoagulation
Patient deconditioned, was able to ambulate to the restroom. Physical therapy/Occupational Therapy as tolerated.
Other medical diagnoses:
- Hypertension
- Hypothyroidism
- Hyperlipidemia
- Diabetes mellitus
- Mild hyponatremia
DVT prophylaxis. Subcu Lovenox 40
Prognosis is poor.
Dr. Null has updated family at bedside daily.
-
He is clinically improving. To be discharged home today.
Will need supplemental oxygen to go home to be arranged
No additional recommendations at this time. Pulmonary service will now sign off. Thank you for allowing us to be involved in the care of this patient. Please reconsult if there are any additional questions/concerns, or if patient's respiratory
status deteriorates.

Data:
CT-PE 06/2025: No CTA evidence for an acute pulmonary thromboembolism.
Extensive pulmonary metastatic disease.
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 Pulmonary edema or atypical pneumonia would be alternative considerations in the
appropriate clinical setting.
Mediastinal and bilateral hilar candi metastatic disease.
The extent of metastatic disease is more completely assessed on the outpatient PET/CT performed earlier in the same day.
PET-CT 06/2025: Numerous bilateral hypermetabolic metastatic pulmonary nodules/masses.
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
FDG avid metastatic hilar and mediastinal adenopathy.
Hypermetabolic right adrenal gland metastatic focus. No FDG avid hepatic metastatic lesion.
Hypermetabolic pancreatic mass, consistent with neoplasm.
Small metastatic mesenteric nodules with increased metabolic activity.
2 cm focal FDG avid sigmoid mass, consistent with neoplasm.
Small osseous metastatic lesions involving the lateral left superior pubic ramus and left posterior periacetabular ilium.
Brain MRI 06/2025: Several (approximately 4) enhancing intracranial brain masses at the ríos-white matter junctions with associated vasogenic edema, highly suspicious for metastases. No MR evidence for acute infarct or hemorrhage.
Lung biopsy 05/2025: Poorly differentiated invasive adenocarcinoma, NGS negative, PD-L1 expression 95%
ECHO 05/2025: 1. Normal left ventricular size, wall thickness and systolic function. Ejection fraction of 65-70%.
2. Aortic sclerosis without stenosis. Mild aortic regurgitation.
3. Mildly dilated proximal ascending aorta measures 4.0 cm.
4. Compared to 07/07/24: prior Asc aorta measurement was 4.2cm.
Total time spent today was 37 minutes for this encounter. Time includes reviewing laboratory test/imaging results, reviewing pertinent medical records, obtaining and reviewing medical history, performing an appropriate exam, ordering medications,
tests and procedures. Time also includes documentation of this encounter, coordinating patient care and communicating with other healthcare professionals. Total time does not include separately billed tests performed on this date of service.
Subjective Data
-
Date of Service:
Date of Service: July 14, 2025
Chief Complaint: Pulmonary Follow Up (Hypoxemic respiratory failure)
Subjective:
Patient seen today at bedside. No events reported from overnight. On 3 L/min nasal cannula saturating 94%.
Review of Systems
General: Other (Negative unless mentioned above)
Objective Data
Data Reviewed
Vital Signs / I&O / Oxygen:
Vital Signs
Temp Pulse Resp BP Pulse Ox
98.1 F 71 17 133/75 95
07/14/25 03:00 07/14/25 03:00 07/14/25 03:00 07/14/25 03:00 07/14/25 03:00
Intake and Output
07/13/25 07/14/25 07/15/25
06:59 06:59 06:59
Intake Total 120 / 120 880 / 880
Output Total 270 / 270 300 / 300
Balance 120 / 120 610 / 610 -300 / -300
SaO2 95
Nasal Cannula flow liters per 3
minute
Physical Exam
General: Comfortable
HEENT: Normocephalic
Cardiovascular: S1-S2
Respiratory: Crackles (Bases), Rhonchi (Minimal bilateral/coarse) and Other (Coarse breath sounds bilaterally)
GI: Soft and Non Distended
Neurology: Awake, Alert, Oriented and No Motor Deficits
Skin: Warm
Labs/Micro/Reports
Lab Data
07/14/25 06:05
07/14/25 06:05
[2025-07-14] MEDS: VITAMIN D3 (cholecalciferol) 25 MCG PO (09:55)
[2025-07-14] MEDS: PROTONIX 40 MG PO (09:55)
[2025-07-14] MEDS: DELTASONE 40 MG PO (10:03)
[2025-07-14] MEDS: VITAMIN B-12 1000 MCG PO (10:03)
[2025-07-14] MEDS: CARDIZEM CD 360 MG PO (10:03)
--- NOTE | 2025-07-14 10:42 | CM ---
CM following re: discharge planning.
Reviewed pt's chart, met with pt. Pt's spouse and daughter at bedside.
According to MD pt is medically stable to be discharged today. Both pt and his family are aware, expressed their agreement.
IMM reviewed, placed on chart, pt has a copy.
Per [facility] liaison note, hospital bed, wheelchair and Oxygen order with [facility]. oxygen tank delivered to pt's room already.
Pt's family requested that a wheelchair be delivered to pt's home and not to [facility]
CM spoke to [employer] DME liaison Singh and he confirmed that a wheelchair, hospital bed and home O2 concentrator will be delivered to pt's home around 2:00 p.m. and he asked to discharge the pt around 1:00 p.m. to make sure pt has
enough oxygen in O2 portable tank.
RN and MD are aware of potential discharge time 1:00 P.M.
Please fax discharge instructions to [facility] at [phone]
D/C plan: [facility], necessary DME from [employer] and family support. Spouse and daughter to transport.
--- NOTE | 2025-07-14 10:51 | W.PN.HOSP.TC ---
Today's Communication/Plan
-
Dispo planning
Repeat home O2 evaluation by visiting nurse will be required
Decrease insulin regimen
Prednisone taper regimen
Outpatient pulmonary oncology follow-up
Assessment / Plan
Assessment / Plan
Gen-AAOx3, NAD
HEENT-NC, AT, anicteric, clear oral mm
Neck-supple
CV-reg, no M, +S1/S2
Lungs-bilateral rales, mild end expiratory wheezing bilaterally, on mid flow nasal cannula 4 L
Abd-soft, NT, ND
Ext-no edema
Musculoskeletal-no cyanosis, clubbing
Skin-warm and dry
Neuro-grossly non-focal
Psych-calm, cooperative
80-year-old male past medical history of metastatic pulmonary adenocarcinoma, hypertension, hypothyroidism, anemia, hyperlipidemia was presented with severe shortness of breath. Patient with severe acute hypoxic respiratory failure with
decompensation. Patient required high flow nasal cannula which was slowly weaned down to mid flow nasal cannula. Patient was evaluated during hospitalization by pulmonary and oncologist service. Patient was started on IV steroids which was
transitioned to p.o. prednisone with taper regimen at discharge. Patient also with possibility of sepsis due to committee acquired pneumonia and completed course with antibiotics of ceftriaxone and azithromycin. Patient was started on IV fluid
which was eventually discontinued. Patient was also found to be in new onset of atrial fibrillation and was eval by cardiology. Patient was continued on Cardizem. Patient was not a good anticoagulation candidate due to pulmonary metastasis
including to the brain. Per cardiology monitor off anticoagulation. Patient with improvement in breathing and hypoxemia and he was eventually weaned down from high flow nasal cannula to nasal cannula. Patient heart rate improved with Cardizem.
Patient appetite is slowly also improved. Patient was evaluated by physical therapy and Occupational Therapy throughout hospitalization. Family wanted to take patient home and they requested [facility] assistance. Patient will follow-up with oncology
as outpatient for immunotherapy regimen.
#Acute hypoxic respiratory failure -suspect multifactorial etiology including advanced lung cancer with lymphangitic metastases versus cannot rule out underlying community-acquired pneumonia. Pulmonary edema seems unlikely, did not respond to a
dose of IV Lasix and BNP is not significantly elevated.
CT chest on admission negative for pulmonary embolism. Does show extensive pulmonary metastatic disease, possible lymphangitic carcinomatosis.
Started on IV steroids 07/07 by pulmonary. And now off of IV steroids. Continue with 40 mg p.o. prednisone. taper therapy on discharge.
Continue nebs and now transitioned to prn
Unfortunately, overall prognosis remains poor as - malignancy is the driving factor behind his respiratory failure.
on 3L currently. Will require repeat home O2 eval prior to discharge.
#Sepsis -possibly due to community-acquired pneumonia.
Presentation with fever, leukocytosis, tachycardia. Continue ceftriaxone, azithromycin.
Blood cultures negative so far. COVID and influenza negative.
Completed azithromycin and ceftriaxone antibiotic course for 7 days
#Generalized weakness -progressing over the past few weeks. Likely multifactorial etiology including metastatic lung cancer, possible pneumonia, volume depletion with hypotension.
Hydrated with IV fluids, now off.
Near syncopal episode at home noted by family.
# Nonischemic myocardial injury likely secondary to severe hypoxemia, sepsis
#Hyponatremia -suspect hypovolemic given presentation with hypotension, prerenal azotemia, near syncope. Sodium improving, 141.
Permanently discontinue hydrochlorothiazide.
#Metastatic pulmonary adenocarcinoma -under the care of [facility], Dr. Martin. Cerebral mets noted on brain MRI 06/03/2025. Scheduled for immunotherapy to start as outpatient this week. Had gamma knife radiation to the brain recently,
completed a course of steroids this week.
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 Hypermetabolic pancreatic mass consistent with neoplasm. Sigmoid mass consistent with neoplasm.
Oncology evaluated-not not a candidate for inpatient chemo or immunotherapy in the current setting.
#DM2 with hyperglycemia -hemoglobin A1c 8.9%. Steroid-induced hyperglycemia
Patient with low POC this morning. Will need to decrease Lantus and decrease Premeal insulin
ADA added.
#Essential hypertension -Home meds have been on hold for hypotension but blood pressure and heart rate now elevated.
Was on diltiazem 360 mg daily, hydrochlorothiazide 25 mg daily, losartan 50 mg twice daily, spironolactone 50 mg daily prior to admission.
Will resume diltiazem. Keep other meds on hold for now. Blood pressure controlled 124/68
#Afib- RVR likely worsened with severe hypoxemia
continue cardizem 360mg daily
Not a candidate for anticoagulation in the setting of metastatic disease with recent treatment of brain mets
Cardiology signed off
Echo EF of 65 to 70%.
Hypothyroidism -continue levothyroxine. TSH 4.9, free T4 1.4.
Chronic anemia -hemoglobin at baseline.
Hyperlipidemia -rosuvastatin.
Full code
Discussed with patient spouse and [id number] at bedside in details on daily basis
Dispo-Home with [facility]. Family wants to take patient home.
patient is in need of a semi-electric hospital bed with foam mattress due to the need to facilitate frequent repositioning to prevent bed ulcers and pressure points.
Patient is in need of a wheelchair due to ambulatory dysfunction. A walker has been considered but is clinically ineffective due to patient's condition.
More than 30 minutes spent in discharge including
Final examination of the patient
Summarizing hospital stay
Instructions for continuing care to all relevant caregivers
Preparation of discharge records, prescriptions, and referral forms
Total time spent (in minutes): 53
Anticipated Discharge: Today
Subjective/Interval History
-
Date of Service: July 14, 2025
Patient remains on oxygenation and without any significant increase in requirement
Good appetite
Objective Data
-
Labs:
Laboratory Results
07/14/25
06:05
WBC 14.1 H
Hgb 10.4 L
Hct 31.4 L
Plt Count 337
Sodium 139
Potassium 4.2
Chloride 111 H
Carbon Dioxide 25
BUN 43 H
Creatinine 0.9
Glucose 96
Calcium 8.4
Vital Signs:
Vital Signs
Temp Pulse Resp BP Pulse Ox
98 F 81 16 138/77 93
07/14/25 07:00 07/14/25 07:00 07/14/25 07:00 07/14/25 07:00 07/14/25 07:00
I&O
07/13/25 07/14/25 07/15/25
06:59 06:59 06:59
Intake Total 120 / 120 880 / 880
Output Total 270 / 270 300 / 300
Balance 120 / 120 610 / 610 -300 / -300
--- NOTE | 2025-07-14 10:57 | W.DCSUMMARY ---
Discharge Summary
Discharge Data
Date of Admission: 07/05/25
Date of Discharge: 07/14/25
-
Pending Results: No
Hospital Course
80-year-old male past medical history of metastatic pulmonary adenocarcinoma, hypertension, hypothyroidism, anemia, hyperlipidemia was presented with severe shortness of breath. Patient with severe acute hypoxic respiratory failure with
decompensation. Patient required high flow nasal cannula which was slowly weaned down to mid flow nasal cannula. Patient was evaluated during hospitalization by pulmonary and oncologist service. Patient was started on IV steroids which was
transitioned to p.o. prednisone with taper regimen at discharge. Patient also with severe hyperglycemia which was deemed due to steroids and diabetes mellitus with A1c of 8.9. Lantus dose was increased initially which was stopped further adjusted
prior to discharge. Patient was also started on lispro insulin as Premeal insulin was found to be significantly elevated. Patient also with possibility of sepsis due to committee acquired pneumonia and completed course with antibiotics of
ceftriaxone and azithromycin. Patient was started on IV fluid which was eventually discontinued. Patient was also found to be in new onset of atrial fibrillation and was eval by cardiology. Patient was continued on Cardizem home dose of 360 mg.
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 Per cardiology monitor off anticoagulation. Patient with improvement in breathing and hypoxemia and he was
eventually weaned down from high flow nasal cannula to nasal cannula. Patient heart rate improved with Cardizem. Patient was also taken off multiple blood pressure medication. Patient appetite also improved. Patient was evaluated by physical
therapy and Occupational Therapy throughout hospitalization. Family wanted to take patient home and they requested VNA's assistance. Patient qualified for home oxygenation. Patient will follow-up with oncology as outpatient for immunotherapy
regimen.
Discharge Plan
-
Patient Disposition: Home with Home Care
Discharge Diagnosis/Procedures: Acute hypoxic respiratory failure
Sepsis suspected due to committee acquired pneumonia
Generalized weakness
New onset of atrial fibrillation with rapid ventricular response
Diabetes mellitus with severe hyperglycemia
Condition: Fair
Diet: Diabetic, Carb Controlled
Activity: With assistance and As tolerated
Driving Restrictions: Not until seen by your Dr
Other Services: VN, PT and OT
Referrals:
Eva Martin MD [Active, Oncology]
Swapnil Guillen MD [Active, Pulmonary Medicine] - in two to four weeks
Referral Note: [facility], may see CONSUMER ANALYST if needed.
Diallo Vallejo MD [Active, Cardiology] - in one to two months
Rosa Delgado MD [Family Provider, Internal Medicine] - in less than 1 week
Additional Discharge Medication Instructions: Losartan, hydrochlorothiazide and spironolactone was discontinued.
Lantus dose was increased 12 units.
Insulin lispro Premeal insulin was also added.
Prescriptions:
New
ipratropium-albuterol 0.5 mg-3 mg(2.5 mg base)/3 mL Solution For Nebulization
3 ml inhalation R Q4HPRN PRN (Reason: sob/wheeze) Qty: 90 0RF
prednisone 10 mg Tablet
See Rx Instructions .ROUTE .COMPLEX Qty: 30 0RF
Rx Instructions:
Take By Mouth:
40 mg daily x3 days, 30 mg daily x3 days,
20 mg daily x3 days, 10 mg daily x3 days.
insulin lispro [Humalog KwikPen Insulin] 100 unit/mL Insulin Pen
6 unit SC AC Qty: 5 0RF
(DME) pen needle, diabetic [Pen Needle] 31 gauge x 1/4' needle
See Rx Instructions .Route Qty: 100 0RF
Rx Instructions:
TIDAC
Continued
diltiazem HCl 360 mg capsule,extended release 24hr
360 mg PO DAILY
rosuvastatin [Crestor] 10 mg Tablet
10 mg PO QPM Qty: 0
levothyroxine [Synthroid] 75 mcg Tablet
75 mcg PO DAILY Qty: 0
travoprost 0.004 % Drops
1 drp RIGHT EYE Q48H@1900
pantoprazole 40 mg Tablet,Delayed Release (Dr/Ec)
40 mg PO DAILY Qty: 30 0RF
cyanocobalamin (vitamin B-12) 1,000 mcg Tablet
1,000 mcg PO DAILY
acetaminophen [Tylenol Extra Strength] 500 mg Tablet
1,000 mg PO Q6HPRN PRN (Reason: mild pain)
cholecalciferol (vitamin D3) [Vitamin D3] 25 mcg (1,000 unit) Tablet
25 mcg PO DAILY
omega 9-ltc-hcf-fish oil [Fish Oil] 1,000 (120-180) mg Capsule
1 cap PO DAILY
Changed
insulin glargine [Lantus Solostar U-100 Insulin] 100 unit/mL (3 mL) Insulin Pen
12 unit SC HS Qty: 0 0RF
Discontinued
losartan 50 mg Tablet
50 mg PO BID
hydrochlorothiazide 25 mg Tablet
25 mg PO DAILY Qty: 0
spironolactone 50 mg Tablet
50 mg PO DAILY Qty: 0
azithromycin 250 mg Tablet
0 mg PO .COMPLEX
Rx Instructions:
For 250 mg dose pack: take 500 mg today (day 1), then 250 mg for 4 days (days 2-5)
Discharge Orders:
Discharge Patient (As Directed); Ordered 07/14/25
Ordered By: Beny Gonzales
Discharge Date and Time
Discharge Date/Time: 07/14/25 14:27
Print Language: FINNISH
[2025-07-14 11:59] VITALS: BP 141/78
[2025-07-14 12:23] LABS: Glucose - Point of Care 131 mg/dl (70-99)
== END 2025-07-14 14:27 | disposition home health service (06) | DRG 871 ==
LOC: 2 NORTH 21:17
PROVIDERS: Emergency Medicine; Hospitalist; ADMITTING PHYSICIAN Hospitalist; ATTENDING PHYSICIAN Hospitalist; CONSULT PHYSICIAN Internal Medicine; CONSULT PHYSICIAN Internal Medicine Cardiovascular Disease; CONSULT PHYSICIAN Internal Medicine Hematology & Oncology; EMERGENCY PHYSICIAN Emergency Medicine; FAMILY PHYSICIAN Internal Medicine
PROC: 5A0935A Assistance with Respiratory Ventilation, Less than 24 Consecutive Hours, High Flow/Velocity Cannula (ICD-10-PCS; 2025-07-07)
PROC: 5A09357 Assistance with Respiratory Ventilation, Less than 24 Consecutive Hours, Continuous Positive Airway Pressure (ICD-10-PCS; 2025-07-14)
DX: A41.9 Sepsis, unspecified organism (principal); J18.9 Pneumonia, unspecified organism; J96.01 Acute respiratory failure with hypoxia; C34.90 Malignant neoplasm of unspecified part of unspecified bronchus or lung; C79.31 Secondary malignant neoplasm of brain; C77.1 Secondary and unspecified malignant neoplasm of intrathoracic lymph nodes; E87.1 Hypo-osmolality and hyponatremia; I5A Non-ischemic myocardial injury (non-traumatic); C78.89 Secondary malignant neoplasm of other digestive organs; C78.5 Secondary malignant neoplasm of large intestine and rectum; E87.3 Alkalosis; C79.71 Secondary malignant neoplasm of right adrenal gland; C79.51 Secondary malignant neoplasm of bone; I10 Essential (primary) hypertension; I48.91 Unspecified atrial fibrillation; E11.65 Type 2 diabetes mellitus with hyperglycemia; E03.9 Hypothyroidism, unspecified; E78.00 Pure hypercholesterolemia, unspecified; I44.0 Atrioventricular block, first degree; K21.9 Gastro-esophageal reflux disease without esophagitis; T38.0X5A Adverse effect of glucocorticoids and synthetic analogues, initial encounter; D63.0 Anemia in neoplastic disease; Z79.4 Long term (current) use of insulin; Z79.52 Long term (current) use of systemic steroids; Z79.890 Hormone replacement therapy; Z79.899 Other long term (current) drug therapy; Z11.52 Encounter for screening for COVID-19; Z96.642 Presence of left artificial hip joint; Z96.652 Presence of left artificial knee joint; Z92.3 Personal history of irradiation; Z87.891 Personal history of nicotine dependence
CPT/HCPCS: 36415; 36600; 71045; 71046; 71275; 80048; 80053; 81003; 81015; 82248; 82805; 82947; 82962; 83036; 83605; 83735; 83880; 84100; 84439; 84443; 84481; 84484; 85025; 87040; 87449; 87502; 87811; 87899; 93005; 94640; 96365; 96375; 97116; 97163; 97167; 97530; 97535; 99291; Q9967

== ENCOUNTER → 2025-08-21 18:31 | Outpatient (REF) | payer OTHER, SELFPAY | LOC: MRI 18:31 | PROVIDERS: ATTENDING PHYSICIAN Nurse Practitioner | DX: C79.31 Secondary malignant neoplasm of brain (principal) | CPT/HCPCS: 70553; A9575 ==

== ENCOUNTER → 2025-08-31 09:36 | Outpatient (REF) | payer OTHER, SELFPAY | LOC: RAD 09:36 | PROVIDERS: ATTENDING PHYSICIAN Student in an Organized Health Care Education/Training Program; FAMILY PHYSICIAN Internal Medicine; REFERRING PHYSICIAN Internal Medicine Hematology & Oncology | DX: R06.02 Shortness of breath (principal) | CPT/HCPCS: 93970 ==